=== PATIENT | female | born 1995 | race Caucasian/White ===

== ENCOUNTER 2016-04-25 20:54 | Emergency (ER) | payer MEDICAID ==
[2016-04-25 21:03] VITALS: BP 151/70; PULSE 96; RESP 18; TEMP 98
[2016-04-25] MEDS ORDERED: ONDANSETRON ODT 4 MG TAB PO STA (21:23)
--- NOTE | 2016-04-25 21:25 | ED ---
General Adult HPI - General Chief complaint: Abdominal Pain Stated complaint: Female Time Seen by Provider: 04/25/16 21:19 Source: patient, RN notes reviewed Mode of arrival: ambulatory Limitations: no limitations - History of Present Illness Initial comments: Patient is a pleasant 20-year-old female presenting to the emergency department with complaints of dysuria. Onset was yesterday. Symptoms have progressively worsened since that time. Patient does have a Barrett and hematuria as well. No vaginal discharge. Patient has mild suprapubic discomfort. Patient has moderate nausea. No vomiting. No back pain. No fevers. Patient has had similar symptoms associated with urinary tract infection in the past. - Related Data Home Medications Medication Instructions Recorded Confirmed LORazepam [Ativan] 0.5 mg PO TID PRN 04/25/16 04/25/16 Previous Rx's Medication Instructions Recorded Ondansetron Odt [Zofran Odt] 4 mg PO Q8HR PRN #10 tab 04/25/16 Phenazopyridine [Pyridium] 200 mg PO TID #5 tablet 04/25/16 Sulfamethox-Tmp 800-160Mg [Bactrim 1 each PO Q12HR #18 tab 04/25/16 DS 800-160 mg] Allergies Allergy/AdvReac Type Severity Reaction Status Date / Time No Known Allergies Allergy Verified 04/25/16 21:41 Review of Systems ROS Statement: Those systems with pertinent positive or pertinent negative responses have been documented in the HPI. ROS Other: All systems not noted in ROS Statement are negative. Constitutional: Denies: fever Eyes: Denies: eye pain ENT: Denies: ear pain Respiratory: Denies: cough Cardiovascular: Denies: chest pain Endocrine: Denies: fatigue Gastrointestinal: Reports: nausea Genitourinary: Reports: urgency, dysuria, frequency, hematuria. Denies: discharge Musculoskeletal: Denies: back pain Skin: Denies: rash Past Medical History Past Medical History: No Reported History History of Any Multi-Drug Resistant Organisms: None Reported Past Surgical History: Orthopedic Surgery Past Psychological History: Anxiety Smoking Status: Never smoker Past Alcohol Use History: None Reported Past Drug Use History: None Reported General Exam Limitations: no limitations General appearance: alert, in no apparent distress Head exam: Present: atraumatic Eye exam: Present: normal appearance Neck exam: Present: normal inspection Respiratory exam: Present: normal lung sounds bilaterally Cardiovascular Exam: Present: regular rate, normal rhythm GI/Abdominal exam: Present: soft, tenderness (Mild suprapubic). Absent: distended, guarding, rebound, rigid Extremities exam: Present: normal inspection Neurological exam: Present: alert Psychiatric exam: Present: normal affect, normal mood Skin exam: Absent: rash Course Vital Signs 04/25/16 20:59 Temperature 98.0 F Pulse Rate 96 Respiratory 18 Rate Blood Pressure 151/70 O2 Sat by Pulse 98 Oximetry Medical Decision Making - Lab Data Lab Results 04/25/16 04/25/16 Range/Units 21:27 21:27 Urine RBC >182 H (0-5) /hpf Urine WBC >182 H (0-5) /hpf Urine WBC Clumps Few H (None) /hpf Ur Squamous Epith Cells 4 (0-4) /hpf Urine Bacteria Occasional H (None) /hpf Urine Yeast (Budding) Few H (None) /hpf Urine HCG, Qual Not Detected (Not Detectd) Disposition Clinical Impression: Urinary tract infection Disposition: HOME SELF-CARE Condition: Stable Instructions: Urinary Tract Infection in Women (ED) Additional Instructions: Please follow-up with primary care physician in the next couple of days for recheck. Return for increased pain, abdominal pain, back pain, vomiting, fevers , worsening symptoms or other concerns. Prescriptions: Ondansetron Odt [Zofran Odt] 4 mg PO Q8HR PRN #10 tab PRN Reason: Nausea Phenazopyridine [Pyridium] 200 mg PO TID #5 tablet Sulfamethox-Tmp 800-160Mg [Bactrim DS 800-160 mg] 1 each PO Q12HR #18 tab Referrals: Dallas Mccloud MD [Primary Care Provider] - 1-2 days Time of Disposition: 22:08
[2016-04-25 22:02] LABS: Bacteria,Urine Occasional /hpf; Particle Count 3277; RBC,Urine >182 /hpf (0-5); Squamous Epithelial Cell,Urine 4 /hpf (0-4); WBC,Urine >182 /hpf (0-5)
[2016-04-25 22:04] LABS: Appearance,Urine Slightly Cloudy (Clear)
[2016-04-25 22:06] LABS: UA Billing (MACRO vs. MICRO) MICRO
[2016-04-25] MEDS ORDERED: SULFAMETH-TMP DS STARTER PACK 2 TAB BTL PO STA (22:06)
[2016-04-25] MEDS ORDERED: PHENAZOPYRIDINE 200 MG TAB PO STA (22:06)
== END 2016-04-25 22:25 | disposition home or self-care (01) ==
LOC: EC 20:54
DX: N39.0 Urinary tract infection, site not specified (principal); R31.9 Hematuria, unspecified
CPT/HCPCS: 81001; 81025; 87086; 99284

== ENCOUNTER 2016-06-06 16:38 | Emergency (ER) | payer MEDICAID ==
[2016-06-06] MEDS ORDERED: SODIUM CHLORIDE 0.9% 1,000 ML IV STA ×2 (17:26)
[2016-06-06] MEDS ORDERED: ONDANSETRON 4 MG/2 ML VIAL IVP STA (17:26)
--- NOTE | 2016-06-06 17:28 | ED ---
General Adult HPI - General Chief complaint: Abdominal Pain Stated complaint: Abd Pain, Vomiting Time Seen by Provider: 06/06/16 17:20 Source: patient, RN notes reviewed Mode of arrival: ambulatory Limitations: no limitations - History of Present Illness Initial comments: Patient 20-year-old female who presents emergency room today with chief complaint of symptoms of nausea vomiting times one day. She does admit to some abdominal cramping yesterday. States pain is getting worse to the right side of the abdomen today. Patient admits to episodes of nausea vomiting proxy 4:30 AM. Denies any signs of blood. Denies any diarrhea. Denies ever having similar symptoms in the past. Denies any surgical history. Patient denies any recent fever, chills, shortness of breath, chest pain, back pain, numbness or tingling, dysuria or hematuria, constipation or diarrhea, headaches or visual changes, or any other complaints. - Related Data Home Medications Medication Instructions Recorded Confirmed No Known Home Medications [No 06/06/16 06/06/16 Known Home Medications] Allergies Allergy/AdvReac Type Severity Reaction Status Date / Time Iodinated Contrast Media - Allergy Unknown Verified 06/06/16 17:34 Oral and Review of Systems ROS Statement: Those systems with pertinent positive or pertinent negative responses have been documented in the HPI. ROS Other: All systems not noted in ROS Statement are negative. Past Medical History Past Medical History: No Reported History History of Any Multi-Drug Resistant Organisms: None Reported Past Surgical History: Orthopedic Surgery Past Psychological History: Anxiety Smoking Status: Never smoker Past Alcohol Use History: None Reported Past Drug Use History: None Reported General Exam - General Exam Comments Initial Comments: General: The patient is awake and alert, in no distress, and does not appear acutely ill. Eye: Pupils are equal, round and reactive to light, extra-ocular movements are intact. No nystagmus. There is normal conjunctiva bilaterally. No signs of icterus. Ears, nose, mouth and throat: There are moist mucous membranes and no oral lesions. Neck: The neck is supple, there is no tenderness or JVD. Cardiovascular: There is a regular rate and rhythm. No murmur, rub or gallop is appreciated. Respiratory: Lungs are clear to auscultation, respirations are non-labored, breath sounds are equal. No wheezes, stridor, rales, or rhonchi. Gastrointestinal: Soft, non-distended, non-tender abdomen without masses or organomegaly noted. There is no rebound or guarding present. No CVA tenderness. Bowel sounds are unremarkable. Musculoskeletal: Normal ROM, no tenderness. Strength 5/5. Sensation intact. Pulses equal bilaterally 2+. Neurological: A&O x 3. CN II-XII intact, There are no obvious motor or sensory deficits. Coordination appears grossly intact. Speech is normal. Skin: Skin is warm and dry and no rashes or lesions are noted. Psychiatric: Cooperative, appropriate mood & affect, normal judgment. Limitations: no limitations Course Vital Signs 06/06/16 06/06/16 17:02 19:04 Temperature 97.9 F 98.5 F Pulse Rate 94 74 Respiratory 18 18 Rate Blood Pressure 143/77 106/64 O2 Sat by Pulse 97 100 Oximetry Medical Decision Making - Medical Decision Making Patient reexamined at this time shows no signs of distress. Signs symptoms of early appendicitis were discussed. At this time patient has no rebound tenderness. No guarding. No tenderness over McBurney's point. Negative laxity. Negative white count. No fever. Patient will be discharged with nausea medication. Advised return to emergency room if any symptoms increase or worsen or for any other concerns. - Lab Data Result diagrams: 06/06/16 18:02 06/06/16 18:02 Lab Results 06/06/16 06/06/16 06/06/16 Range/Units 18:02 18:02 18:02 WBC 7.2 (3.8-10.6) k/uL RBC 4.80 (3.80-5.40) m/uL Hgb 14.2 (11.4-16.0) gm/dL Hct 43.0 (34.0-46.0) % MCV 89.7 (80.0-100.0) fL MCH 29.6 (25.0-35.0) pg MCHC 33.0 (31.0-37.0) g/dL RDW 12.7 (11.5-15.5) % Plt Count 343 (150-450) k/uL Neutrophils % 58 % Lymphocytes % 28 % Monocytes % 7 % Eosinophils % 4 % Basophils % 1 % Neutrophils # 4.2 (1.3-7.7) k/uL Lymphocytes # 2.0 (1.0-4.8) k/uL Monocytes # 0.5 (0-1.0) k/uL Eosinophils # 0.3 (0-0.7) k/uL Basophils # 0.1 (0-0.2) k/uL Sodium 142 (137-145) mmol/L Potassium 4.0 (3.5-5.1) mmol/L Chloride 104 (98-107) mmol/L Carbon Dioxide 25 (22-30) mmol/L Anion Gap 13 mmol/L BUN 10 (7-17) mg/dL Creatinine 0.68 (0.52-1.04) mg/dL Est GFR (MDRD) Af Amer >60 (>60 ml/min/1.73 sqM) Est GFR (MDRD) Non-Af >60 (>60 ml/min/1.73 sqM) Glucose 88 (74-99) mg/dL Plasma Lactic Acid James (0.7-2.0) mmol/L Calcium 10.0 (8.4-10.2) mg/dL Total Bilirubin 1.1 (0.2-1.3) mg/dL AST 24 (14-36) U/L ALT 29 (9-52) U/L Alkaline Phosphatase 62 (38-126) U/L Total Protein 7.8 (6.3-8.2) g/dL Albumin 4.8 (3.5-5.0) g/dL Amylase 61 (30-110) U/L Lipase 39 (23-300) U/L Urine Color Urine Appearance (Clear) Urine pH (5.0-8.0) Ur Specific [place] (1.001-1.035) Urine Protein (Negative) Urine Glucose (UA) (Negative) Urine Ketones (Negative) Urine Blood (Negative) Urine Nitrite (Negative) Urine Bilirubin (Negative) Urine Urobilinogen (<2.0) mg/dL Ur Leukocyte Esterase (Negative) Urine RBC (0-5) /hpf Urine WBC (0-5) /hpf Ur Squamous Epith Cells (0-4) /hpf Urine Bacteria (None) /hpf Urine HCG, Qual Not Detected (Not Detectd) 06/06/16 06/06/16 Range/Units 18:02 18:02 WBC (3.8-10.6) k/uL RBC (3.80-5.40) m/uL Hgb (11.4-16.0) gm/dL Hct (34.0-46.0) % MCV (80.0-100.0) fL MCH (25.0-35.0) pg MCHC (31.0-37.0) g/dL RDW (11.5-15.5) % Plt Count (150-450) k/uL Neutrophils % % Lymphocytes % % Monocytes % % Eosinophils % % Basophils % % Neutrophils # (1.3-7.7) k/uL Lymphocytes # (1.0-4.8) k/uL Monocytes # (0-1.0) k/uL Eosinophils # (0-0.7) k/uL Basophils # (0-0.2) k/uL Sodium (137-145) mmol/L Potassium (3.5-5.1) mmol/L Chloride (98-107) mmol/L Carbon Dioxide (22-30) mmol/L Anion Gap mmol/L BUN (7-17) mg/dL Creatinine (0.52-1.04) mg/dL Est GFR (MDRD) Af Amer (>60 ml/min/1.73 sqM) Est GFR (MDRD) Non-Af (>60 ml/min/1.73 sqM) Glucose (74-99) mg/dL Plasma Lactic Acid James 0.8 (0.7-2.0) mmol/L Calcium (8.4-10.2) mg/dL Total Bilirubin (0.2-1.3) mg/dL AST (14-36) U/L ALT (9-52) U/L Alkaline Phosphatase (38-126) U/L Total Protein (6.3-8.2) g/dL Albumin (3.5-5.0) g/dL Amylase (30-110) U/L Lipase (23-300) U/L Urine Color Yellow Urine Appearance Clear (Clear) Urine pH 6.5 (5.0-8.0) Ur Specific [place] 1.014 (1.001-1.035) Urine Protein Negative (Negative) Urine Glucose (UA) Negative (Negative) Urine Ketones Negative (Negative) Urine Blood Trace H (Negative) Urine Nitrite Negative (Negative) Urine Bilirubin Negative (Negative) Urine Urobilinogen <2.0 (<2.0) mg/dL Ur Leukocyte Esterase Negative (Negative) Urine RBC 2 (0-5) /hpf Urine WBC <1 (0-5) /hpf Ur Squamous Epith Cells 3 (0-4) /hpf Urine Bacteria Rare H (None) /hpf Urine HCG, Qual (Not Detectd) Disposition Clinical Impression: Nausea and vomiting Disposition: HOME SELF-CARE Condition: Good Instructions: Acute Nausea and Vomiting (ED) Additional Instructions: Please use medication as discussed. Please follow-up with family doctor in the next 2 days of symptoms have not improved. Please return to emergency room if the symptoms increase or worsen or for any other concerns. Time of Disposition: 19:19
[2016-06-06 18:15] LABS: Basophils # (A) 0.1 k/uL (0-0.2); Basophils % (A) 1 %; CH 29.8; CHCM 33.4; Eosinophils # (A) 0.3 k/uL (0-0.7); Eosinophils % (A) 4 %; HDW 2.27; HGB 14.2 gm/dL (11.4-16.0); Luc # (Auto) 0.14; Luc % (Auto) 2; Lymphocytes % (A) 28 %; MCH 29.6 pg (25.0-35.0); MCV 89.7 fL (80.0-100.0); Mean Platelet Volume 6.6; Monocytes # (A) 0.5 k/uL (0-1.0); Monocytes % (A) 7 %; Neutrophils # (A) 4.2 k/uL (1.3-7.7); Neutrophils % (A) 58 %; RDW 12.7 % (11.5-15.5); WBC 7.2 k/uL (3.8-10.6); WBC (Perox) 7.32
[2016-06-06 18:18] LABS: Appearance,Urine Clear (Clear); Bacteria,Urine Rare /hpf; Bilirubin,Urine Negative (Negative); Glucose,Urine (UA) Negative (Negative); Ketones,Urine Negative (Negative); Leukocyte Esterase,Urine Negative (Negative); Nitrite,Urine Negative (Negative); PH, Urine 6.5 (5.0-8.0); Particle Count 980; Protein,Urine Negative (Negative); RBC,Urine 2 /hpf (0-5); Specific Gravity,Urine 1.014 (1.001-1.035); Squamous Epithelial Cell,Urine 3 /hpf (0-4); UA Billing (MACRO vs. MICRO) MICRO; Urobilinogen,Urine <2.0 mg/dL (<2.0); WBC,Urine <1 /hpf (0-5)
[2016-06-06 18:29] LABS: ALT 29 U/L (9-52); AST 24 U/L (14-36); Alkaline Phosphatase 62 U/L (38-126); Amylase 61 U/L (30-110); Anion Gap 13 mmol/L; Blood Urea Nitrogen 10 mg/dL (7-17); Carbon Dioxide 25 mmol/L (22-30); Chloride 104 mmol/L (98-107); Glucose 88 mg/dL (74-99); Non-African American GFR(MDRD) >60 (>60 ml/min/1.73 sqM); Sodium 142 mmol/L (137-145); Total Bilirubin 1.1 mg/dL (0.2-1.3); Total Protein 7.8 g/dL (6.3-8.2)
--- NOTE | 2016-06-06 18:34 | XR ---
EXAMINATION TYPE: XR KUB DATE OF EXAM: 06/06/2016 6:25 PM CLINICAL HISTORY: Abdominal pain and vomiting. TECHNIQUE: 2 upright KUB images of the abdomen are obtained. COMPARISON: CT abdomen pelvis February 18, 2010. FINDINGS: Scattered gas is seen in non-distended stomach and small bowel loops. Gas and fecal mater ial is seen in non-distended colon. There is no visceromegaly, pneumoperitoneum, or abnormal calcif ication appreciated. The lung bases are clear and the osseous structures are intact. IMPRESSION: Overall nonobstructive bowel gas pattern.
[2016-06-06] MEDS ORDERED: KETOROLAC 30 MG/ML 1 ML VIAL IVP STA (18:52)
[2016-06-06 20:00] VITALS: BP 113/65; PULSE 82; RESP 16; TEMP 97.8
== END 2016-06-06 19:54 | disposition home or self-care (01) ==
LOC: EC 16:38
DX: R11.2 Nausea with vomiting, unspecified (principal); R10.9 Unspecified abdominal pain; Z91.041 Radiographic dye allergy status
CPT/HCPCS: 99284; 96374; 96375; 96361; 36415; 80053; 82150; 83605; 83690; 85025; 81001; 81025; 74000; J2405; J1885

== ENCOUNTER 2016-07-13 10:33 | Emergency (ER) | payer MEDICAID ==
[2016-07-13] MEDS ORDERED: SODIUM CHLORIDE 0.9% 1,000 ML IV ONE (11:45)
[2016-07-13] MEDS ORDERED: diphenhydrAMINE 50 MG/ML 1 ML VIAL IVP STA (11:46)
[2016-07-13] MEDS ORDERED: PYRIDOXINE 100 MG/ML 1 ML VIAL IVP STA (11:46)
[2016-07-13 11:58] LABS: Appearance,Urine Clear (Clear); Bilirubin,Urine Negative (Negative); Glucose,Urine (UA) Negative (Negative); Ketones,Urine Negative (Negative); Leukocyte Esterase,Urine Negative (Negative); Nitrite,Urine Negative (Negative); Protein,Urine Negative (Negative); Specific Gravity,Urine 1.014 (1.001-1.035); UA Billing (MACRO vs. MICRO) CHEM; Urobilinogen,Urine <2.0 mg/dL (<2.0)
[2016-07-13 12:04] LABS: Basophils % (A) 0 %; CH 30.2; CHCM 33.7; Eosinophils # (A) 0.3 k/uL (0-0.7); Eosinophils % (A) 3 %; HCT 39.7 % (34.0-46.0); HDW 2.17; HGB 13.2 gm/dL (11.4-16.0); Luc # (Auto) 0.15; Luc % (Auto) 2; Lymphocytes # (A) 1.8 k/uL (1.0-4.8); Lymphocytes % (A) 21 %; MCH 29.9 pg (25.0-35.0); MCHC 33.3 g/dL (31.0-37.0); MCV 89.8 fL (80.0-100.0); Mean Platelet Volume 6.7; Monocytes # (A) 0.5 k/uL (0-1.0); Monocytes % (A) 5 %; Neutrophils # (A) 6.1 k/uL (1.3-7.7); Neutrophils % (A) 69 %; RBC 4.42 m/uL (3.80-5.40); WBC 8.9 k/uL (3.8-10.6); WBC (Perox) 8.75
[2016-07-13 12:09] LABS: ALT 26 U/L (9-52); AST 21 U/L (14-36); Alkaline Phosphatase 63 U/L (38-126); Amylase 65 U/L (30-110); Anion Gap 13 mmol/L; Blood Urea Nitrogen 7 mg/dL (7-17); Calcium 10.1 mg/dL (8.4-10.2); Carbon Dioxide 22 mmol/L (22-30); Chloride 105 mmol/L (98-107); Glucose 89 mg/dL (74-99); Magnesium 1.9 mg/dL (1.6-2.3); Non-African American GFR(MDRD) >60 (>60 ml/min/1.73 sqM); Potassium 4.2 mmol/L (3.5-5.1); Sodium 140 mmol/L (137-145); Total Bilirubin 1.1 mg/dL (0.2-1.3); Total Protein 7.5 g/dL (6.3-8.2)
--- NOTE | 2016-07-13 12:22 | ED ---
Nausea/Vomiting/Diarrhea HPI - General Chief complaint: Nausea/Vomiting/Diarrhea Stated complaint: 6 WEEKS PREG, VOMITING AND ABDOMINAL PAIN Time Seen by Provider: 07/13/16 11:44 Source: patient, RN notes reviewed Mode of arrival: wheelchair Limitations: no limitations - History of Present Illness Initial comments: Patient's 20-year-old female presents to the emergency room for evaluation of nausea vomiting abdominal pain. Patient states she is about 6 weeks . Patient states this is her first . Patient states she hasn't followed up with [facility] regarding this yet. Patient states she's been vomiting the past 4 days. Patient also has been developing lower abdominal cramping since yesterday. Patient denies vaginal bleeding. Patient denies abnormal vaginal discharge. Patient denies pain or burning during urination, trouble urinating or blood in urine. patient denies history of STDs. Patient states she is beginning to feel weak because she is unable to eat. Patient denies fevers or chills. Patient states she has slight dizziness. Patient denies chest pain or shortness of breath. - Related Data Home Medications Medication Instructions Recorded Confirmed Pnv,Calcium 72/Iron/Folic Acid 1 tab PO DAILY 07/13/16 07/13/16 [ Plus Tablet] Previous Rx's Medication Instructions Recorded Ondansetron Odt [Zofran ODT] 4 mg PO Q8HR PRN #20 tab 06/06/16 Metoclopramide HCl [Reglan] 5 mg PO TID PRN #12 tablet 07/13/16 Allergies Allergy/AdvReac Type Severity Reaction Status Date / Time Iodinated Contrast Media - Allergy Unknown Verified 07/13/16 11:17 Oral and Review of Systems ROS Statement: Those systems with pertinent positive or pertinent negative responses have been documented in the HPI. ROS Other: All systems not noted in ROS Statement are negative. Past Medical History Past Medical History: No Reported History History of Any Multi-Drug Resistant Organisms: None Reported Past Surgical History: Orthopedic Surgery Past Psychological History: Anxiety Smoking Status: Never smoker Past Alcohol Use History: None Reported Past Drug Use History: None Reported General Exam - General Exam Comments Initial Comments: laying in exam room, no acute distress. Limitations: no limitations General appearance: alert, in no apparent distress Head exam: Present: atraumatic, normocephalic, normal inspection Eye exam: Present: normal appearance ENT exam: Present: normal exam Neck exam: Present: normal inspection Respiratory exam: Present: normal lung sounds bilaterally. Absent: respiratory distress Cardiovascular Exam: Present: regular rate, normal rhythm, normal heart sounds GI/Abdominal exam: Present: soft, normal bowel sounds. Absent: distended, tenderness, guarding, rebound, rigid Extremities exam: Present: normal inspection Back exam: Present: normal inspection Neurological exam: Present: alert, oriented X3, CN II-XII intact, normal gait Psychiatric exam: Present: normal affect, normal mood Skin exam: Present: warm, dry, intact, normal color. Absent: rash Course Vital Signs 07/13/16 07/13/16 10:48 14:13 Temperature 98.9 F 97.4 F L Pulse Rate 89 94 Respiratory 20 18 Rate Blood Pressure 128/73 121/62 O2 Sat by Pulse 97 100 Oximetry Medical Decision Making - Medical Decision Making patient is a 20-year-old female presents to the emergency room for evaluation of nausea, vomiting and abdominal cramping. Patient is . This is patient' s first . Patient was given fluids and medication for nausea. Patient states that she is feeling a lot better. Ultrasound showed a early intrauterine . Advised patient to follow-up with [facility]. Patient states she understands everything that was discussed with her. Return parameters discussed. Case discussed with Dr. Haynes. - Lab Data Result diagrams: 07/13/16 11:13 07/13/16 11:13 Lab Results 07/13/16 07/13/16 07/13/16 Range/Units 11:13 11:13 11:13 WBC 8.9 (3.8-10.6) k/uL RBC 4.42 (3.80-5.40) m/uL Hgb 13.2 (11.4-16.0) gm/dL Hct 39.7 (34.0-46.0) % MCV 89.8 (80.0-100.0) fL MCH 29.9 (25.0-35.0) pg MCHC 33.3 (31.0-37.0) g/dL RDW 13.0 (11.5-15.5) % Plt Count 345 (150-450) k/uL Neutrophils % 69 % Lymphocytes % 21 % Monocytes % 5 % Eosinophils % 3 % Basophils % 0 % Neutrophils # 6.1 (1.3-7.7) k/uL Lymphocytes # 1.8 (1.0-4.8) k/uL Monocytes # 0.5 (0-1.0) k/uL Eosinophils # 0.3 (0-0.7) k/uL Basophils # 0.0 (0-0.2) k/uL Sodium 140 (137-145) mmol/L Potassium 4.2 (3.5-5.1) mmol/L Chloride 105 (98-107) mmol/L Carbon Dioxide 22 (22-30) mmol/L Anion Gap 13 mmol/L BUN 7 (7-17) mg/dL Creatinine 0.55 (0.52-1.04) mg/dL Est GFR (MDRD) Af Amer >60 (>60 ml/min/1.73 sqM) Est GFR (MDRD) Non-Af >60 (>60 ml/min/1.73 sqM) Glucose 89 (74-99) mg/dL Calcium 10.1 (8.4-10.2) mg/dL Magnesium 1.9 (1.6-2.3) mg/dL Total Bilirubin 1.1 (0.2-1.3) mg/dL AST 21 (14-36) U/L ALT 26 (9-52) U/L Alkaline Phosphatase 63 (38-126) U/L Total Protein 7.5 (6.3-8.2) g/dL Albumin 4.8 (3.5-5.0) g/dL Amylase 65 (30-110) U/L Lipase 38 (23-300) U/L HCG, Quant 11471.1 mIU/mL Urine Color Yellow Urine Appearance Clear (Clear) Urine pH 6.0 (5.0-8.0) Ur Specific [place] 1.014 (1.001-1.035) Urine Protein Negative (Negative) Urine Glucose (UA) Negative (Negative) Urine Ketones Negative (Negative) Urine Blood Negative (Negative) Urine Nitrite Negative (Negative) Urine Bilirubin Negative (Negative) Urine Urobilinogen <2.0 (<2.0) mg/dL Ur Leukocyte Esterase Negative (Negative) - Radiology Data Radiology results: report reviewed, image reviewed Disposition Clinical Impression: Nausea and vomiting in , Abdominal pain affecting Disposition: HOME SELF-CARE Condition: Good Instructions: Nausea and Vomiting in (ED), Abdominal Pain in (ED) Additional Instructions: Drink plenty of fluids. Tylenol as needed for discomfort. Please follow up with [facility]. If any new symptom arises or symptoms worsen, return to ER as soon as possible. Prescriptions: Metoclopramide HCl [Reglan] 5 mg PO TID PRN #12 tablet PRN Reason: Nausea Referrals: Dallas Mccloud MD [Primary Care Provider] - 1-2 days Ashlyn Carvajal DO [Doctor of Osteopathic Medicine] - 1-2 days Time of Disposition: 13:55
[2016-07-13] MEDS ORDERED: ACETAMINOPHEN TAB 325 MG TAB PO STA (12:42)
[2016-07-13 12:54] LABS: HCG,Quantitative Serum 34612.1 mIU/mL
--- NOTE | 2016-07-13 13:30 | US ---
EXAMINATION TYPE: US OB <=14 wks transvag DATE OF EXAM: 07/13/2016 COMPARISON: NONE CLINICAL HISTORY: Pain. EXAM PERFORMED: Transvaginal (TV) and Transabdominal (TA) endovaginal scanning was performed for bet ter evaluation of the uterus and ovaries. EXAM MEASUREMENTS: GESTATIONAL AGE / DATING Physician Established: (5 weeks/5 days) EDC: 03/10/2017 Dates by LMP: (5 weeks/5 days) EDC: 03/10/2017 Dates by First Scan: no previous Dates by Current Scan for: (5 weeks/6 days) EDC: 03/10/2017 MATERNAL ANATOMY Uterus: 9.3 x 5.0 x 5.9 cm Right Ovary: 2.2 x 2.2 x 2.4 cm Left Ovary: 3.3 x 1.8 x 2.4 cm Post CDS / Adnexa: wnl Presence of free fluid: no Presence of corpus luteal cyst: no Presence of subchorionic bleed: no GESTATION / SURVEY CRL: 0.3 cm (5 weeks/6 days) Yolk Sac (normal less than 6mm): 4 mm Heart Rate: cardiac motion identified, cannot measure with accuracy due to size of fetus Date of LMP: 06/03/2016 Early IUP of 5 weeks 6 days. Cardiac motion detected, but unable to measure with accuracy due to fet al size IMPRESSION: Exam is limited. Findings may correspond to early gestation approximately 5 weeks 6 days with estimat ed date of delivery 09 March 2017, follow-up is suggested.
[2016-07-13 14:13] VITALS: BP 121/62; PULSE 94; RESP 18; TEMP 97.4
== END 2016-07-13 14:13 | disposition home or self-care (01) ==
LOC: EC 10:33
DX: O21.9 Vomiting of pregnancy, unspecified (principal); O99.89 Other specified diseases and conditions complicating pregnancy, childbirth and the puerperium; R10.30 Lower abdominal pain, unspecified; Z3A.01 Less than 8 weeks gestation of pregnancy; Z79.899 Other long term (current) drug therapy; Z91.041 Radiographic dye allergy status
CPT/HCPCS: 80053; 82150; 83690; 83735; 85025; 81003; 84702; 76801; 76817; 99284; 96374; 96375; 96361 ×2; J1200; J3415

== ENCOUNTER 2016-07-27 08:30 | Emergency (ER) | payer MEDICAID ==
[2016-07-27] MEDS ORDERED: ACETAMINOPHEN TAB 500 MG TAB PO STA (08:43)
[2016-07-27] MEDS ORDERED: METOCLOPRAMIDE 5 MG/ML 2 ML VIAL IVP STA (08:43)
[2016-07-27] MEDS ORDERED: SODIUM CHLORIDE 0.9% 1,000 ML IV STA (08:43)
--- NOTE | 2016-07-27 08:58 | ED ---
Chest Pain HPI - General Chief Complaint: Chest Pain Stated Complaint: CHEST PAIN, 8 WEEKS PREG Time Seen by Provider: 07/27/16 08:37 Source: patient, RN notes reviewed Mode of arrival: wheelchair Limitations: no limitations - History of Present Illness Initial Comments: 20-year-old female presents to the emergency Department chief complaint of left- sided chest pain. Patient states it feels as if her heart is pounding. Patient states she does have some mild shortness of breath with this. Patient does admit to a history of constipation and states that she is currently . Patient states she's had increased nausea and vomiting and has not been tolerating much oral fluids. Patient states that she talked to her glass etcher and she was referred here. Patient states that she is a states that she has had an ultrasound that showed normal thus far. Patient does admit to nausea and vomiting this . Patient states she was concerned due to her symptoms so she thought she should be evaluated. Patient denies any recent fever, chills, back pain, abdominal pain, numbness or tingling, dysuria or hematuria, constipation or diarrhea, headaches or visual changes, or any other current symptoms. - Related Data Home Medications Medication Instructions Recorded Confirmed Pnv,Calcium 72/Iron/Folic Acid 1 tab PO DAILY 07/13/16 07/27/16 [ Plus Tablet] Previous Rx's Medication Instructions Recorded Metoclopramide HCl [Reglan] 5 mg PO TID PRN #12 tablet 07/13/16 Allergies Allergy/AdvReac Type Severity Reaction Status Date / Time Iodinated Contrast Media - Allergy Anaphylaxis Verified 07/27/16 08:56 Oral and Review of Systems ROS Statement: Those systems with pertinent positive or pertinent negative responses have been documented in the HPI. ROS Other: All systems not noted in ROS Statement are negative. Past Medical History Past Medical History: No Reported History Additional Past Medical History / Comment(s): posteral orthostatic tachycardia History of Any Multi-Drug Resistant Organisms: None Reported Past Surgical History: No Surgical Hx Reported, Orthopedic Surgery Past Psychological History: Anxiety Smoking Status: Never smoker Past Alcohol Use History: None Reported Past Drug Use History: None Reported General Exam - General Exam Comments Initial Comments: General: The patient is awake and alert, in no distress, and does not appear acutely ill. Eye: Pupils are equal, round and reactive to light, extra-ocular movements are intact; there is normal conjunctiva bilaterally. No signs of icterus. Ears, nose, mouth and throat: There are moist mucous membranes and no oral lesions. Neck: The neck is supple, there is no tenderness. Cardiovascular: There is a regular rate and rhythm. No murmur, rub or gallop is appreciated. Respiratory: Lungs are clear to auscultation, respirations are non-labored, breath sounds are equal. No wheezes, stridor, rales, or rhonchi. Gastrointestinal: Soft, non-distended, non-tender abdomen without masses or organomegaly noted. There is no rebound or guarding present. No CVA tenderness. Bowel sounds are unremarkable. Back: There is no tenderness to palpation in the midline. There is no obvious deformity. No rashes noted. Musculoskeletal: Normal ROM, no tenderness, There is no pedal edema. There is no calf tenderness or swelling. Sensation intact. Pulses equal bilaterally 2+. Neurological: CN II-XII intact, There are no obvious motor or sensory deficits. Coordination appears grossly intact. Speech is normal. Skin: Skin is warm and dry and no rashes or lesions are noted. Psychiatric: Cooperative, appropriate mood & affect, normal judgment. Limitations: no limitations Course Vital Signs 07/27/16 07/27/16 07/27/16 08:33 09:15 09:45 Temperature 97.7 F Pulse Rate 101 H 82 87 Respiratory 18 16 18 Rate Blood Pressure 121/86 116/72 107/69 O2 Sat by Pulse 100 99 Oximetry Chest Pain MDM - MDM 20-year-old female presents to the emergency department with chief complaint of left-sided chest pain in . At this time patient's heart rate has decreased with a liter of fluids. Patient states she is feeling much better and the pain has resolved. At this time we did discuss that there are causes for chest pain in the patient. We did discuss that she needs close follow-up and when to return to the emergency department. We did discuss all the patient' s questions. She stated that she understood and she is feeling much better and she is ready to go home. At this time the patient will be discharged home. We did discuss all of her questions. She is comfortable with the plan. Disposition Clinical Impression: Tachycardia, Left sided chest pain, Nausea and vomiting in Disposition: HOME SELF-CARE Condition: Stable Instructions: Chest Pain (ED) Additional Instructions: Please use medication as discussed. Please follow up with family doctor if symptoms have not improved over the next two days. Please return to the emergency room if your symptoms increase or worsen or for any other concerns. Referrals: Dallas Mccloud MD [Primary Care Provider] - 1-2 days Time of Disposition: 10:33
[2016-07-27 09:19] LABS: Basophils % (A) 0 %; CH 30.3; CHCM 35.4; Eosinophils # (A) 0.3 k/uL (0-0.7); Eosinophils % (A) 2 %; HDW 2.32; HGB 13.5 gm/dL (11.4-16.0); Luc # (Auto) 0.21; Luc % (Auto) 2; Lymphocytes # (A) 2.1 k/uL (1.0-4.8); Lymphocytes % (A) 19 %; MCH 29.8 pg (25.0-35.0); MCHC 34.6 g/dL (31.0-37.0); MCV 86.1 fL (80.0-100.0); Mean Platelet Volume 6.3; Monocytes # (A) 0.6 k/uL (0-1.0); Monocytes % (A) 6 %; Neutrophils % (A) 71 %; RBC 4.52 m/uL (3.80-5.40); RDW 12.7 % (11.5-15.5); WBC 11.2 k/uL (3.8-10.6); WBC (Perox) 11.35
[2016-07-27 09:34] LABS: ALT 27 U/L (9-52); AST 18 U/L (14-36); Alkaline Phosphatase 66 U/L (38-126); Anion Gap 14 mmol/L; Blood Urea Nitrogen 7 mg/dL (7-17); Calcium 10.2 mg/dL (8.4-10.2); Carbon Dioxide 19 mmol/L (22-30); Chloride 104 mmol/L (98-107); Glucose 82 mg/dL (74-99); Non-African American GFR(MDRD) >60 (>60 ml/min/1.73 sqM); Potassium 3.7 mmol/L (3.5-5.1); Sodium 137 mmol/L (137-145); Total Bilirubin 0.8 mg/dL (0.2-1.3); Total Protein 7.6 g/dL (6.3-8.2)
[2016-07-27 09:51] LABS: Appearance,Urine Clear (Clear); Bilirubin,Urine Negative (Negative); Glucose,Urine (UA) Negative (Negative); Ketones,Urine Negative (Negative); Leukocyte Esterase,Urine Negative (Negative); Nitrite,Urine Negative (Negative); Protein,Urine Negative (Negative); Specific Gravity,Urine 1.007 (1.001-1.035); UA Billing (MACRO vs. MICRO) CHEM; Urobilinogen,Urine <2.0 mg/dL (<2.0)
[2016-07-27 10:53] VITALS: BP 106/72; PULSE 95; RESP 16; TEMP 98.2
== END 2016-07-27 10:53 | disposition home or self-care (01) ==
LOC: EC 08:30
DX: O99.89 Other specified diseases and conditions complicating pregnancy, childbirth and the puerperium (principal); R07.9 Chest pain, unspecified; O21.0 Mild hyperemesis gravidarum; R00.0 Tachycardia, unspecified; R06.02 Shortness of breath; Z3A.08 8 weeks gestation of pregnancy; Z91.041 Radiographic dye allergy status
CPT/HCPCS: 36415; 93005; 80053; 85025; 81003; 87086; 99285; 96374; 96361; J2765

== ENCOUNTER → 2016-08-08 | Outpatient (CLI) | payer MEDICAID ==
--- NOTE | 2016-08-08 09:15 | US ---
EXAMINATION TYPE: US OB <= 14 wk fetus DATE OF EXAM: 08/08/2016 COMPARISON: US CLINICAL HISTORY: Z36 confirm dates. CONFIRM DATES. EXAM PERFORMED: Transabdominal (TA) EXAM MEASUREMENTS: GESTATIONAL AGE / DATING Physician Established: NOT ESTABLISHED Dates by LMP: (9 weeks/3 days) EDC: 03/10/17 Dates by First Scan: (9 weeks/3 days) EDC: 03/10/17 Dates by Current Scan for: (9 weeks/4 days) EDC: 03/09/2017 MATERNAL ANATOMY Uterus: 13.0 X 6.3 X 7.9 Right Ovary: 1.7 X 1.3 X 1.9 Left Ovary: 2.9 X 1.6 X 2.2 Post CDS / Adnexa: WNL Presence of free fluid: NO Presence of corpus luteal cyst: NOT SEEN Presence of subchorionic bleed: NO GESTATION / SURVEY CRL: 2.8 CM (9 weeks/4 days) Yolk Sac (normal less than 6mm): NOT SEEN Heart Rate: 169 bpm Rhythm: Normal IUP: Viable IUP Date of LMP: 06/03/2016 Beta HcG (if available): UNAVAILABLE IMPRESSION: SINGLE VIABLE IUP 9WKS 4 DAYS WITH CHASE OF 03/09/2017
== END | disposition home or self-care (01) ==
LOC: RADUSWWP 08:15
PROVIDERS: ATTEND Obstetrics & Gynecology
DX: Z36 Encounter for antenatal screening of mother (principal); Z3A.09 9 weeks gestation of pregnancy
CPT/HCPCS: 76801

== ENCOUNTER → 2016-08-30 | Outpatient (CLI) | payer MEDICAID ==
[2016-08-30 14:13] LABS: CH 30.5; CHCM 34.2; HCT 36.2 % (34.0-46.0); HDW 2.37; HGB 12.2 gm/dL (11.4-16.0); MCH 30.3 pg (25.0-35.0); MCHC 33.8 g/dL (31.0-37.0); MCV 89.6 fL (80.0-100.0); Mean Platelet Volume 6.6; RBC 4.04 m/uL (3.80-5.40); WBC 13.7 k/uL (3.8-10.6)
[2016-08-30 14:38] LABS: Glucose 85 mg/dL (74-99); Non-African American GFR(MDRD) >60 (>60 ml/min/1.73 sqM)
[2016-08-30 15:09] LABS: Hepatitis B Surface Ag Index 0.04
[2016-08-30 19:15] LABS: Treponemal Ab Non-Reactive (Non-Reactive)
== END | disposition home or self-care (01) ==
LOC: LABWHC1 13:49
PROVIDERS: ATTEND Obstetrics & Gynecology
DX: Z34.01 Encounter for supervision of normal first pregnancy, first trimester (principal)
CPT/HCPCS: 36415; 82565; 82947; 85027; 86762; 86780; 86850; 86900; 86901; 87340; 87390

== ENCOUNTER → 2016-09-28 | Outpatient (CLI) | payer MEDICAID ==
--- NOTE | 2016-09-29 10:55 | ECHOF ---
Referral Reason:195.1 ORTHOSTATIC HYPOTENSION MEASUREMENTS -------- HEIGHT: 154.9 cm WEIGHT: 67.1 kg BP: IVSd: 0.9 cm (0.6 - 1.1) LVIDd: 4.4 cm (3.9 - 5.3) LVPWd: 1.0 cm (0.6 - 1.1) IVSs: 1.4 cm LVIDs: 2.4 cm LVPWs: 1.4 cm Ao Diam: 2.3 cm (2.0 - 3.7) AV Cusp: 1.9 cm (1.5 - 2.6) LA Diam: 2.7 cm (2.7 - 3.8) MV EXCURSION: 6.204 mm (> 18.000) MV EF SLOPE: 113 mm/s (70 - 150) EPSS: 0.7 cm MV E King: 1.14 m/s MV DecT: 280 ms MV A King: 0.73 m/s MV E/A Ratio: 1.57 RAP: 5.00 mmHg RVSP: 14.50 mmHg FINDINGS -------- Sinus rhythm. This was a technically good study. Left ventricular wall thickness is normal. Overall left ventricular systolic function is normal with, an EF between 55 - 60 %. The right ventricle is normal in size and function. The left atrium is normal in size. The right atrium is normal in size. The aortic valve is trileaflet, and appears structurally normal. No aortic stenosis or regurgitation. There is trace mitral regurgitation. Trace tricuspid regurgitation present. The right ventricular systolic pressure, as measured by Doppler, is 14.50mmHg. Pulmonic valve appears structurally normal. The aortic root size is normal. The pericardium is normal. CONCLUSIONS -------- 1. Sinus rhythm. 2. Trace tricuspid regurgitation present. 3. The right ventricular systolic pressure, as measured by Doppler, is 14.50mmHg. 4. Pulmonic valve appears structurally normal. 5. The aortic root size is normal. 6. The pericardium is normal. 7. This was a technically good study. 8. Left ventricular wall thickness is normal. 9. Overall left ventricular systolic function is normal with, an EF between 55 - 60 %. 10. The right ventricle is normal in size and function. 11. The left atrium is normal in size. 12. The right atrium is normal in size. 13. The aortic valve is trileaflet, and appears structurally normal. No aortic stenosis or regurgitation. 14. There is trace mitral regurgitation. SLATE ROOFER: Janice Palafox RDCS
== END | disposition home or self-care (01) ==
LOC: RADECHMAIN 15:03
PROVIDERS: ATTEND Internal Medicine
DX: I08.1 Rheumatic disorders of both mitral and tricuspid valves (principal)
CPT/HCPCS: 93306

== ENCOUNTER → 2016-10-12 | Outpatient (CLI) | payer MEDICAID ==
--- NOTE | 2016-10-12 11:50 | US ---
EXAMINATION TYPE: US OB anatomy transabd DATE OF EXAM: 10/12/2016 COMPARISON: US HISTORY: Large for Dates excessive O36.62X0 TECHNIQUE: EXAM MEASUREMENTS: GESTATIONAL AGE / DATING Physician Established: (18 weeks/6 days) EDC: 03/09/2017 Dates by LMP: (18 weeks/5 days) EDC: 03/10/2017 Dates by First Scan: (18 weeks/5 days) EDC: 03/10/2017 Dates by Current Scan for: (19 weeks/3 days) EDC: 03/05/2017 SURVEY IUP: Single PLACENTA: Fundal PREVIA: No previa AIRAM: 15.5 cm Normal CERVICAL LENGTH (transabdominal: norm > 3.0cm): 4.5 cm BIOMETRY PRESENTATION: Breech BPD: 4.5 cm 19 weeks / 5 days HC: 16.6 cm 19 weeks / 3 days AC: 13.8 cm 19 weeks / 2 days FL: 2.9 cm 19 weeks / 5 days ESTIMATED WEIGHT IN GRAMS: 275 grams ESTIMATED WEIGHT IN LBS/OZS: 0 lbs. 10 oz. WEIGHT PERCENTAGE BASED ON ESTABLISHED DATE: 61 % HC/AC: 1.2 Normal FL/AC: 21% Normal HEART RATE: 160 bpm RHYTHM: Normal ANATOMY SEEN (within normal limits): * Lateral Vent (< 1 cm) 0.7 cm * Cisterna Magna (< 1.1 cm) 0.4 cm * Nuchal Fold (< 0.6 cm) 0.2 cm * Cerebellum (varies with age) 1.9 cm Choroid Plexus (bilateral) Midline Falx Cavus Septi Pellucidi Four Chamber Heart Outflow tracts: LVOT/RVOT Stomach Situs Nose / Lips Diaphragm Kidneys (bilateral) Bladder Cord Insert Three Vessel Cord Longitudinal Spine Transverse Spine Arms (bilateral) Legs (bilateral) IMPRESSION: Single live intrauterine with a current sonographic age of 19 weeks and 3 days and estimate d date of delivery of 03/05/2017, concordant with the menstrual age. Weight based on percentage is 61% . Growth is according to dates. AIRAM is within normal limits.
== END | disposition home or self-care (01) ==
LOC: RADUSWWP 09:40
PROVIDERS: ATTEND Obstetrics & Gynecology
DX: O36.62X0 Maternal care for excessive fetal growth, second trimester, not applicable or unspecified (principal); Z3A.19 19 weeks gestation of pregnancy
CPT/HCPCS: 76811

== ENCOUNTER → 2016-11-22 | Outpatient (CLI) | payer MEDICAID ==
--- NOTE | 2016-11-22 17:16 | XR ---
EXAMINATION TYPE: XR KUB DATE OF EXAM: 11/22/2016 COMPARISON: 06/06/2016 HISTORY: Abdominal pain. Kidney stones. TECHNIQUE: 2 views FINDINGS: There is no sign of intestinal obstruction or pneumoperitoneum. There is a fetus identified with breech presentation. Spine is on the left side. Fecal pattern is normal. I see no definite path ologic calcifications over the kidneys. There is no sign of a mass. IMPRESSION: No definite renal calculus identified. Breech presentation of the single fetus. Nonacute abdomen.
--- NOTE | 2016-11-22 18:34 | US ---
EXAMINATION TYPE: US kidneys/renal and bladder DATE OF EXAM: 11/22/2016 COMPARISON: KUB CLINICAL HISTORY: N20.0 CALCULUS OF KIDNEY. Bilateral renal stones and UTI per patient who is 25 week s ; prior US recently at [facility]; right renal stone = 0.8cm and left renal stone = 0.7cm per patient; patient c/o bilateral flank pain with left > right flank pain. EXAM MEASUREMENTS: Right Kidney: 10.5 x 6.0 x 5.4 cm Left Kidney: 9.7 x 4.2 x 4.9 cm Post Void Residual Volume: 18.2 mL Right Kidney: mild hydronephrosis noted post void; mid pole hyperechoic focus = 0.4 x 0.4 x 0.3cm and upper pole hyperechoic shadowing focus = 0.4 x 0.4 x 0.3cm Left Kidney: mid pole shadowing focus = 0.4 x 0.7 x 0.2cm Bladder: wnl Bilateral Jets seen: Yes Normal Post Void Residual: Yes IMPRESSION: There is evidence of bilateral renal calculi. No evidence of a solid renal mass. There is mild right- sided hydronephrosis. There are bilateral ureteral jets and I do not suspect renal obstruction.
== END ==
LOC: RADUSWWP 16:18
PROVIDERS: ATTEND Urology
DX: N13.2 Hydronephrosis with renal and ureteral calculous obstruction (principal)
CPT/HCPCS: 74000; 76770

== ENCOUNTER → 2016-12-26 | Outpatient (CLI) | payer MEDICAID ==
[2016-12-26 12:08] LABS: Glucose 3 Hour, Gest 63 mg/dL
== END | disposition home or self-care (01) ==
LOC: LABWHC1 08:02
PROVIDERS: ATTEND Obstetrics & Gynecology
DX: O24.419 Gestational diabetes mellitus in pregnancy, unspecified control (principal); Z3A.00 Weeks of gestation of pregnancy not specified
CPT/HCPCS: 36415; 82951; 82952

== ENCOUNTER 2017-01-19 18:39 | Outpatient (CLI) | payer OTHER ==
--- NOTE | 2017-03-27 06:39 | P.MSEPDOC ---
Presenting Problems - Arrival Data Date of Arrival on Unit: 01/19/17 Time of Arrival on Unit: 18:53 Mode of Transport: Wheelchair Medical History - Information : 1 Para: 0 Term: 0 : 0 Abortions: Spontaneous or Elective: 0 Number of Living Children: 0 - Gestational Age Gestational Age by CHASE (wks/days): 33 Weeks and 0 Days Disposition - Disposition Discharge Date: 01/19/17 Discharge Time: 19:13 I agree with the RN Medical Screening Exam: No Risk & Benefit of care provided described in d/c instruction: No Diagnosis: RELATED CONDITIONS, UNSP, UNSPECIFIED TRIMESTER ( Insufficient informatiion is provided to me to complete this form.)
== END 2017-01-19 19:19 | disposition home or self-care (01) ==
LOC: FBPOP 18:39
PROVIDERS: ATTEND Obstetrics & Gynecology
DX: O26.893 Other specified pregnancy related conditions, third trimester (principal); Z3A.33 33 weeks gestation of pregnancy
CPT/HCPCS: 59025; G0463; 99213

== ENCOUNTER → 2017-02-28 | Outpatient (CLI) | payer OTHER ==
[2017-02-28 21:20] VITALS: BP 137/82; PULSE 96; RESP 16; TEMP 97.8
--- NOTE | 2017-02-28 23:18 | P.MSEPDOC ---
Presenting Problems - Arrival Data Date of Arrival on Unit: 02/28/17 Time of Arrival on Unit: 20:30 Mode of Transport: Wheelchair - Complaint OB-Reason for Admission/Chief Complaint: Observation/Evaluation Comment: cramping and lower back pain 08/22 Medical History - Information : 1 Para: 0 Term: 0 : 0 Abortions: Spontaneous or Elective: 0 Number of Living Children: 0 - Gestational Age Gestational Age by CHASE (wks/days): 38 Weeks and 5 Days - History Complications: No Care Review of Systems - Review of Systems Constitutional: No problems Breast: No problems ENT: No problems Cardiovascular: No problems Respiratory: No problems Gastrointestinal: No problems Genitourinary: No problems Musculoskeletal: No problems Neurological: No problems Skin: No problems Vital Signs - Temperature Temperature: 97.8 F Temperature Source: Temporal Artery Scan - Pulse Right Brachial Pulse Rate: 96 Pulse Assessment Method: Automatic Cuff - Respirations Respiratory Rate: 16 Oxygen Delivery Method: Room Air O2 Sat by Pulse Oximetry: 100 - Blood Pressure Right Arm Blood Pressure: 137/82 Blood Pressure Mean: 100 Blood Pressure Source: Automatic Cuff Medical Screen Scoring (Pre) - Cervical Exam Dilation: 1-3 cm = 1 Effacement: More than 50% = 2 Membranes: Intact - Uterine Contractions Frequency: N/A - Maternal Vital Signs Maternal Temperature: N/A - Pain Assessment Pain Location and Character: Sacrum Pain Scale Used: Numeric (1 - 10) Pain Intensity: 7 Pain Management Goal: 2 Pain Description: *Acute, Aching Pain Radiation Location: no Pain Frequency: Frequent Pain Duration: 1 Pain Duration Units: Days Pain Behavior: Vocalization - Maternal Trauma Maternal Trauma: N/A - Assessment Baseline FHR: 135 Heart Rate - NICHD Category: Category I (Normal) = 0 NST: Reactive Position: N/A Station: N/A - Total Score Total Score (Pre): 3 - Level of Risk Level of Risk: Low (0-5) Physician Notification (Pre) - Physician Notified Physician Notified Date: 02/28/17 Physician Notified Time: 20:40 Spoke WithSudheer villarreal Physician Notification (Post) - Physician Notified Physician Notified Date: 02/28/17 Physician Notified Time: 21:48 Spoke WithSudheer villarreal New Order Received: Yes - Notification Comment Comment: d/c home, no change, follow up as scheduled Disposition - Disposition OB Disposition: Discharge to home, Written follow up instructions reviewed Discharge Date: 02/28/17 Discharge Time: 21:50 I agree with the RN Medical Screening Exam: Yes Risk & Benefit of care provided described in d/c instruction: Yes Diagnosis: FALSE LABOR AT OR AFTER 37 COMPLETED WEEKS OF GESTATION
== END | disposition home or self-care (01) ==
LOC: FBPOP 20:30
PROVIDERS: ATTEND Obstetrics & Gynecology
DX: O47.1 False labor at or after 37 completed weeks of gestation (principal); Z3A.38 38 weeks gestation of pregnancy
CPT/HCPCS: 59025; G0463; 99213

== ENCOUNTER 2017-03-03 06:03 | Inpatient (IN) | payer OTHER ==
[2017-03-03] MEDS ORDERED: CARBOPROST TROMETHAMINE 250 MCG/ML 1 ML AMP IM PRN (06:17)
[2017-03-03] MEDS ORDERED: OXYTOCIN 10 UNIT/ML 1 ML VIAL IM PRN (06:17)
[2017-03-03] MEDS ORDERED: METHYLERGONOVINE 0.2 MG/ML 1 ML AMP IM PRN (06:17)
[2017-03-03] MEDS ORDERED: TERBUTALINE 1 MG/ML VIAL SQ PRN (06:17)
[2017-03-03] MEDS ORDERED: LIDOCAINE 1% (PF) 10 MG/ML (30 ML SDV) SQ PRN (06:17)
[2017-03-03] MEDS ORDERED: OXYTOCIN 20 UNITS/1000 ML NS 1,000 ML IV SCH ×2 (06:30→16:45)
[2017-03-03] MEDS: LACTATED RINGERS 1,000 ML IV SCH ×3 (06:44→14:55)
[2017-03-03 06:48] LABS: Basophils % (A) 0 %; Eosinophils # (A) 0.2 k/uL (0-0.7); Eosinophils % (A) 2 %; HCT 35.5 % (34.0-46.0); HGB 11.4 gm/dL (11.4-16.0); Lymphocytes # (A) 2.2 k/uL (1.0-4.8); Lymphocytes % (A) 23 %; MCH 27.8 pg (25.0-35.0); MCV 86.7 fL (80.0-100.0); Mean Platelet Volume 7.5; Monocytes # (A) 0.6 k/uL (0-1.0); Monocytes % (A) 7 %; Neutrophils # (A) 6.3 k/uL (1.3-7.7); Neutrophils % (A) 67 %; Platelet Count 362 k/uL (150-450); RBC 4.09 m/uL (3.80-5.40); RDW 14.8 % (11.5-15.5); WBC 9.5 k/uL (3.8-10.6)
--- NOTE | 2017-03-03 07:37 | P.HPOB ---
History of Present Illness H&P Date: 03/03/17 Chief Complaint: Induction of labor 21-year-old presents at 39 weeks for induction of labor. Her cervix is 1- 2 cm dilated, 70% effaced, -2 station. She is michelle irregularly. heart tones are 130-135 with moderate variability and reactive. Review of Systems All systems: negative Constitutional: Denies chills, Denies fever Eyes: denies blurred vision, denies pain Ears, nose, mouth and throat: Denies headache, Denies sore throat Cardiovascular: Denies chest pain, Denies shortness of breath Respiratory: Denies cough Gastrointestinal: Denies abdominal pain, Denies diarrhea, Denies nausea, Denies vomiting Genitourinary: Denies dysuria, Denies hematuria Musculoskeletal: Denies myalgias Integumentary: Denies pruritus, Denies rash Neurological: Denies numbness, Denies weakness Psychiatric: Denies anxiety, Denies depression Endocrine: Denies fatigue, Denies weight change Past Medical History Additional Past Medical History / Comment(s): posteral orthostatic tachycardia( POTS). Obstetric history: She's had care with hi since 8 weeks gestation. Blood type is O+, antibodies negative, rubella immune, treponema antibody negative, HIV nonreactive, hepatitis B negative. She did have some kidney stones during her and used a few Tylenol 3 during her second trimester. She's been on Inderal during her third trimester for her POTS which became quite symptomatic then. GBS negative History of Any Multi-Drug Resistant Organisms: None Reported Past Surgical History: Orthopedic Surgery Past Anesthesia/Blood Transfusion Reactions: No Reported Reaction Past Psychological History: No Psychological Hx Reported Smoking Status: Never smoker Past Alcohol Use History: None Reported Past Drug Use History: None Reported Medications and Allergies Home Medications Medication Instructions Recorded Confirmed Type Albuterol Sulfate [Proair Hfa] 2 puff INHALATION RT-Q6H PRN 01/19/17 03/03/17 History Calcium Carbonate [Tums] 2 tab PO DAILY PRN 01/19/17 03/03/17 History Propranolol [Inderal] 1 tab PO ONCE 02/28/17 03/03/17 History Allergies Allergy/AdvReac Type Severity Reaction Status Date / Time Iodinated Contrast- Oral and Allergy Anaphylaxis Verified 02/28/17 20:39 IV Dye [Iodinated Contrast Media - Oral and] Exam Osteopathic Statement: *. No significant issues noted on an osteopathic structural exam other than those noted in the History and Physical/Consult. - Vital Signs Vital signs: Intake and Output 03/02/17 03/03/17 03/03/17 22:59 06:59 14:59 Other: Weight 74.843 kg Heart: Regular rate and rhythm Lungs: Clear to auscultation bilaterally Abdomen: Soft, nontender Extremities: Negative Homans sign Results Result Diagrams: 03/03/17 06:40 Assessment and Plan (1) Normal labor Current Visit: Yes Status: Acute Code(s): O80 - ENCOUNTER FOR FULL-TERM UNCOMPLICATED DELIVERY; Z37.9 - OUTCOME OF DELIVERY, UNSPECIFIED SNOMED Code(s ): 54241224 (2) POTS (postural orthostatic tachycardia syndrome) Current Visit: Yes Status: Acute Code(s): R00.0 - TACHYCARDIA, UNSPECIFIED; I95.1 - ORTHOSTATIC HYPOTENSION SNOMED Code(s): 809497388 Plan: 1. Induction of labor with amniotomy and Pitocin 2. Anticipate normal vaginal delivery
[2017-03-03 07:51] VITALS: BMI 31.1
[2017-03-03] MEDS ORDERED: BUTORPHANOL 1 MG/ML 1 ML VIAL IV PRN (09:07)
[2017-03-03] MEDS ORDERED: BUPIVACAINE (PF) 0.25% 30 ML VIAL ONE (10:15)
[2017-03-03] MEDS ORDERED: SODIUM CHLORIDE 0.9% 100 ML BAG ONE (10:15)
[2017-03-03] MEDS ORDERED: fentaNYL (PF) 50 MCG/ML 5 ML AMP ONE (10:15)
[2017-03-03] MEDS ORDERED: HYDROCORTISONE 2.5% RECTAL CREAM 30 GM TUBE RECTAL PRN (16:40)
[2017-03-03] MEDS ORDERED: diphenhydrAMINE 50 MG CAP PO PRN (16:40)
[2017-03-03] MEDS ORDERED: WITCH HAZEL 1 EACH MED..PAD TOPICAL PRN (16:40)
[2017-03-03] MEDS ORDERED: SIMETHICONE 80 MG CHEWABLE PO PRN (16:40)
[2017-03-03] MEDS ORDERED: LANOLIN CREAM 5 GM TUBE TOPICAL PRN (16:40)
[2017-03-03] MEDS ORDERED: ZOLPIDEM 5 MG TAB PO PRN (16:40)
[2017-03-03] MEDS ORDERED: diphenhydrAMINE 25 MG CAP PO PRN (16:40)
[2017-03-03] MEDS ORDERED: diphenhydrAMINE 50 MG/ML 1 ML VIAL IVP PRN ×2 (16:40)
[2017-03-03] MEDS ORDERED: BENZOCAINE/MENTHOL SPRAY 1 GM/SPRAY AEROSOL TOPICAL PRN (16:40)
[2017-03-03] MEDS ORDERED: HYDROcodone/APAP 5-325MG 1 EACH TAB PO PRN (16:41)
[2017-03-03] MEDS: ACETAMINOPHEN TAB 325 MG TAB PO PRN (16:47)
--- NOTE | 2017-03-03 16:48 | P.PROBDLV ---
Vaginal Delivery Note - . Vaginal Delivery Note: 21-year-old presented at 39 weeks and 1 day for induction of labor. Her cervix was 2 cm dilated, 70% effaced, -2 station. She is michelle irregularly. heart tones 135-140 with moderate variability and reactive. Amniotomy was performed at 7:09 AM and clear fluid noted. Pitocin was also started. She progressed throughout the day and did get an epidural for pain management. Her cervix was completely dilated at 1601. She pushed, delivered a viable male over intact perineum under epidural anesthesia at 1620. Head delivered OA, anterior shoulder delivered gentle downward traction followed by posterior shoulder and rest of body. Nose and mouth bulb suctioned cord clamped and cut infant placed on mother's abdomen. Apgars 8, 8, weight 6 lbs. 10 oz. Placenta delivered spontaneously, intact with three-vessel cord at 1624. Vagina, cervix, perineum were inspected. No lacerations noted. Estimated blood loss 150 mL. Mother and baby in stable condition.
[2017-03-03] MEDS: SENNOSIDES-DOCUSATE SODIUM 1 EACH TAB PO SCH (21:28)
[2017-03-03] MEDS: IBUPROFEN 600 MG TAB PO PRN (21:28)
[2017-03-03] MEDS ORDERED: PROPRANOLOL 10 MG TAB PO SCH (22:00)
[2017-03-04] MEDS: IBUPROFEN 600 MG TAB PO PRN ×2 (03:40→11:53)
[2017-03-04] MEDS: SENNOSIDES-DOCUSATE SODIUM 1 EACH TAB PO SCH (08:29)
[2017-03-04] MEDS: ACETAMINOPHEN TAB 325 MG TAB PO PRN (08:29)
[2017-03-04 09:11] VITALS: RESP 18
--- NOTE | 2017-03-04 09:28 | P.DS ---
Providers Date of admission: 03/03/17 06:03 Expected date of discharge: 03/04/17 Attending physician: Ashlyn Carvajal Primary care physician: Stated None - Discharge Diagnosis(es) (1) Normal labor Current Visit: Yes Status: Resolved (2) POTS (postural orthostatic tachycardia syndrome) Current Visit: Yes Status: Acute (3) Status post normal vaginal delivery Current Visit: Yes Status: Acute Hospital Course: Patient presented for induction of labor. She underwent a normal vaginal delivery. Her course was uncomplicated. She denies nausea, vomiting , chest pain, shortness of breath or calf pain. She is voiding and ambulating without difficulty. She'll be discharged home day #1 in stable condition to follow-up with me in 6 weeks. Plan - Discharge Summary New Discharge Prescriptions: New Ibuprofen [Motrin] 600 mg PO Q6HR PRN #30 tab PRN Reason: Mild Pain Or Fever >= 100.5 No Action Calcium Carbonate [Tums] 2 tab PO DAILY PRN PRN Reason: Heartburn Albuterol Sulfate [Proair Hfa] 2 puff INHALATION RT-Q6H PRN PRN Reason: Shortness Of Breath Propranolol [Inderal] 1 tab PO ONCE Discharge Medication List Albuterol Sulfate [Proair Hfa] 2 puff INHALATION RT-Q6H PRN 01/19/17 [History] Calcium Carbonate [Tums] 2 tab PO DAILY PRN 01/19/17 [History] Propranolol [Inderal] 1 tab PO ONCE 02/28/17 [History] Ibuprofen [Motrin] 600 mg PO Q6HR PRN #30 tab 03/04/17 [Rx] Follow up Appointment(s)/Referral(s): Ashlny Carvajal DO [Doctor of Osteopathic Medicine] - 6 Weeks
[2017-03-04 17:19] VITALS: BP 131/65; PULSE 88; TEMP 97.4
== END 2017-03-04 17:22 | disposition home or self-care (01) | DRG 774 ==
LOC: 4FBP 06:03
PROVIDERS: ADMIT Obstetrics & Gynecology; ATTEND Obstetrics & Gynecology
PROC: 10907ZC Drainage of Amniotic Fluid, Therapeutic from Products of Conception, Via Natural or Artificial Opening (ICD-10-PCS; principal; 2017-03-03)
PROC: 10E0XZZ Delivery of Products of Conception, External Approach (ICD-10-PCS; 2017-03-03)
PROC: 00HU33Z Insertion of Infusion Device into Spinal Canal, Percutaneous Approach (ICD-10-PCS; 2017-03-03)
PROC: 3E0R3NZ Introduction of Analgesics, Hypnotics, Sedatives into Spinal Canal, Percutaneous Approach (ICD-10-PCS; 2017-03-03)
DX: O99.42 Diseases of the circulatory system complicating childbirth (principal); I49.8 Other specified cardiac arrhythmias; Z37.0 Single live birth; Z3A.39 39 weeks gestation of pregnancy; Z91.041 Radiographic dye allergy status; Z79.899 Other long term (current) drug therapy; Z87.442 Personal history of urinary calculi
CPT/HCPCS: 85025; 88307

== ENCOUNTER 2017-09-19 02:06 | Emergency (ER) | payer MEDICAID, OTHER ==
[2017-09-19 02:19] VITALS: TEMP 97.9
[2017-09-19] MEDS ORDERED: SODIUM CHLORIDE 0.9% 1,000 ML IV STA (02:43)
[2017-09-19] MEDS ORDERED: ONDANSETRON 4 MG/2 ML VIAL IVP STA (02:43)
[2017-09-19] MEDS ORDERED: KETOROLAC 30 MG/ML 1 ML VIAL IVP STA (02:43)
--- NOTE | 2017-09-19 02:47 | ED ---
Abdominal Pain HPI - General Source: patient, RN notes reviewed Mode of arrival: ambulatory Limitations: no limitations <Desiree Flores - Last Filed: 09/19/17 03:51> <Pilo Ballard - Last Filed: 09/19/17 04:26> - General Chief Complaint: Abdominal Pain Stated Complaint: ABD PAIN Time Seen by Provider: 09/19/17 02:33 - History of Present Illness Initial Comments: This is a 22-year-old female who presents to the emergency department with chief complaint of abdominal pain. Patient states that she woke up out of a sleep an hour ago. She states that she had sudden onset severe right lower quadrant abdominal pain that radiates to her back. Patient describes the pain as sharp and stabbing. She states that the pain is constant. She also reports nausea. Denies vomiting or diarrhea. Denies fevers or chills. Denies any previous abdominal surgeries. Patient states that she is not . Patient reports a history of kidney stones. She states that she was diagnosed with kidney stones when she was . She states that they were going to do stents but she refused. (Desiree Flores) - Related Data Home Medications Medication Instructions Recorded Confirmed Albuterol Sulfate [Proair Hfa] 2 puff INHALATION RT-Q6H PRN 01/19/17 03/03/17 Calcium Carbonate [Tums] 2 tab PO DAILY PRN 01/19/17 03/03/17 Propranolol [Inderal] 1 tab PO ONCE 02/28/17 03/03/17 Previous Rx's Medication Instructions Recorded Ibuprofen [Motrin] 600 mg PO Q6HR PRN #30 tab 03/04/17 HYDROcodone/APAP 5-325MG [[place] 5] 1 each PO Q6HR PRN #10 tab 09/19/17 Tamsulosin [Flomax] 0.4 mg PO DAILY #7 cap 09/19/17 Allergies Allergy/AdvReac Type Severity Reaction Status Date / Time Iodinated Contrast- Oral and Allergy Anaphylaxis Verified 09/19/17 02:18 IV Dye [Iodinated Contrast Media - Oral and] Review of Systems ROS Other: All systems not noted in ROS Statement are negative. <Desiree Flores - Last Filed: 09/19/17 03:51> ROS Other: All systems not noted in ROS Statement are negative. <Pilo Ballard - Last Filed: 09/19/17 04:26> ROS Statement: Those systems with pertinent positive or pertinent negative responses have been documented in the HPI. Past Medical History Additional Past Medical History / Comment(s): postural orthostatic tachycaria syndrome. History of Any Multi-Drug Resistant Organisms: None Reported Past Surgical History: Orthopedic Surgery Past Anesthesia/Blood Transfusion Reactions: No Reported Reaction Past Psychological History: No Psychological Hx Reported Smoking Status: Never smoker Past Alcohol Use History: None Reported Past Drug Use History: None Reported - Past Family History Mother Family Medical History: Cancer, Hypertension <Desiree Flores - Last Filed: 09/19/17 03:51> General Exam Limitations: no limitations <Desiree Flores - Last Filed: 09/19/17 03:51> <Pilo Ballard - Last Filed: 09/19/17 04:26> - General Exam Comments Initial Comments: General: Awake and alert, well-developed; in distress due to pain. Patient is anxious and writhing in pain. HEENT: Head atraumatic, normocephalic. Pupils are equal, round and reactive to light. Extraocular movements intact. Oropharynx moist without erythema or exudate. Neck: Supple. Normal ROM. Cardiovascular: Regular rate and rhythm. No murmurs, rubs or gallops. Chest symmetrical. Respiratory: Lungs clear to auscultation bilaterally. No wheezes, rales or rhonchi. Normal respiratory effort with no use of accessory muscles. Abdomen: Soft, non-tender, non-distended. No rigidity, rebound or guarding. Normal bowel sounds in all 4 quadrants. Musculoskeletal: Normal ROM, no tenderness bilateral upper and lower extremities. Ambulating normally. Skin: [place], warm and dry without rashes or lesions. Neurological: Alert and oriented x3. CN II-XII grossly intact. Speech is fluent and answers are appropriate. No focal neuro deficits. Psychiatric: Normal mood and affect. No overt signs of depression or anxiety noted. (Desiree Flores) Vital Signs 09/19/17 02:16 Temperature 97.9 F Pulse Rate 100 Respiratory 24 Rate Blood Pressure 141/94 O2 Sat by Pulse 97 Oximetry Medical Decision Making - Lab Data Result diagrams: 09/19/17 03:01 09/19/17 03:01 - Radiology Data Radiology results: report reviewed, image reviewed <Desiree Flores - Last Filed: 09/19/17 03:51> - Lab Data Result diagrams: 09/19/17 03:01 09/19/17 03:01 <Pilo Ballard - Last Filed: 09/19/17 04:26> - Medical Decision Making This is a 22-year-old female who presents to the emergency department with chief complaint of right lower quadrant abdominal pain with radiation to her back. Patient does appear anxious and is writhing in pain. Onset of pain was sudden. Patient reports a history of kidney stones. Upon review of patient's previous studies, an ultrasound of the kidneys and bladder that was performed November 2016 revealed bilateral renal calculi. Patient was provided with fluid bolus and pain medication. CBC and CMP were unremarkable. UA did reveal large blood and >182 red blood cells. Patient states she is currently not on her period. X-ray KUB revealed clearing of calcification of the right kidney compared to last exam. Patient is likely passing a kidney stone. Patient will be provided with pain medication and Flomax. Recommended following up with urology if no improvement in her symptoms. Vital signs have been stable and patient is in no acute distress. No signs of infectious stone. Patient will be discharged home at this time. She is in agreement with plan and voices understanding. All questions were answered. (Desiree Flores) I saw this patient in conjunction with the physician education administrative assistant. I performed independent history and physical exam. Agree with case management. (Pilo Ballard) - Lab Data Lab Results 09/19/17 09/19/17 09/19/17 Range/Units 03:01 03:01 03:01 WBC 8.7 (3.8-10.6) k/uL RBC 4.81 (3.80-5.40) m/uL Hgb 13.1 (11.4-16.0) gm/dL Hct 39.8 (34.0-46.0) % MCV 82.8 (80.0-100.0) fL MCH 27.3 (25.0-35.0) pg MCHC 33.0 (31.0-37.0) g/dL RDW 12.9 (11.5-15.5) % Plt Count 356 (150-450) k/uL Neutrophils % 50 % Lymphocytes % 34 % Monocytes % 7 % Eosinophils % 7 % Basophils % 0 % Neutrophils # 4.3 (1.3-7.7) k/uL Lymphocytes # 2.9 (1.0-4.8) k/uL Monocytes # 0.6 (0-1.0) k/uL Eosinophils # 0.6 (0-0.7) k/uL Basophils # 0.0 (0-0.2) k/uL Sodium 140 (137-145) mmol/L Potassium 4.0 (3.5-5.1) mmol/L Chloride 107 (98-107) mmol/L Carbon Dioxide 23 (22-30) mmol/L Anion Gap 10 mmol/L BUN 9 (7-17) mg/dL Creatinine 0.61 (0.52-1.04) mg/dL Est GFR (CKD-EPI)AfAm >90 (>60 ml/min/1.73 sqM) Est GFR (CKD-EPI)NonAf >90 (>60 ml/min/1.73 sqM) Glucose 104 H (74-99) mg/dL Calcium 9.5 (8.4-10.2) mg/dL Total Bilirubin 0.6 (0.2-1.3) mg/dL AST 27 (14-36) U/L ALT 32 (9-52) U/L Alkaline Phosphatase 78 (38-126) U/L Total Protein 7.0 (6.3-8.2) g/dL Albumin 4.5 (3.5-5.0) g/dL Amylase 54 (30-110) U/L Lipase 39 (23-300) U/L Urine Color Urine Appearance (Clear) Urine pH (5.0-8.0) Ur Specific [place] (1.001-1.035) Urine Protein (Negative) Urine Glucose (UA) (Negative) Urine Ketones (Negative) Urine Blood (Negative) Urine Nitrite (Negative) Urine Bilirubin (Negative) Urine Urobilinogen (<2.0) mg/dL Ur Leukocyte Esterase (Negative) Urine RBC (0-5) /hpf Urine WBC (0-5) /hpf Ur Squamous Epith Cells (0-4) /hpf Urine HCG, Qual Not Detected (Not Detectd) 09/19/17 Range/Units 03:01 WBC (3.8-10.6) k/uL RBC (3.80-5.40) m/uL Hgb (11.4-16.0) gm/dL Hct (34.0-46.0) % MCV (80.0-100.0) fL MCH (25.0-35.0) pg MCHC (31.0-37.0) g/dL RDW (11.5-15.5) % Plt Count (150-450) k/uL Neutrophils % % Lymphocytes % % Monocytes % % Eosinophils % % Basophils % % Neutrophils # (1.3-7.7) k/uL Lymphocytes # (1.0-4.8) k/uL Monocytes # (0-1.0) k/uL Eosinophils # (0-0.7) k/uL Basophils # (0-0.2) k/uL Sodium (137-145) mmol/L Potassium (3.5-5.1) mmol/L Chloride (98-107) mmol/L Carbon Dioxide (22-30) mmol/L Anion Gap mmol/L BUN (7-17) mg/dL Creatinine (0.52-1.04) mg/dL Est GFR (CKD-EPI)AfAm (>60 ml/min/1.73 sqM) Est GFR (CKD-EPI)NonAf (>60 ml/min/1.73 sqM) Glucose (74-99) mg/dL Calcium (8.4-10.2) mg/dL Total Bilirubin (0.2-1.3) mg/dL AST (14-36) U/L ALT (9-52) U/L Alkaline Phosphatase (38-126) U/L Total Protein (6.3-8.2) g/dL Albumin (3.5-5.0) g/dL Amylase (30-110) U/L Lipase (23-300) U/L Urine Color Light Red Urine Appearance Cloudy H (Clear) Urine pH 5.5 (5.0-8.0) Ur Specific [place] 1.016 (1.001-1.035) Urine Protein 1+ H (Negative) Urine Glucose (UA) Negative (Negative) Urine Ketones Negative (Negative) Urine Blood Large H (Negative) Urine Nitrite Negative (Negative) Urine Bilirubin Negative (Negative) Urine Urobilinogen <2.0 (<2.0) mg/dL Ur Leukocyte Esterase Trace H (Negative) Urine RBC >182 H (0-5) /hpf Urine WBC 22 H (0-5) /hpf Ur Squamous Epith Cells 9 H (0-4) /hpf Urine HCG, Qual (Not Detectd) - Radiology Data X-ray KUB impression: Nonacute abdomen. There is clearing of calcification of the right kidney compared to old exam. (Desiree Flores) Disposition Is patient prescribed a controlled substance at d/c from ED?: Yes When asked, does pt state using other controlled substances?: No If prescribed controlled substance>3 days was MAPS reviewed?: Prescribed <3 Days Time of Disposition: 04:06 <Desiree Flores - Last Filed: 09/19/17 03:51> <Pilo Ballard - Last Filed: 09/19/17 04:26> Clinical Impression: Ureterolithiasis Disposition: HOME SELF-CARE Condition: Good Instructions: Ureteral Stones (ED) Additional Instructions: Please follow-up with Dr. Almazan, urology if no improvement in symptoms within the next couple of days. Please take medications as prescribed. Please follow up with primary care provider within 1-2 days. Return to emergency department if symptoms should worsen or any concerns arise. Prescriptions: HYDROcodone/APAP 5-325MG [[place] 5] 1 each PO Q6HR PRN #10 tab PRN Reason: Pain Tamsulosin [Flomax] 0.4 mg PO DAILY #7 cap Referrals: Teja Engle MD [Primary Care Provider] - 1-2 days Slade Almazan MD [STAFF PHYSICIAN] - 1-2 days
[2017-09-19 03:10] LABS: Basophils % (A) 0 %; Eosinophils # (A) 0.6 k/uL (0-0.7); Eosinophils % (A) 7 %; HCT 39.8 % (34.0-46.0); HGB 13.1 gm/dL (11.4-16.0); Lymphocytes # (A) 2.9 k/uL (1.0-4.8); Lymphocytes % (A) 34 %; MCH 27.3 pg (25.0-35.0); MCV 82.8 fL (80.0-100.0); Mean Platelet Volume 6.4; Monocytes # (A) 0.6 k/uL (0-1.0); Monocytes % (A) 7 %; Neutrophils # (A) 4.3 k/uL (1.3-7.7); Neutrophils % (A) 50 %; Platelet Count 356 k/uL (150-450); RBC 4.81 m/uL (3.80-5.40); RDW 12.9 % (11.5-15.5); WBC 8.7 k/uL (3.8-10.6)
[2017-09-19 03:22] LABS: Appearance,Urine Cloudy (Clear); Bilirubin,Urine Negative (Negative); Blood,Urine Large (Negative); Color,Urine Light Red; Glucose,Urine (UA) Negative (Negative); Ketones,Urine Negative (Negative); Leukocyte Esterase,Urine Trace (Negative); Nitrite,Urine Negative (Negative); PH, Urine 5.5 (5.0-8.0); Protein,Urine 1+ (Negative); RBC,Urine >182 /hpf (0-5); Specific Gravity,Urine 1.016 (1.001-1.035); Squamous Epithelial Cell,Urine 9 /hpf (0-4); Urobilinogen,Urine <2.0 mg/dL (<2.0); WBC,Urine 22 /hpf (0-5)
[2017-09-19 03:30] LABS: ALT 32 U/L (9-52); AST 27 U/L (14-36); Albumin 4.5 g/dL (3.5-5.0); Alkaline Phosphatase 78 U/L (38-126); Amylase 54 U/L (30-110); Anion Gap 10 mmol/L; Blood Urea Nitrogen 9 mg/dL (7-17); Calcium 9.5 mg/dL (8.4-10.2); Carbon Dioxide 23 mmol/L (22-30); Chloride 107 mmol/L (98-107); Glucose 104 mg/dL (74-99); Lipase 39 U/L (23-300); Sodium 140 mmol/L (137-145); Total Bilirubin 0.6 mg/dL (0.2-1.3)
--- NOTE | 2017-09-19 03:33 | XR ---
EXAMINATION TYPE: XR KUB DATE OF EXAM: 09/19/2017 COMPARISON: 11/22/2016 HISTORY: Abdominal pain TECHNIQUE: 2 upright views FINDINGS: There is no sign of intestinal obstruction or pneumoperitoneum. Fecal pattern is normal. Marybel ng bases are clear. There are no pathologic calcifications over the kidneys. IMPRESSION: Nonacute abdomen. There is clearing of calcification over the right kidney compared to ol d exam.
[2017-09-19] MEDS ORDERED: MORPHINE SULFATE 4 MG/ML SYRINGE IV STA (03:41)
[2017-09-19 04:48] VITALS: BP 128/80; PULSE 75; RESP 20
== END 2017-09-19 04:50 | disposition home or self-care (01) ==
LOC: EC 02:06
DX: N20.1 Calculus of ureter (principal); Z87.442 Personal history of urinary calculi; Z79.899 Other long term (current) drug therapy; Z91.041 Radiographic dye allergy status
CPT/HCPCS: 36415; 80053; 82150; 83690; 85025; 81001; 81025; 74018; 99284; 96374; 96375 ×2; 96361; J2270; J2405; J1885

== ENCOUNTER 2017-09-21 17:29 | Emergency (ER) | payer OTHER ==
[2017-09-21] MEDS ORDERED: ACETAMINOPHEN TAB 500 MG TAB PO STA (19:09)
[2017-09-21 19:37] LABS: Basophils % (A) 0 %; Eosinophils # (A) 0.1 k/uL (0-0.7); Eosinophils % (A) 1 %; HCT 39.1 % (34.0-46.0); Lymphocytes % (A) 10 %; MCH 27.5 pg (25.0-35.0); MCHC 33.4 g/dL (31.0-37.0); MCV 82.5 fL (80.0-100.0); Mean Platelet Volume 6.5; Monocytes # (A) 0.7 k/uL (0-1.0); Monocytes % (A) 7 %; Neutrophils # (A) 8.7 k/uL (1.3-7.7); Neutrophils % (A) 83 %; Platelet Count 308 k/uL (150-450); RBC 4.74 m/uL (3.80-5.40); RDW 12.5 % (11.5-15.5); WBC 10.6 k/uL (3.8-10.6)
[2017-09-21 19:38] LABS: Appearance,Urine Clear (Clear); Bilirubin,Urine Negative (Negative); Blood,Urine Negative (Negative); Color,Urine Yellow; Glucose,Urine (UA) Negative (Negative); Ketones,Urine 1+ (Negative); Leukocyte Esterase,Urine Negative (Negative); Nitrite,Urine Negative (Negative); Protein,Urine Negative (Negative); Urobilinogen,Urine <2.0 mg/dL (<2.0)
[2017-09-21 19:45] LABS: INR 1.1 (<1.2); Partial Thromboplastin Time 24.7 sec (22.0-30.0); Prothrombin Time 10.9 sec (9.0-12.0)
[2017-09-21 19:47] LABS: ALT 35 U/L (9-52); AST 27 U/L (14-36); Albumin 4.9 g/dL (3.5-5.0); Alkaline Phosphatase 80 U/L (38-126); Anion Gap 13 mmol/L; Blood Urea Nitrogen 8 mg/dL (7-17); Calcium 9.8 mg/dL (8.4-10.2); Carbon Dioxide 21 mmol/L (22-30); Chloride 101 mmol/L (98-107); Glucose 104 mg/dL (74-99); Potassium 4.6 mmol/L (3.5-5.1); Sodium 135 mmol/L (137-145); Total Bilirubin 1.3 mg/dL (0.2-1.3); Total Protein 7.9 g/dL (6.3-8.2)
[2017-09-21] MEDS ORDERED: SODIUM CHLORIDE 0.9% 1,000 ML IV ONE (20:19)
[2017-09-21] MEDS ORDERED: KETOROLAC 30 MG/ML 1 ML VIAL IVP STA (20:19)
--- NOTE | 2017-09-21 21:11 | ED ---
Female Urogenital HPI - General Chief complaint: Urogenital Stated complaint: abd pain,fever Time Seen by Provider: 09/21/17 20:01 Source: patient Mode of arrival: ambulatory Limitations: no limitations - History of Present Illness Initial comments: 22-year-old female patient presents to the emergency department today for evaluation of fever and right flank pain. Patient was seen and evaluated here on Monday diagnosed with a kidney stone on the right side. She describes the pain as sharp, severe, and located to the right flank and right sided abdomen. Patient was discharged home to follow-up with the urologist. States that she cannot get into the urologist until the middle of October. States that her pain is worsening, she's been having dry heaves, and she developed a fever of 102.1F today. Patient states that she is having some dysuria. Denies any hematuria at this point. Patient does have a history of kidney stones one time in the past when she was . Patient denies any recent rash, shortness breath, chest pain, diarrhea, constipation, back pain, numbness, tingling, dizziness, weakness, headache, visual changes, or any other complaints. Last Menstrual Period: 08/31/17 - Related Data Home Medications Medication Instructions Recorded Confirmed Albuterol Sulfate [Proair Hfa] 2 puff INHALATION RT-Q6H PRN 01/19/17 09/21/17 Calcium Carbonate [Tums] 2 tab PO DAILY PRN 01/19/17 09/21/17 Acetaminophen-Codeine 300-30mg 1 tab PO Q6H PRN 09/21/17 09/21/17 [Tylenol w/codeine #3] HYDROcodone/APAP 5-325MG [[place] 5] 1 tab PO Q6HR PRN 09/21/17 09/21/17 Ondansetron [Zofran ODT] 4 mg PO Q8HR 09/21/17 09/21/17 Sertraline [Zoloft] 50 mg PO DAILY 09/21/17 09/21/17 Previous Rx's Medication Instructions Recorded Tamsulosin [Flomax] 0.4 mg PO DAILY #7 cap 09/19/17 Allergies Allergy/AdvReac Type Severity Reaction Status Date / Time Iodinated Contrast- Oral and Allergy Anaphylaxis Verified 09/21/17 20:02 IV Dye [Iodinated Contrast Media - Oral and] Review of Systems ROS Statement: Those systems with pertinent positive or pertinent negative responses have been documented in the HPI. ROS Other: All systems not noted in ROS Statement are negative. Past Medical History Additional Past Medical History / Comment(s): postural orthostatic tachycaria syndrome, kidney stone History of Any Multi-Drug Resistant Organisms: None Reported Past Surgical History: Orthopedic Surgery Past Anesthesia/Blood Transfusion Reactions: No Reported Reaction Past Psychological History: Anxiety Smoking Status: Never smoker Past Alcohol Use History: None Reported Past Drug Use History: None Reported - Past Family History Mother Family Medical History: Cancer, Hypertension General Exam Limitations: no limitations General appearance: alert, in no apparent distress, other (This is a well- developed, well-nourished adult female patient in no acute distress. Vital signs upon presentation are temperature 99.6F, pulse 122, respirations 20, blood pressure 128/80, pulse ox 98% on room air.) Eye exam: Present: normal appearance, PERRL, EOMI. Absent: scleral icterus, conjunctival injection, periorbital swelling ENT exam: Present: normal exam, normal oropharynx, mucous membranes moist Respiratory exam: Present: normal lung sounds bilaterally. Absent: respiratory distress, wheezes, rales, rhonchi, stridor Cardiovascular Exam: Present: regular rate, normal rhythm, normal heart sounds. Absent: systolic murmur, diastolic murmur, rubs, gallop, clicks GI/Abdominal exam: Present: soft, normal bowel sounds. Absent: distended, tenderness, guarding, rebound, rigid Back exam: Present: normal inspection, CVA tenderness (R). Absent: CVA tenderness (L) Neurological exam: Present: alert, oriented X3, CN II-XII intact Psychiatric exam: Present: normal affect, normal mood Skin exam: Present: warm, dry, intact, normal color. Absent: rash Course Vital Signs 09/21/17 09/21/17 09/21/17 19:00 21:29 22:49 Temperature 99.6 F 98.1 F Pulse Rate 122 H 87 87 Respiratory 20 18 17 Rate Blood Pressure 128/80 119/57 124/57 O2 Sat by Pulse 98 97 99 Oximetry Medical Decision Making - Medical Decision Making 22-year-old female patient presents the emergency department today for evaluation of right flank pain, nausea, and fever. Physical examination did reveal some right flank tenderness. Labs reviewed and showed no evidence for infection any urine. CT abdomen and pelvis without contrast was obtained to evaluate for stone and did show right-sided hydronephrosis and hydroureter without evidence of stone, this correlates with recently passed stone. Patient does have a large left ovarian cyst approximate 47 L, she is having no symptoms on the left side. Did discuss findings and results with the patient. She is also experiencing upper respiratory symptoms and her fever could relate to viral illness. She'll be discharged home to follow-up with urology as she has planned. She'll be given a starter pack for 24 hours worth of medication for pain. Return parameters were discussed in detail. She verbalizes understanding and agrees with this plan. - Lab Data Result diagrams: 09/21/17 19:18 09/21/17 19:18 Lab Results 09/21/17 09/21/17 09/21/17 Range/Units 19:18 19:18 19:18 WBC 10.6 (3.8-10.6) k/uL RBC 4.74 (3.80-5.40) m/uL Hgb 13.0 (11.4-16.0) gm/dL Hct 39.1 (34.0-46.0) % MCV 82.5 (80.0-100.0) fL MCH 27.5 (25.0-35.0) pg MCHC 33.4 (31.0-37.0) g/dL RDW 12.5 (11.5-15.5) % Plt Count 308 (150-450) k/uL Neutrophils % 83 % Lymphocytes % 10 % Monocytes % 7 % Eosinophils % 1 % Basophils % 0 % Neutrophils # 8.7 H (1.3-7.7) k/uL Lymphocytes # 1.0 (1.0-4.8) k/uL Monocytes # 0.7 (0-1.0) k/uL Eosinophils # 0.1 (0-0.7) k/uL Basophils # 0.0 (0-0.2) k/uL PT (9.0-12.0) sec INR (<1.2) APTT (22.0-30.0) sec Sodium 135 L (137-145) mmol/L Potassium 4.6 (3.5-5.1) mmol/L Chloride 101 (98-107) mmol/L Carbon Dioxide 21 L (22-30) mmol/L Anion Gap 13 mmol/L BUN 8 (7-17) mg/dL Creatinine 0.60 (0.52-1.04) mg/dL Est GFR (CKD-EPI)AfAm >90 (>60 ml/min/1.73 sqM) Est GFR (CKD-EPI)NonAf >90 (>60 ml/min/1.73 sqM) Glucose 104 H (74-99) mg/dL Plasma Lactic Acid James 0.6 L (0.7-2.0) mmol/L Calcium 9.8 (8.4-10.2) mg/dL Total Bilirubin 1.3 (0.2-1.3) mg/dL AST 27 (14-36) U/L ALT 35 (9-52) U/L Alkaline Phosphatase 80 (38-126) U/L Total Protein 7.9 (6.3-8.2) g/dL Albumin 4.9 (3.5-5.0) g/dL Urine Color Urine Appearance (Clear) Urine pH (5.0-8.0) Ur Specific [place] (1.001-1.035) Urine Protein (Negative) Urine Glucose (UA) (Negative) Urine Ketones (Negative) Urine Blood (Negative) Urine Nitrite (Negative) Urine Bilirubin (Negative) Urine Urobilinogen (<2.0) mg/dL Ur Leukocyte Esterase (Negative) Urine HCG, Qual (Not Detectd) 09/21/17 09/21/17 09/21/17 Range/Units 19:18 19:18 19:18 WBC (3.8-10.6) k/uL RBC (3.80-5.40) m/uL Hgb (11.4-16.0) gm/dL Hct (34.0-46.0) % MCV (80.0-100.0) fL MCH (25.0-35.0) pg MCHC (31.0-37.0) g/dL RDW (11.5-15.5) % Plt Count (150-450) k/uL Neutrophils % % Lymphocytes % % Monocytes % % Eosinophils % % Basophils % % Neutrophils # (1.3-7.7) k/uL Lymphocytes # (1.0-4.8) k/uL Monocytes # (0-1.0) k/uL Eosinophils # (0-0.7) k/uL Basophils # (0-0.2) k/uL PT 10.9 (9.0-12.0) sec INR 1.1 (<1.2) APTT 24.7 (22.0-30.0) sec Sodium (137-145) mmol/L Potassium (3.5-5.1) mmol/L Chloride (98-107) mmol/L Carbon Dioxide (22-30) mmol/L Anion Gap mmol/L BUN (7-17) mg/dL Creatinine (0.52-1.04) mg/dL Est GFR (CKD-EPI)AfAm (>60 ml/min/1.73 sqM) Est GFR (CKD-EPI)NonAf (>60 ml/min/1.73 sqM) Glucose (74-99) mg/dL Plasma Lactic Acid James (0.7-2.0) mmol/L Calcium (8.4-10.2) mg/dL Total Bilirubin (0.2-1.3) mg/dL AST (14-36) U/L ALT (9-52) U/L Alkaline Phosphatase (38-126) U/L Total Protein (6.3-8.2) g/dL Albumin (3.5-5.0) g/dL Urine Color Yellow Urine Appearance Clear (Clear) Urine pH 8.0 (5.0-8.0) Ur Specific [place] 1.010 (1.001-1.035) Urine Protein Negative (Negative) Urine Glucose (UA) Negative (Negative) Urine Ketones 1+ H (Negative) Urine Blood Negative (Negative) Urine Nitrite Negative (Negative) Urine Bilirubin Negative (Negative) Urine Urobilinogen <2.0 (<2.0) mg/dL Ur Leukocyte Esterase Negative (Negative) Urine HCG, Qual Not Detected (Not Detectd) - Radiology Data Radiology results: report reviewed, image reviewed Two-view x-ray of the chest is obtained. Heart mediastinum are normal. Lungs are clear. Diaphragm is normal. Bony thorax appears normal. Impression by Dr. Downs shows normal chest with no change. CT abdomen and pelvis without contrast was obtained. Report reviewed in its entirety. Impression by Dr. Downs shows tiny left renal calculi. Right- sided hydronephrosis and hydroureter. This could relate to recently passed stone. No right-sided ureteral calculus identified. Large left ovarian cyst. Abdomen ALLERGIES appeared new compared to old computed tomography scan. Disposition Clinical Impression: Hydronephrosis, right, Hydroureter, right Disposition: HOME SELF-CARE Condition: Good Instructions: Kidney Stones (ED), Hydronephrosis (ED) Additional Instructions: Increase fluids. Continue taking medications as directed. Follow-up with urologist as you have planned. Return here immediately for any new, worsening, or concerning symptoms. Is patient prescribed a controlled substance at d/c from ED?: No Referrals: Teja Engle MD [Primary Care Provider] - 1-2 days Wilber Martin MD [STAFF PHYSICIAN] - 1-2 days Time of Disposition: 22:31
--- NOTE | 2017-09-21 21:24 | CT ---
EXAMINATION TYPE: CT abdomen pelvis wo con DATE OF EXAM: 09/21/2017 COMPARISON: 02/18/2010 HISTORY: rt flank pain. hx kid stones CT DLP: 827 mGycm Automated exposure control for dose reduction was used. TECHNIQUE: Helical acquisition of images was performed from the lung bases through the pelvis. FINDINGS: Lung bases are clear. There is no pleural effusion. Heart size is normal. There is no pericardial eff usion. Liver spleen pancreas gallbladder appear normal. Bile ducts are not dilated. There is no adren al mass. Kidneys have normal size. There are small 1 to 2 mm calculi in the left kidney. The right ki dney shows mild hydronephrosis and hydroureter. I see no ureteral calculus. There is a 4 cm cyst on t he left ovary. Uterus is anteverted. Bladder distends smoothly. There is no free fluid in the pelvis. Appendix is not definitely seen. There is no sign of appendicitis. The bony structures appear intact . IMPRESSION: TINY LEFT RENAL CALCULI. RIGHT-SIDED HYDRONEPHROSIS AND HYDROURETER. THIS COULD RELATE TO RECENTLY PA SSED STONE. NO RIGHT-SIDED URETERAL CALCULUS IDENTIFIED. LARGE LEFT OVARIAN CYST. ABNORMALITIES APPEA R NEW COMPARED TO OLD CT SCAN.
--- NOTE | 2017-09-21 21:25 | XR ---
EXAMINATION TYPE: XR chest 2V DATE OF EXAM: 09/21/2017 COMPARISON: 08/25/2012 HISTORY: Chest pain TECHNIQUE: Frontal and lateral views of the chest are obtained. FINDINGS: Heart and mediastinum are normal. Lungs are clear. Diaphragm is normal. Bony thorax appear s normal. IMPRESSION: Normal chest. No change.
[2017-09-21] MEDS ORDERED: MORPHINE SULFATE 4 MG/ML SYRINGE IVP STA (21:27)
[2017-09-21] MEDS ORDERED: ONDANSETRON 4 MG/2 ML VIAL IVP STA (21:27)
[2017-09-21 21:30] VITALS: PULSE 87
[2017-09-21] MEDS ORDERED: ACET/COD 300 MG/30 MG STARTER PACK 6 TAB BTL PO STA (22:31)
[2017-09-21 22:50] VITALS: BP 124/57; RESP 17; TEMP 98.1
== END 2017-09-21 22:58 | disposition home or self-care (01) ==
LOC: EC 17:29
DX: N13.30 Unspecified hydronephrosis (principal); N13.4 Hydroureter; N83.202 Unspecified ovarian cyst, left side; F41.9 Anxiety disorder, unspecified; Z79.899 Other long term (current) drug therapy; Z87.442 Personal history of urinary calculi; Z91.041 Radiographic dye allergy status
CPT/HCPCS: 36415; 80053; 83605; 85025; 85610; 85730; 81003; 81025; 87040; 87086; 71046; 74176; 99284; 96374; 96375 ×2; 96361; J2270; J2405; J1885

== ENCOUNTER → 2017-11-09 | Outpatient (CLI) | payer OTHER ==
--- NOTE | 2017-11-10 07:56 | US ---
EXAMINATION TYPE: US pelvic complete DATE OF EXAM: 11/09/2017 COMPARISON: NONE CLINICAL HISTORY: R10.2 pelvic pain, N83.0 Follicular cyst of ovary. Per patient, CT showed left ovar joy cyst TECHNIQUE: Transabdominal (TA). Date of LMP: 11/02/2017, EXAM MEASUREMENTS: Uterus: 9.2 x 5.1 x 2.8 cm Endometrial Stripe: 0.4 cm Right Ovary: 3.5 x 1.7 x 1.3 cm Left Ovary: 3.7 x 2.1 x 1.8 cm 1. Uterus: Anteverted wnl 2. Endometrium: wnl 3. Right Ovary: wnl 4. Left Ovary: Cyst measuring- 1.8 x 1.4 x 1.3 cm 5. Bilateral Adnexa: wnl 6. Posterior cul-de-sac: no free fluid IMPRESSION: 1. Left ovarian cyst. Consider follow-up exam following the next normal menstrual period.
== END | disposition home or self-care (01) ==
LOC: RADUSMAIN 16:10
PROVIDERS: ATTEND Obstetrics & Gynecology
DX: N83.202 Unspecified ovarian cyst, left side (principal)
CPT/HCPCS: 76856

== ENCOUNTER → 2018-10-23 | Outpatient (CLI) | payer MEDICAID, OTHER ==
[~2018-10-23] MED LIST: TUBERCULIN PPD (SKIN TEST) 5 UNIT/0.1 ML (MDV) VIAL INTRADERMA ONE
== END | disposition home or self-care (01) ==
LOC: PEDOP 17:03
PROVIDERS: ATTEND Family Medicine
DX: Z11.1 Encounter for screening for respiratory tuberculosis (principal)

== ENCOUNTER → 2018-11-22 | Outpatient (CLI) | payer MEDICAID ==
[2018-11-22 15:57] LABS: HCT 39.4 % (34.0-46.0); HGB 12.2 gm/dL (11.4-16.0); MCH 27.3 pg (25.0-35.0); MCHC 30.8 g/dL (31.0-37.0); MCV 88.5 fL (80.0-100.0); Mean Platelet Volume 6.3; Platelet Count 347 k/uL (150-450); RBC 4.46 m/uL (3.80-5.40); WBC 12.9 k/uL (3.8-10.6)
[2018-11-22 16:06] LABS: African American GFR (CKD) >90 (>60 ml/min/1.73 sqM); Glucose 87 mg/dL (74-99)
[2018-11-23 00:16] LABS: HIV 1 AB Non-Reactive (Non-Reactive); HIV 2 AB Non-Reactive (Non-Reactive); HIV AB P24 Non-Reactive (Non-Reactive); HIV P24 AG Non-Reactive (Non-Reactive)
[2018-11-23 00:45] LABS: Hepatitis B Surface Antigen Non-Reactive (Non-Reactive)
--- NOTE | 2018-11-23 08:12 | US ---
EXAMINATION TYPE: Transabdominal DATE OF EXAM: 11/22/2018 4:12 PM COMPARISON: NONE CLINICAL HISTORY: Z36 CONFIRM DATES. EXAM PERFORMED: Transvaginal (TV) and Transabdominal (TA) better visualization fetus EXAM MEASUREMENTS: GESTATIONAL AGE / DATING Physician Established: Not yet established Dates by LMP: (7 weeks/4 days) EDC: 07/07/2019 Dates by First Scan: NA Dates by Current Scan for: (7 weeks/4 days) EDC: 07/07/2019 MATERNAL ANATOMY Uterus: 12.2 x5.2 x 6.1 cm Right Ovary: 1.8 x 1.4 x1.5cm Left Ovary: 1.7 x1.6 x 1.4 cm Post CDS / Adnexa: wnl Presence of free fluid: no Presence of corpus luteal cyst: no Presence of subchorionic bleed/implantation bleed: small posterior hypoechoic area 1.1 x 1.0 x 0.3 cm. On few images a second possible implantation bleed measuring 0.7 cm is questioned. GESTATION / SURVEY CRL: 1.3cm (7 weeks/4 days) MSD: 0.4 cm (7 weeks/3 days) Yolk Sac (normal less than 6mm): 4mm Heart Rate: 153 bpm Rhythm: Normal IUP: Live IUP Date of LMP: 09/30/2018 Beta HcG (if available): NA IMPRESSION: Single live intrauterine with a sonographic age of 7 days and 4 weeks and estim ated date of delivery of 07/07/2019, concordant with menstrual age. Implantation bleed measuring 1.1 c m is noted, less than 25% the gestational sac diameter. On few images a second blank dictation bleed measuring 0.7 cm is questioned.
== END | disposition home or self-care (01) ==
LOC: RADUSWWP 15:11
PROVIDERS: ATTEND Obstetrics & Gynecology
DX: Z36.89 Encounter for other specified antenatal screening (principal); Z34.81 Encounter for supervision of other normal pregnancy, first trimester; Z3A.01 Less than 8 weeks gestation of pregnancy
CPT/HCPCS: 76801; 82565; 82947; 85027; 86762; 86780; 86850; 86900; 86901; 87340; 87390

== ENCOUNTER 2018-12-17 18:14 | Outpatient (CLI) | payer MEDICAID ==
[2018-12-17] MEDS ORDERED: ONDANSETRON 4 MG/2 ML VIAL IVP STA (18:26)
[2018-12-17] MEDS ORDERED: LACTATED RINGERS 1,000 ML IV SCH (18:30)
[2018-12-17 18:52] LABS: Appearance,Urine Clear (Clear); Bilirubin,Urine Negative (Negative); Blood,Urine Small (Negative); Color,Urine Yellow; Glucose,Urine (UA) Negative (Negative); Ketones,Urine Negative (Negative); Leukocyte Esterase,Urine Negative (Negative); Mucus,Urine Rare /hpf; Nitrite,Urine Negative (Negative); Protein,Urine Trace (Negative); RBC,Urine 28 /hpf (0-5); Specific Gravity,Urine 1.025 (1.001-1.035); Squamous Epithelial Cell,Urine 4 /hpf (0-4); Urobilinogen,Urine <2.0 mg/dL (<2.0); WBC,Urine 1 /hpf (0-5)
[2018-12-17 19:57] VITALS: BP 116/80; PULSE 87; RESP 16; TEMP 97.2
--- NOTE | 2018-12-17 21:14 | US ---
EXAMINATION TYPE: US renals and bladder DATE OF EXAM: 12/17/2018 COMPARISON: CT October 01, 2017 CLINICAL HISTORY: hematuria. R/O stones per order. Back pain and hematuria per patient. Hx of kidney stones. Patient is 11 weeks . EXAM MEASUREMENTS: Right Kidney: 11.1 x 6.1 x 4.2 cm Left Kidney: 11.3 x 6.2 x 5.7 cm Right Kidney: Hypoechoic area seen upper pole measurin.1 x 1.[address] correlate. Left Kidney: Hyperechoic area seen without shadowing measurin.7 x 0.6 x 0.6 cm. Bladder: appears anechoic Bilateral Jets seen: No IMPRESSION: Probable small nonobstructing left renal calculi correlate with smaller calculi seen on [address]
--- NOTE | 2019-01-01 08:25 | P.MSEPDOC ---
Presenting Problems - Arrival Data Date of Arrival on Unit: 12/17/18 Time of Arrival on Unit: 18:14 Mode of Transport: Portable - Complaint OB-Reason for Admission/Chief Complaint: Hyperemesis Comment: s/s kidney stones, malaise Medical History - Information : 2 Para: 1 Term: 1 : 0 Abortions: Spontaneous or Elective: 0 Number of Living Children: 1 - Gestational Age Gestational Age by CHASE (wks/days): 11 Weeks and 1 Days - History Complications: Other Comment: Hx kidney stones Review of Systems - Review of Systems Constitutional: No problems Breast: No problems ENT: No problems Cardiovascular: No problems Respiratory: No problems Gastrointestinal: No problems Genitourinary: No problems Musculoskeletal: No problems Neurological: No problems Skin: No problems Comment: pt states felt s/s kidney stones last week, thinks she may have passed one Vital Signs - Temperature Temperature: 97.2 F Temperature Source: Temporal Artery Scan - Pulse Right Pulse Rate: 87 Pulse Assessment Method: Automatic Cuff - Respirations Respiratory Rate: 16 Oxygen Delivery Method: Room Air - Blood Pressure Right Arm Sitting Blood Pressure: 116/80 Blood Pressure Mean: 92 Blood Pressure Source: Automatic Cuff Medical Screen Scoring (Pre) - Cervical Exam Dilation: Exam Deferred Effacement: Exam Deferred Membranes: Intact - Uterine Contractions Frequency: N/A Duration: N/A Intensity: N/A - Maternal Vital Signs Maternal Temperature: N/A Maternal Blood Pressure: N/A Signs of Preeclampsia: N/A Maternal Respirations: N/A - Maternal Trauma Maternal Trauma: N/A - Total Score - Baby A Total Score - Baby A: 0 - Total Score - Baby B Total Score - Baby B: 0 - Total Score - Baby C Total Score - Baby C: 0 - Level of Risk - Baby A Level of Risk - Baby A: Low (0-5) - Level of Risk - Baby B Level of Risk - Baby B: Low (0-5) - Level of Risk - Baby C Level of Risk - Baby C: Low (0-5) Medical Screen Scoring (Post) - Cervical Exam Dilation: Exam Deferred - Uterine Contractions Frequency: N/A Duration: N/A Intensity: N/A - Maternal Vital Signs Maternal Temperature: N/A Maternal Respirations: N/A - Maternal Trauma Maternal Trauma: N/A - Total Score Total Score - Baby A: 0 Total Score - Baby B: 0 Total Score - Baby C: 0 - Post Treatment Level of Risk Post Treatment Level of Risk - Baby A: Low (0-5) Post Treatment Level of Risk - Baby B: Low (0-5) Post Treatment Level of Risk - Baby C: Low (0-5) Physician Notification (Post) - Physician Notified Physician Notified Date: 12/17/18 Physician Notified Time: 19:39 Spoke With: Eder Mosqueda Order Received: Yes (ultrasound of bilateral kidneys r/o stones, may be discharged with instruct) - Notification Comment Comment: ultrasound shows probable stone right kidney consistent with ct in 2018. Pt instructed to follow up with Wei on Mon, monitor temps and s/s inf ection until then. Disposition - Disposition OB Disposition: Discharge to home, Written follow up instructions reviewed Discharge Date: 12/17/18 Discharge Time: 21:00 I agree with the RN Medical Screening Exam: Yes Risk & Benefit of care provided described in d/c instruction: Yes Diagnosis: HYPEREMESIS GRAVIDARUM WITH METABOLIC DISTURBANCE
== END 2018-12-17 21:00 | disposition home or self-care (01) ==
LOC: FBPOP 18:14
PROVIDERS: ATTEND Obstetrics & Gynecology
DX: O21.1 Hyperemesis gravidarum with metabolic disturbance (principal); Z3A.11 11 weeks gestation of pregnancy
CPT/HCPCS: 99214; 96361; 96374; 81001; 76770; J2405

== ENCOUNTER → 2019-01-03 | Outpatient (CLI) | payer MEDICAID ==
[2019-01-03 17:38] LABS: Appearance,Urine Clear (Clear); Bilirubin,Urine Negative (Negative); Blood,Urine Small (Negative); Color,Urine Yellow; Glucose,Urine (UA) Negative (Negative); Ketones,Urine Negative (Negative); Leukocyte Esterase,Urine Negative (Negative); Mucus,Urine Rare /hpf; Nitrite,Urine Negative (Negative); PH, Urine 5.5 (5.0-8.0); Protein,Urine Negative (Negative); RBC,Urine 15 /hpf (0-5); Specific Gravity,Urine 1.027 (1.001-1.035); Squamous Epithelial Cell,Urine 1 /hpf (0-4); Urobilinogen,Urine <2.0 mg/dL (<2.0); WBC,Urine <1 /hpf (0-5)
== END | disposition home or self-care (01) ==
LOC: LABWHC1 15:53
PROVIDERS: ATTEND Obstetrics & Gynecology
DX: O26.899 Other specified pregnancy related conditions, unspecified trimester (principal); R30.0 Dysuria
CPT/HCPCS: 81001; 87086

== ENCOUNTER → 2019-01-16 | Outpatient (CLI) | payer MEDICAID ==
[~2019-01-16] MED LIST changes: +LACTATED RINGERS 1,000 ML IV SCH; -TUBERCULIN PPD (SKIN TEST) 5 UNIT/0.1 ML (MDV) VIAL INTRADERMA ONE
[2019-01-16 19:52] VITALS: BP 114/73; PULSE 89; RESP 16; TEMP 98.2
== END ==
LOC: PROCWHC3 13:50
PROVIDERS: ATTEND Family Medicine
DX: E86.0 Dehydration (principal)
CPT/HCPCS: 96360

== ENCOUNTER → 2019-02-11 | Outpatient (CLI) | payer MEDICAID ==
--- NOTE | 2019-02-11 10:48 | US ---
EXAMINATION TYPE: US OB anatomy transabd DATE OF EXAM: 02/11/2019 COMPARISON: US 11/22/2018 HISTORY: O36.62X0 large for dates Anatomy TECHNIQUE: Transabdominal (TA) EXAM MEASUREMENTS: GESTATIONAL AGE / DATING Physician Established: (19 weeks/0 days) EDC: 07/08/2019 Dates by LMP: (19 weeks/0 days) EDC: 07/08/2019 Dates by First Scan: (19 weeks/1 days) EDC: 07/07/2019 Dates by Current Scan for: (19 weeks/2 days) EDC: 07/06/2019 SURVEY IUP: Single PLACENTA: Anterior PREVIA: Low Lying AIRAM: 15.1 cm Normal CERVICAL LENGTH (transabdominal: norm > 3.0cm): 3.5 cm BIOMETRY PRESENTATION: Vertex LIE: Transverse lie with head maternal Left BPD: 4.6 cm 20 weeks / 0 days HC: 16.5 cm 19 weeks / 2 days AC: 13.0 cm 18 weeks / 4 days FL: 3.0 cm 19 weeks / 2 days ESTIMATED WEIGHT IN GRAMS: 266 grams ESTIMATED WEIGHT IN LBS/OZ: 0 lbs. 9 oz. WEIGHT PERCENTAGE BASED ON ESTABLISHED DATE: 42 % HC/AC: 1.27 FL/AC: 23% HEART RATE: 150 bpm RHYTHM: Normal ANATOMY SEEN (within normal limits): * Lateral Vent (< 1 cm) 0.8 cm * Cisterna Magna (< 1.1 cm) 0.6 cm * Nuchal Fold (< 0.6 cm) 0.3 cm * Cerebellum (varies with age) 1.9 cm Choroid Plexus (bilateral) Midline Falx Cavus Septi Pellucidi Outflow tracts: LVOT Stomach Situs Nose / Lips Diaphragm Kidneys (bilateral) Bladder Cord Insert Three Vessel Cord Arms (bilateral) Legs (bilateral) ANATOMY NOT SEEN due to position: Four Chamber Heart RVOT Longitudinal Spine Transverse Spine Patient is scheduled for OB callback. Live IUP, measurements consistent with dates IMPRESSION: 1. Low-lying placenta with the placental tip located 3.1 cm from the internal cervical os. Continued follow-up is recommended. 2. Nonvisualization of limited anatomy as detailed above, the patient is scheduled for OB callback. 3. Single live intrauterine with a sonographic age of 19 weeks and 2 days and estimated sharlene e of delivery of 07/06/2019, concordant with menstrual age. Heart rate of 150 bpm.
== END | disposition home or self-care (01) ==
LOC: RADUSWWP 08:57
PROVIDERS: ATTEND Obstetrics & Gynecology
DX: O44.42 Low lying placenta NOS or without hemorrhage, second trimester (principal); Z3A.19 19 weeks gestation of pregnancy
CPT/HCPCS: 76811

== ENCOUNTER → 2019-02-25 | Outpatient (CLI) | payer BC, MEDICAID ==
--- NOTE | 2019-02-26 08:44 | US ---
EXAMINATION TYPE: US OB Call Back DATE OF EXAM: 02/25/2019 COMPARISON: 02/11/2019 CLINICAL HISTORY: O36.62X0 Large for Dates. GESTATIONAL AGE / DATING Dates by Initial Survey Scan: (21 weeks/0 days) EDC: 07/08/19 HEART RATE: 154 bpm RHYTHM: Normal ANATOMY SEEN (second anatomic survey look): Four Chamber Heart: Seen Outflow tracts:? RVOT Longitudinal Spine: Seen Transverse Spine: Seen Visualized anatomy appears within normal limits. IMPRESSION: The four-chamber heart, right ventricular outflow tract, longitudinal spine, and transverse spine are now seen on today's examination.
== END | disposition home or self-care (01) ==
LOC: RADUSWWP 16:15
PROVIDERS: ATTEND Obstetrics & Gynecology
DX: Z53.9 Procedure and treatment not carried out, unspecified reason (principal)

== ENCOUNTER → 2019-07-05 | Outpatient (CLI) | payer BC | END | disposition home or self-care (01) | LOC: LABWHC1 11:37 | PROVIDERS: ATTEND Obstetrics & Gynecology | DX: Z11.59 Encounter for screening for other viral diseases (principal) | CPT/HCPCS: 87635 ==

== ENCOUNTER 2019-07-06 22:15 | Outpatient (CLI) | payer BC ==
[2019-07-06 23:08] LABS: Appearance,Urine Cloudy (Clear); Bilirubin,Urine Negative (Negative); Blood,Urine Moderate (Negative); Calcium Oxalate Crystals,Urine Occasional /hpf; Color,Urine Yellow; Glucose,Urine (UA) Negative (Negative); Hyaline Casts,Urine 3 /lpf (0-2); Ketones,Urine Negative (Negative); Leukocyte Esterase,Urine Negative (Negative); Mucus,Urine Rare /hpf; Nitrite,Urine Negative (Negative); Protein,Urine Trace (Negative); RBC,Urine 118 /hpf (0-5); Specific Gravity,Urine 1.023 (1.001-1.035); Squamous Epithelial Cell,Urine 16 /hpf (0-4); Urobilinogen,Urine <2.0 mg/dL (<2.0); WBC,Urine 3 /hpf (0-5)
[2019-07-06 23:22] LABS: Protein/Creatinine Ratio,Urine 0.11
[2019-07-06 23:57] LABS: Basophils % (A) 0 %; Eosinophils # (A) 0.2 k/uL (0-0.7); Eosinophils % (A) 2 %; HCT 33.4 % (34.0-46.0); HGB 10.7 gm/dL (11.4-16.0); Lymphocytes # (A) 2.4 k/uL (1.0-4.8); Lymphocytes % (A) 22 %; MCH 27.7 pg (25.0-35.0); MCHC 32.1 g/dL (31.0-37.0); MCV 86.3 fL (80.0-100.0); Mean Platelet Volume 8.1; Monocytes # (A) 0.6 k/uL (0-1.0); Monocytes % (A) 5 %; Neutrophils # (A) 7.5 k/uL (1.3-7.7); Neutrophils % (A) 69 %; Platelet Count 329 k/uL (150-450); RBC 3.88 m/uL (3.80-5.40); RDW 14.1 % (11.5-15.5); WBC 10.8 k/uL (3.8-10.6)
[2019-07-07 00:08] LABS: ALT 13 U/L (4-34); AST 21 U/L (14-36); African American GFR (CKD) >90 (>60 ml/min/1.73 sqM); Blood Urea Nitrogen 12 mg/dL (7-17); LDH 350 U/L (313-618); Non-African American GFR(CKD) >90 (>60 ml/min/1.73 sqM); Uric Acid 6.1 mg/dL (3.7-7.4)
[2019-07-07 00:48] VITALS: BP 128/77; PULSE 93; RESP 16; TEMP 97
--- NOTE | 2019-07-07 06:42 | P.MSEPDOC ---
Presenting Problems - Arrival Data Date of Arrival on Unit: 07/06/19 Time of Arrival on Unit: 22:15 Mode of Transport: Ambulatory - Complaint OB-Reason for Admission/Chief Complaint: Elevated Blood Pressure Medical History - Information : 2 Para: 1 Term: 1 : 0 Abortions: Spontaneous or Elective: 0 Number of Living Children: 1 - Gestational Age Gestational Age by CHASE (wks/days): 39 Weeks and 6 Days Review of Systems - Review of Systems Constitutional: No problems Breast: No problems ENT: No problems Cardiovascular: No problems Respiratory: No problems Gastrointestinal: No problems Genitourinary: No problems Musculoskeletal: No problems Neurological: No problems Skin: No problems Vital Signs - Temperature Temperature: 97.0 F Temperature Source: Oral - Pulse Right Pulse Rate: 93 Pulse Assessment Method: Automatic Cuff - Respirations Respiratory Rate: 16 Oxygen Delivery Method: Room Air O2 Sat by Pulse Oximetry: 98 - Blood Pressure Right Arm Blood Pressure: 128/77 Blood Pressure Mean: 94 Blood Pressure Source: Automatic Cuff Medical Screen Scoring (Pre) - Cervical Exam Dilation: Exam Deferred Effacement: Exam Deferred Membranes: Intact - Uterine Contractions Frequency: N/A Duration: N/A Intensity: N/A - Maternal Vital Signs Maternal Temperature: N/A Maternal Blood Pressure: N/A Signs of Preeclampsia: N/A Maternal Respirations: N/A - Maternal Trauma Maternal Trauma: N/A - Assessment - Baby A Baseline FHR: 150 Heart Rate - NICHD Category: Category I (Normal) = 0 NST: Reactive Position: N/A Station: N/A - Total Score - Baby A Total Score - Baby A: 0 - Total Score - Baby B Total Score - Baby B: 0 - Total Score - Baby C Total Score - Baby C: 0 - Level of Risk - Baby A Level of Risk - Baby A: Low (0-5) - Level of Risk - Baby B Level of Risk - Baby B: Low (0-5) - Level of Risk - Baby C Level of Risk - Baby C: Low (0-5) Physician Notification (Pre) - Physician Notified Physician Notified Date: 07/06/19 Physician Notified Time: 22:41 New Order Received: Yes (Pt be discharged if preeclamptic labs normal) Disposition - Disposition OB Disposition: Discharge to home Discharge Date: 07/07/19 Discharge Time: 00:35 I agree with the RN Medical Screening Exam: Yes Risk & Benefit of care provided described in d/c instruction: Yes Diagnosis: LOW BACK PAIN (This patient is a pleasant 23-year-old 2 para 1 female 39-6/7 weeks gestation who was having some low back pain also an episode of nausea and felt that her blood pressure was mildly elevated 1 at home. Patient was instructed to come to labor and delivery for evaluation of preeclampsia. Blood pressures here are normal and preeclampsia labs are normal. heart tones are category 1. Patient's low back pain appears to be related to discomfort of . There is no evidence of preeclampsia or gestational hypertension. Patient was reassured and sent home to return had further concerns.)
== END 2019-07-07 00:35 | disposition home or self-care (01) ==
LOC: FBPOP 22:15
PROVIDERS: ATTEND Obstetrics & Gynecology
DX: O99.89 Other specified diseases and conditions complicating pregnancy, childbirth and the puerperium (principal); M54.5 Low back pain; Z3A.39 39 weeks gestation of pregnancy
CPT/HCPCS: 59025; 81001; 82565; 82570; 83615; 84156; 84450; 84460; 84520; 84550; 85025; 99215

== ENCOUNTER 2019-07-07 10:15 | Inpatient (IN) | payer BC ==
[2019-07-07] MEDS ORDERED: TERBUTALINE 1 MG/ML VIAL SQ PRN (10:29)
[2019-07-07] MEDS ORDERED: METHYLERGONOVINE 0.2 MG/ML 1 ML AMP IM PRN (10:29)
[2019-07-07] MEDS ORDERED: CARBOPROST TROMETHAMINE 250 MCG/ML 1 ML AMP IM PRN (10:29)
[2019-07-07] MEDS ORDERED: LIDOCAINE 0.5% (PF) 5 MG/ML (50 ML SDV) SQ PRN (10:29)
[2019-07-07] MEDS ORDERED: OXYTOCIN 10 UNIT/ML 1 ML VIAL IM PRN (10:29)
[2019-07-07] MEDS ORDERED: LACTATED RINGERS 1,000 ML IV SCH (10:30)
--- NOTE | 2019-07-07 10:35 | P.HPOB ---
History of Present Illness H&P Date: 07/07/19 Chief Complaint: Contractions. This patient is a servando 23-year-old 2 para 1 female estimated date of confinement 07/08/2019 estimated gestational age 39-6/7 weeks who presents to labor and delivery with complaints of regular painful contractions. Patient was here last evening with concerns for blood pressure elevation however blood pressures were normal and preeclampsia labs were negative. Patient began having contractions last evening and is now found to be 3 cm dilated in active labor. care is per Dr. Carvajal appears to be uncomplicated. Review of Systems Genitourinary: Reports Menstruation: Reports amenorrhea Past Medical History Past Medical History: Asthma Additional Past Medical History / Comment(s): postural orthostatic tachycaria syndrome, kidney stone History of Any Multi-Drug Resistant Organisms: None Reported Past Surgical History: Orthopedic Surgery Past Anesthesia/Blood Transfusion Reactions: No Reported Reaction Past Psychological History: Depression Smoking Status: Never smoker Past Alcohol Use History: None Reported Past Drug Use History: None Reported - Past Family History Mother Family Medical History: Cancer, Hypertension Medications and Allergies Home Medications Medication Instructions Recorded Confirmed Type Pnv No.95/Ferrous Fum/Folic AC 1 each PO DAILY 12/17/18 07/07/19 History [ Multivitamin Tablet] Allergies Allergy/AdvReac Type Severity Reaction Status Date / Time Iodinated Contrast Media Allergy Anaphylaxis Verified 07/07/19 10:24 [Iodinated Contrast Media - Oral and] Exam Intake and Output 07/06/19 07/07/19 07/07/19 22:59 06:59 14:59 Other: Weight 63.503 kg - OBG Physical Exam Abdomen: bowel sounds normal, no diffuse tenderness, no bruit present, no guarding noted, no hepatomegaly, no splenomegaly, no mass Vulva: both: normal Vagina: normal moisture, no discharge Cervix: no lesion (Cervix is 3 cm dilated per the RN.), no discharge Uterus: enlarged (Fundal height consistent with dates) Results blood work shows she is O positive, rubella immune, RPR is nonreactive, hepatitis B is negative, HIV is nonreactive, ultrasounds have been normal, group B strep was negative. Assessment and Plan Assessment: This is a servando 23-year-old 2 para 1 female 39-6/7 weeks' gestation in active labor. Plan is anticipate normal vaginal delivery. (1) 40 weeks gestation of Current Visit: Yes Status: Acute Code(s): Z3A.40 - 40 WEEKS GESTATION OF SNOMED Code(s): 92421192 (2) Normal labor Current Visit: No Status: Resolved Code(s): O80 - ENCOUNTER FOR FULL-TERM UNCOMPLICATED DELIVERY; Z37.9 - OUTCOME OF DELIVERY, UNSPECIFIED SNOMED Code(s): 57174191
[2019-07-07 11:11] LABS: Basophils % (A) 0 %; Eosinophils # (A) 0.3 k/uL (0-0.7); Eosinophils % (A) 2 %; HGB 11.8 gm/dL (11.4-16.0); Lymphocytes # (A) 1.9 k/uL (1.0-4.8); Lymphocytes % (A) 17 %; MCHC 32.8 g/dL (31.0-37.0); MCV 85.5 fL (80.0-100.0); Mean Platelet Volume 8.1; Monocytes # (A) 0.5 k/uL (0-1.0); Monocytes % (A) 5 %; Neutrophils # (A) 8.2 k/uL (1.3-7.7); Neutrophils % (A) 74 %; Platelet Count 382 k/uL (150-450); RBC 4.22 m/uL (3.80-5.40); RDW 14.2 % (11.5-15.5)
[2019-07-07] MEDS ORDERED: HYDROCORTISONE 2.5% RECTAL CREAM 30 GM TUBE RECTAL PRN (13:48)
[2019-07-07] MEDS ORDERED: diphenhydrAMINE 50 MG/ML 1 ML VIAL IVP PRN (13:48)
[2019-07-07] MEDS ORDERED: WITCH HAZEL 1 EACH MED..PAD TOPICAL PRN (13:48)
[2019-07-07] MEDS ORDERED: ZOLPIDEM 5 MG TAB PO PRN (13:48)
[2019-07-07] MEDS ORDERED: LANOLIN CREAM 5 GM TUBE TOPICAL PRN (13:48)
[2019-07-07] MEDS ORDERED: diphenhydrAMINE 25 MG CAP PO PRN (13:48)
[2019-07-07] MEDS ORDERED: SIMETHICONE 80 MG CHEWABLE PO PRN (13:48)
[2019-07-07] MEDS ORDERED: BENZOCAINE/MENTHOL SPRAY 1 GM/SPRAY AEROSOL TOPICAL PRN (13:48)
[2019-07-07] MEDS ORDERED: BISACODYL 10 MG SUPP RECTAL PRN (13:48)
--- NOTE | 2019-07-07 13:52 | P.PROBDLV ---
Vaginal Delivery Note - . Vaginal Delivery Note: Normal spontaneous vaginal delivery viable male infant Apgars 9 and 9 delivery time is 1337 hours. Please see dictated H&P for details of this patient's admission. Brief summary this pleasant 23-year-old 2 para 1 female 39-6/7 weeks gestation admitted to labor and delivery with complaints of regular painful contractions. Patient's 3 cm on admission and quickly goes to 4-5 cm dilated. She has artificial rupture membranes for moderate meconium-stained fluid. heart tones are category 1. Patient requested epidural which was given with fair relief. Patient's labor continues quickly and she gets to complete pushes the head to the perineum. The posterior perineum was supported and we have controlled delivery of the 's head over the intact perineum. Mouth and nares are bulb suctioned. There is no evidence of a nuchal cord. With gentle downward traction within the deliver the anterior and posterior shoulder and rest this infant's body. This is a vigorous viable male Apgars are 9 and 9 delivery time is 1336 hrs. The nurse dent remover was present for delivery but the had spontaneous cry and did not require any suction otherwise. After delivery of the infant is laid on the mother's abdomen and the umbilical cord is allowed to quit pulsating which is then doubly clamped and cut. The placenta spontaneously delivered intact. Of note it is meconium-stained. Inspection of perineum shows no lacerations and there were no repair required. Estimated blood loss is 100 mL. There are no complications. and mother stable delivery room.
[2019-07-07] MEDS: IBUPROFEN 600 MG TAB PO PRN ×2 (14:18→19:37)
[2019-07-07] MEDS ORDERED: METHYLERGONOVINE 0.2 MG/ML 1 ML AMP IM ONE (18:01)
[2019-07-07] MEDS: OXYTOCIN 20 UNITS/1000 ML NS 1,000 ML IV SCH ×2 (18:03→19:05)
[2019-07-07] MEDS ORDERED: OXYTOCIN 10 UNIT/ML 1 ML VIAL IV STA (18:26)
--- NOTE | 2019-07-07 19:12 | P.PN ---
Progress Note - Text Progress Note Date: 07/07/19 I was called to see Tristane secondary to bleeding. Patient is status post vaginal delivery approximately 4 hours ago that was uncomplicated. Patient was doing well but had gotten up to go to the shower to the bathroom and had passed several clots and got lightheaded. Uterus is found to be well above the umbilicus. The nurse did express some clots and began IV with Pitocin. I ordered Methergine on my way into the hospital. Examination shows several more old clots about the size of a golf ball to tennis ball. Uterus is firm at the umbilicus. I gave her 10 units of Pitocin IV straight to ensure no further atony. She had no lacerations and the placenta came out without incident therefore this appears to be pure atony. At this time I'm waiting for a CBC. Estimated blood loss is approximately 1500 mL from the atony. I'm going to continue the IV Pitocin and oral Methergine. Her blood pressure is fine and she is mildly tachycardic but feels much better. We will continue to watch her closely.
[2019-07-07 19:20] LABS: Basophils % (A) 0 %; Eosinophils % (A) 0 %; HCT 30.7 % (34.0-46.0); Hypochromasia Slight; Lymphocytes # (A) 1.1 k/uL (1.0-4.8); Lymphocytes % (A) 6 %; MCHC 31.8 g/dL (31.0-37.0); MCV 87.8 fL (80.0-100.0); Mean Platelet Volume 8.7; Monocytes # (A) 0.8 k/uL (0-1.0); Monocytes % (A) 4 %; Neutrophils # (A) 16.8 k/uL (1.3-7.7); Neutrophils % (A) 89 %; Platelet Count 364 k/uL (150-450); RBC 3.49 m/uL (3.80-5.40); RDW 14.2 % (11.5-15.5); WBC 18.9 k/uL (3.8-10.6)
[2019-07-07] MEDS: SENNOSIDES-DOCUSATE SODIUM 1 EACH TAB PO SCH (19:37)
[2019-07-07 19:46] LABS: HGB 9.8 gm/dL (11.4-16.0)
[2019-07-07] MEDS: METHYLERGONOVINE 0.2 MG TAB PO SCH (22:00)
[2019-07-08 01:34] VITALS: RESP 16
[2019-07-08] MEDS: ACETAMINOPHEN TAB 325 MG TAB PO PRN ×2 (01:40→07:37)
[2019-07-08] MEDS: IBUPROFEN 600 MG TAB PO PRN ×2 (03:58→10:37)
[2019-07-08 06:18] LABS: Basophils % (A) 0 %; Eosinophils # (A) 0.1 k/uL (0-0.7); Eosinophils % (A) 1 %; HCT 22.7 % (34.0-46.0); Hypochromasia Slight; Lymphocytes # (A) 2.5 k/uL (1.0-4.8); Lymphocytes % (A) 18 %; MCH 28.9 pg (25.0-35.0); MCV 87.6 fL (80.0-100.0); Mean Platelet Volume 7.5; Monocytes # (A) 0.9 k/uL (0-1.0); Monocytes % (A) 6 %; Neutrophils # (A) 10.2 k/uL (1.3-7.7); Neutrophils % (A) 74 %; Platelet Count 286 k/uL (150-450); RBC 2.59 m/uL (3.80-5.40); RDW 14.3 % (11.5-15.5); WBC 13.8 k/uL (3.8-10.6)
[2019-07-08 06:29] LABS: HGB 7.5 gm/dL (11.4-16.0)
--- NOTE | 2019-07-08 06:52 | P.PNOBGVD ---
Subjective - Subjective Patient reports: Reports appetite normal, Reports voiding normally, Reports pain well controlled, Reports ambulating normally : doing well Objective - Latest Vital Signs Latest vital signs: Vital Signs Temp Pulse Resp BP Pulse Ox 07/08/19 04:00 98.0 F 95 16 122/69 07/08/19 00:00 97.4 F L 99 16 135/79 99 07/07/19 19:43 97.8 F 92 18 130/66 98 07/07/19 18:56 98 18 135/89 99 07/07/19 18:47 92 18 124/88 98 07/07/19 18:33 103 H 18 137/78 98 07/07/19 18:30 107 H 18 113/56 99 07/07/19 18:21 109 H 18 121/70 99 07/07/19 18:11 94 18 121/67 99 07/07/19 18:08 98.2 F 07/07/19 18:05 88 18 107/68 07/07/19 17:58 110 H 18 111/61 100 07/07/19 17:50 78/43 07/07/19 17:40 99 18 74/52 100 07/07/19 16:08 97.4 F L 79 16 111/66 07/07/19 15:10 92 16 110/60 07/07/19 14:25 78 16 120/67 07/07/19 14:10 99 17 120/69 07/07/19 13:55 97 16 121/70 07/07/19 13:40 98.6 F 103 H 16 113/51 07/07/19 10:34 97.2 F L 78 16 131/76 96 Intake and Output 07/07/19 07/07/19 07/08/19 14:59 22:59 06:59 Intake Total 1000 625 Balance 1000 625 Intake: IV 625 Intake, IV Titration 1000 Amount Oxytocin 20 Units/1000 ml 1000 Ns 1,000 ml @ Per Protocol IV .Q0M [facility] Rx#: [id number] Other: # Voids 1 1 2 Weight 63.503 kg - Exam Lungs: bilateral: normal Chest: Normal S1, Normal S2 Extremities: Present: normal Abdomen: Present: normal appearance, soft Uterus: Present: normal, firm - Labs Labs: Abnormal Lab Results - Last 24 Hours (Table) 05/24/20 05/24/20 05/25/20 Range/Units 10:55 17:55 05:29 WBC 11.0 H 18.9 H 13.8 H (3.8-10.6) k/uL RBC 3.49 L 2.59 L (3.80-5.40) m/uL Hgb 9.8 L D 7.5 L D (11.4-16.0) gm/dL Hct 30.7 L 22.7 L (34.0-46.0) % Neutrophils # 8.2 H 16.8 H 10.2 H (1.3-7.7) k/uL Assessment and Plan Assessment: day #2. Patient is resting without new complaints. Vital signs are stable and she is afebrile. Uterus is firm nontender she's had normal lochia since last evening. Patient had an episode of atony (see dictated progress note) but this has resolved. Hemoglobin this morning is 7.5 which is expected. Patient is for the most part asymptomatic and has requested to go home. I initially talked her about staying another day secondary to the anemia however she lives 5 minutes away and desires to go home strongly. 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 Plan today is to continue post care. I'm going to give her a dose of Chromogen. She was instructed follow-up in the office in 1 week for a hemoglobin check. (1) 40 weeks gestation of Current Visit: Yes Status: Acute Code(s): Z3A.40 - 40 WEEKS GESTATION OF SNOMED Code(s): 44996618 (2) Normal labor Current Visit: No Status: Resolved Code(s): O80 - ENCOUNTER FOR FULL-TERM UNCOMPLICATED DELIVERY; Z37.9 - OUTCOME OF DELIVERY, UNSPECIFIED SNOMED Code(s): 70984210 (3) atony of uterus with hemorrhage Current Visit: Yes Status: Acute Code(s): O72.1 - OTHER IMMEDIATE HEMORRHAGE SNOMED Code(s): 65620179
--- NOTE | 2019-07-08 06:58 | P.DS ---
Providers Date of admission: 07/07/19 10:28 Expected date of discharge: 07/08/19 Attending physician: Ashlyn Carvajal Primary care physician: Stated None - Discharge Diagnosis(es) (1) 40 weeks gestation of Current Visit: Yes Status: Acute (2) Normal labor Current Visit: No Status: Resolved (3) atony of uterus with hemorrhage Current Visit: Yes Status: Acute Hospital Course: Please see dictated H&P for intimate details of this patient's admission. Brief summary this pleasant 23-year-old 2 para 1 female 39-6/7 weeks gestation admitted to labor and delivery in active labor. Patient quickly went on to have a vaginal delivery of viable male . Please see dictated delivery note. Proximally 4 hours after delivery patient developed some atony and did have a significant blood loss. This responded to uterine massage and Pitocin with Methergine. Overnight patient had no further significant bleeding and hemoglobin was 7.5. Patient requested to go home and since her vital signs were excellent and she was without significant symptoms I felt she was stable to discharge home follow up in 1 week for hemoglobin check. Procedures: Normal spontaneous vaginal delivery Patient Condition at Discharge: Good Plan - Discharge Summary New Discharge Prescriptions: New Ibuprofen [Motrin] 600 mg PO Q6HR PRN #30 tab PRN Reason: Mild Pain Or Fever >= 100.5 Iron Ag/C/B12/Ca/Suc.acid/Stom [Multigen] 1 each PO DAILY #30 tab No Action Pnv No.95/Ferrous Fum/Folic AC [ Multivitamin Tablet] 1 each PO DAILY Discharge Medication List Pnv No.95/Ferrous Fum/Folic AC [ Multivitamin Tablet] 1 each PO DAILY 12/17/18 [History] Ibuprofen [Motrin] 600 mg PO Q6HR PRN #30 tab 07/08/19 [Rx] Iron Ag/C/B12/Ca/Suc.acid/Stom [Multigen] 1 each PO DAILY #30 tab 07/08/19 [Rx] Follow up Appointment(s)/Referral(s): Ashlyn Carvajal DO [Doctor of Osteopathic Medicine] - 1 Week Patient Instructions/Handouts: Vaginal Delivery (DC), Iron Deficiency Anemia (DC) Activity/Diet/Wound Care/Special Instructions: No intercourse or anything per vagina for 6 weeks. Please call if any fever, chills, excessive vaginal bleeding, and/or abdominal pain. Please take iron as directed. Call the office tomorrow to see Dr. Carvajal in approximately 1 week for a hemoglobin check. Discharge Disposition: HOME SELF-CARE
[2019-07-08] MEDS: SENNOSIDES-DOCUSATE SODIUM 1 EACH TAB PO SCH (07:37)
[2019-07-08 07:45] VITALS: BP 125/75; PULSE 92; TEMP 98.2
[2019-07-08] MEDS ORDERED: IRON AG/C/B12/CA/SUC.ACID/STOM 1 EACH TAB PO SCH (09:00)
[2019-07-08] MEDS: METHYLERGONOVINE 0.2 MG TAB PO SCH (09:01)
== END 2019-07-08 13:50 | disposition home or self-care (01) | DRG 806 ==
LOC: FBPOP 10:15 → 4FBP 10:28
PROVIDERS: ADMIT Obstetrics & Gynecology; ATTEND Obstetrics & Gynecology
PROC: 00HU33Z Insertion of Infusion Device into Spinal Canal, Percutaneous Approach (ICD-10-PCS; principal; 2019-07-07)
PROC: 10E0XZZ Delivery of Products of Conception, External Approach (ICD-10-PCS; principal; 2019-07-07)
PROC: 3E0R3BZ Introduction of Anesthetic Agent into Spinal Canal, Percutaneous Approach (ICD-10-PCS; principal; 2019-07-07)
DX: O77.0 Labor and delivery complicated by meconium in amniotic fluid (principal); O72.1 Other immediate postpartum hemorrhage; Z37.0 Single live birth; O99.02 Anemia complicating childbirth; D64.9 Anemia, unspecified; Z3A.39 39 weeks gestation of pregnancy; Z87.442 Personal history of urinary calculi; Z91.041 Radiographic dye allergy status; Z82.49 Family history of ischemic heart disease and other diseases of the circulatory system; Z80.9 Family history of malignant neoplasm, unspecified
CPT/HCPCS: 59025; 85025; 86850; 86900; 86901; 88307; 99213

== ENCOUNTER 2019-07-10 23:05 | Inpatient (IN) | payer BC ==
[2019-07-11 01:29] LABS: Basophils % (A) 0 %; Eosinophils # (A) 0.4 k/uL (0-0.7); Eosinophils % (A) 3 %; HCT 20.2 % (34.0-46.0); Hypochromasia Slight; Lymphocytes # (A) 2.6 k/uL (1.0-4.8); Lymphocytes % (A) 22 %; MCH 28.8 pg (25.0-35.0); MCHC 32.5 g/dL (31.0-37.0); MCV 88.5 fL (80.0-100.0); Mean Platelet Volume 7.4; Monocytes # (A) 0.6 k/uL (0-1.0); Monocytes % (A) 5 %; Neutrophils # (A) 8.2 k/uL (1.3-7.7); Neutrophils % (A) 69 %; Platelet Count 377 k/uL (150-450); RBC 2.29 m/uL (3.80-5.40); RDW 15.1 % (11.5-15.5); WBC 11.9 k/uL (3.8-10.6)
[2019-07-11 01:35] LABS: HGB 6.6 gm/dL (11.4-16.0)
[2019-07-11] MEDS ORDERED: SODIUM CHLORIDE 0.9% 1,000 ML IV SCH (02:00)
[2019-07-11 04:14] VITALS: RESP 16
[2019-07-11] MEDS ORDERED: ACETAMINOPHEN TAB 325 MG TAB PO PRN (04:20)
--- NOTE | 2019-07-11 07:21 | P.HPOB ---
History of Present Illness H&P Date: 07/11/19 Chief Complaint: Shortness of breath and tachycardia 23-year-old status post normal vaginal delivery day #4 [facility] complaining of shortness of breath and increased tachycardia. She did have a significant bleed 4 hours after her delivery and her hemoglobin was 7.5-Malay with possible 4 days ago. She called tonight complaining of increased shortness of breath, swelling in both legs, and tachycardia. I recommend for evaluation and found her hemoglobin to be 6.6, tachycardic at 115, blood oxygenation level was normal. I will admit her for observation and 1 unit of packed red blood cells. Review of Systems All systems: negative Constitutional: Denies chills, Denies fever Eyes: denies blurred vision, denies pain Ears, nose, mouth and throat: Denies headache, Denies sore throat Cardiovascular: Denies chest pain, Denies shortness of breath Respiratory: Denies cough Gastrointestinal: Denies abdominal pain, Denies diarrhea, Denies nausea, Denies vomiting Genitourinary: Denies dysuria, Denies hematuria Musculoskeletal: Denies myalgias Integumentary: Denies pruritus, Denies rash Neurological: Denies numbness, Denies weakness Psychiatric: Denies anxiety, Denies depression Endocrine: Denies fatigue, Denies weight change Past Medical History Past Medical History: Asthma Additional Past Medical History / Comment(s): postural orthostatic tachycaria syndrome, kidney stone History of Any Multi-Drug Resistant Organisms: None Reported Past Surgical History: Orthopedic Surgery Past Anesthesia/Blood Transfusion Reactions: No Reported Reaction Smoking Status: Never smoker - Past Family History Mother Family Medical History: Cancer, Hypertension Medications and Allergies Home Medications Medication Instructions Recorded Confirmed Type Pnv No.95/Ferrous Fum/Folic AC 1 each PO DAILY 12/17/18 07/10/19 History [ Multivitamin Tablet] Ibuprofen [Motrin] 600 mg PO Q6HR PRN #30 tab 07/08/19 07/10/19 Rx Iron Ag/C/B12/Ca/Suc.acid/Stom 1 each PO DAILY #30 tab 07/08/19 07/10/19 Rx [Multigen] Sertraline [Zoloft] 25 mg PO DAILY 07/10/19 07/10/19 History Allergies Allergy/AdvReac Type Severity Reaction Status Date / Time Iodinated Contrast Media Allergy Anaphylaxis Verified 07/10/19 23:10 [Iodinated Contrast Media - Oral and] Exam Osteopathic Statement: *. No significant issues noted on an osteopathic structural exam other than those noted in the History and Physical/Consult. Vital Signs Temp Pulse Pulse Resp BP BP Pulse Ox 07/11/19 04:50 97.6 F 98 16 120/79 99 07/11/19 04:40 97.1 F L 105 H 16 115/73 99 07/11/19 04:20 97.6 F 103 H 16 112/66 99 07/11/19 04:10 97.6 F 97 16 119/75 100 07/10/19 23:12 98.3 F 106 H 18 131/89 Intake and Output 07/10/19 07/11/19 07/11/19 22:59 06:59 14:59 Intake Total 0 Balance 0 Intake: Blood Product 0 Rc As-1 Unit 0 [id number] Other: Weight 76.204 kg Heart: Regular rate and rhythm Lungs: Clear to auscultation bilaterally Abdomen: Soft, nontender, fundus firm Extremities: Negative Homans sign Of note: Scant serosanguineous fluid on patient's pad. Results Result Diagrams: 07/11/19 00:25 Abnormal Lab Results - Last 24 Hours (Table) 07/11/19 07/11/19 Range/Units 00:25 02:20 WBC 11.9 H (3.8-10.6) k/uL RBC 2.29 L (3.80-5.40) m/uL Hgb 6.6 L* (11.4-16.0) gm/dL Hct 20.2 L (34.0-46.0) % Neutrophils # 8.2 H (1.3-7.7) k/uL Crossmatch See Detail Assessment and Plan (1) atony of uterus with hemorrhage Current Visit: No Status: Acute Code(s): O72.1 - OTHER IMMEDIATE HEMORRHAGE SNOMED Code(s): 99951906 (2) Acute blood loss anemia Current Visit: Yes Status: Acute Code(s): D62 - ACUTE POSTHEMORRHAGIC ANEMIA SNOMED Code(s): 916927389 Plan: 1. Admit for observation 2. Monitor her bleeding 3. One unit of packed red blood cells and will recheck a CBC a few hours later.
[2019-07-11 10:20] LABS: Basophils % (A) 0 %; Eosinophils # (A) 0.3 k/uL (0-0.7); Eosinophils % (A) 3 %; HCT 28.5 % (34.0-46.0); Hypochromasia Slight; Lymphocytes # (A) 2.2 k/uL (1.0-4.8); Lymphocytes % (A) 20 %; MCH 27.6 pg (25.0-35.0); MCHC 30.8 g/dL (31.0-37.0); MCV 89.7 fL (80.0-100.0); Mean Platelet Volume 7.3; Monocytes # (A) 0.5 k/uL (0-1.0); Monocytes % (A) 5 %; Neutrophils % (A) 71 %; Platelet Count 439 k/uL (150-450); RBC 3.18 m/uL (3.80-5.40); RDW 14.9 % (11.5-15.5); WBC 11.2 k/uL (3.8-10.6)
[2019-07-11 10:25] LABS: HGB 8.8 gm/dL (11.4-16.0)
[2019-07-11 11:24] VITALS: BP 121/71; PULSE 97; TEMP 97.4
== END 2019-07-11 13:05 | disposition home or self-care (01) | DRG 776 ==
LOC: FBPOP 23:05 → 4FBP 07-11 01:48 → OBSVTOIN 07-11 09:50
PROVIDERS: ADMIT Obstetrics & Gynecology; ATTEND Obstetrics & Gynecology
PROC: 30233N1 Transfusion of Nonautologous Red Blood Cells into Peripheral Vein, Percutaneous Approach (ICD-10-PCS; principal; 2019-07-11)
DX: O72.1 Other immediate postpartum hemorrhage (principal); D62 Acute posthemorrhagic anemia; O90.81 Anemia of the puerperium; J45.909 Unspecified asthma, uncomplicated; R00.0 Tachycardia, unspecified; Z79.899 Other long term (current) drug therapy; Z87.442 Personal history of urinary calculi; Z91.041 Radiographic dye allergy status; Z82.49 Family history of ischemic heart disease and other diseases of the circulatory system; Z80.9 Family history of malignant neoplasm, unspecified
CPT/HCPCS: 85025; 86850; 86900; 86901; 86920; 99213

== ENCOUNTER → 2019-11-11 | Outpatient (CLI) | payer OTHER ==
[2019-11-11 11:59] LABS: Anisocytosis Slight; HCT 34.5 % (34.0-46.0); HGB 10.7 gm/dL (11.4-16.0); Hypochromasia Moderate; MCH 24.2 pg (25.0-35.0); MCV 78.2 fL (80.0-100.0); Mean Platelet Volume 6.7; Microcytosis Slight; Platelet Count 412 k/uL (150-450); RBC 4.41 m/uL (3.80-5.40); RDW 16.7 % (11.5-15.5); WBC 10.4 k/uL (3.8-10.6)
[2019-11-12 16:39] LABS: HCG,Quantitative Serum <2.0 mIU/mL
== END | disposition home or self-care (01) ==
LOC: LABWHC1 09:24
PROVIDERS: ATTEND Obstetrics & Gynecology
DX: Z13.29 Encounter for screening for other suspected endocrine disorder (principal); N93.9 Abnormal uterine and vaginal bleeding, unspecified
CPT/HCPCS: 36415; 84439; 84443; 84481; 84702; 85027

== ENCOUNTER 2022-03-06 00:15 | Inpatient (IN) | payer OTHER ==
[2022-03-06] MEDS ORDERED: LIDOCAINE 0.5% (PF) 5 MG/ML (50 ML SDV) SQ PRN (01:01)
[2022-03-06] MEDS ORDERED: TERBUTALINE 1 MG/ML VIAL SQ PRN (01:01)
[2022-03-06] MEDS: LACTATED RINGERS 1,000 ML IV SCH ×3 (01:05→07:16)
[2022-03-06] MEDS ORDERED: OXYTOCIN 30 UNITS/500 ML NS 30 UNIT in SALINE 1 500ML.BAG IV SCH ×2 (01:15→09:46)
[2022-03-06 01:39] LABS: Basophils % (A) 0 %; Eosinophils # (A) 0.1 k/uL (0-0.7); Eosinophils % (A) 1 %; HCT 36.7 % (34.0-46.0); HGB 11.9 gm/dL (11.4-16.0); Hypochromasia Slight; Lymphocytes # (A) 2.4 k/uL (1.0-4.8); Lymphocytes % (A) 20 %; MCH 26.3 pg (25.0-35.0); MCHC 32.5 g/dL (31.0-37.0); Mean Platelet Volume 8.2; Monocytes # (A) 0.7 k/uL (0-1.0); Monocytes % (A) 6 %; Neutrophils # (A) 8.6 k/uL (1.3-7.7); Neutrophils % (A) 72 %; Platelet Count 318 k/uL (150-450); Poikilocytosis Slight; RBC 4.53 m/uL (3.80-5.40); RDW 14.1 % (11.5-15.5)
[2022-03-06 01:44] LABS: Creatinine,Urine Random 66.1 mg/dL; Protein/Creatinine Ratio,Urine 0.408
[2022-03-06 01:45] LABS: ALT 23 U/L (4-34); AST 29 U/L (14-36); African American GFR (CKD) >90 (>60 ml/min/1.73 sqM); Blood Urea Nitrogen 7 mg/dL (7-17); LDH 589 U/L (313-618); Non-African American GFR(CKD) >90 (>60 ml/min/1.73 sqM); Uric Acid 6.7 mg/dL (3.7-7.4)
[2022-03-06 01:50] LABS: Appearance,Urine Clear (Clear); Bilirubin,Urine Negative (Negative); Blood,Urine Negative (Negative); Color,Urine Light Yellow; Glucose,Urine (UA) Negative (Negative); Ketones,Urine Negative (Negative); Leukocyte Esterase,Urine Negative (Negative); Nitrite,Urine Negative (Negative); Protein,Urine Negative (Negative); Specific Gravity,Urine 1.012 (1.001-1.035); Urobilinogen,Urine <2.0 mg/dL (<2.0)
[2022-03-06 02:01] LABS: INR 0.9 (<1.2); Partial Thromboplastin Time 23.6 sec (22.0-30.0); Prothrombin Time 9.7 sec (9.0-12.0)
[2022-03-06] MEDS ORDERED: SODIUM CHLORIDE 0.9% 100 ML BAG ONE (02:08)
[2022-03-06] MEDS ORDERED: fentaNYL (PF) 50 MCG/ML 5 ML AMP ONE (02:08)
[2022-03-06] MEDS ORDERED: ROPIVACAINE 5 MG/ML 20 ML AMPULE ONE (02:08)
--- NOTE | 2022-03-06 08:45 | P.HPOB ---
History of Present Illness H&P Date: 03/06/22 Chief Complaint: Contractions This is a 26-year-old female 3 para 2 with an estimated date of confinement of 03/15/2022, estimated gestational age of 38-5/7 weeks, who presented to labor and delivery with complaints of contractions that began at about 10:30 last night and became stronger prior to admission. On arrival at triage she was noted to have several fairly elevated blood pressures in the 140s to 150s over low 100s. She denied any headaches or blurry vision or epigastric pain. She denied any rupture of membranes. care has been with Dr. Carvajal. She has seen maternal medicine during this due to her sister having a history of DVT and PE after her delivery and the fact that the patient was taking Adderall at the beginning of her . 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 Patient states she took it up until 32 weeks and then stopped it because she did not like the way she felt on it. In review of the maternal medicine consultation, it was discussed that surveillance was an option however they did recommend taking the Lovenox. She was also advised to continue taking her Wellbutrin and Adderall and adding Zoloft if she felt she needed it. The patient does state she has started Zoloft. labs: Hepatitis B surface antigen-negative RPR-nonreactive Rubella-immune Blood type-O+ Antibody screen-negative HIV-nonreactive Hemoglobin-13.1 Random glucose-80 1 hour Glucola-61 Group B streptococcus-negative Most recent ultrasound on 02/22/2022-vertex presentation, 5 lbs. 15 oz. Obstetrical history: . History of 2 vaginal deliveries at term. Her second delivery did result in maternal hemorrhage that was attributed to atrophy. She was given 1 unit of blood along with a medication IM. Social history: She is . She works as an RN at [employer]. Review of Systems Constitutional: Denies chills, Denies fever Eyes: denies blurred vision, denies pain Ears, nose, mouth and throat: Denies headache, Denies sore throat Cardiovascular: Denies chest pain, Denies shortness of breath Respiratory: Denies cough Gastrointestinal: Reports abdominal pain (Contractions) Genitourinary: Reports pelvic pain, Reports Musculoskeletal: Reports low back pain Integumentary: Denies pruritus, Denies rash Neurological: Denies numbness, Denies weakness Psychiatric: Reports anxiety, Reports depression, Reports difficulty concentrating Past Medical History Past Medical History: Asthma Additional Past Medical History / Comment(s): postural orthostatic tachycaria syndrome, kidney stone, 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 History of Any Multi-Drug Resistant Organisms: None Reported Past Surgical History: Orthopedic Surgery Additional Past Surgical History / Comment(s): right wrist Past Anesthesia/Blood Transfusion Reactions: No Reported Reaction Past Psychological History: ADD/ADHD, Anxiety, Depression Smoking Status: Never smoker Past Alcohol Use History: None Reported Past Drug Use History: None Reported - Past Family History Mother Family Medical History: Cancer, Hypertension Additional Family Medical History / Comment(s): breast and ovarian cancer Father Family Medical History: No Reported History Sister(s) Additional Family Medical History / Comment(s): DVT and bilateral PEs following delivery Medications and Allergies Home Medications Medication Instructions Recorded Confirmed Type Pnv No.95/Ferrous Fum/Folic AC 1 each PO DAILY 12/17/18 03/06/22 History [ Multivitamin Tablet] Sertraline [Zoloft] 25 mg PO DAILY 07/10/19 03/06/22 History Dextroamphetamine/Amphetamine 50 mg PO 03/06/22 History [Mydayis ER 50 mg Capsule] Metoclopramide [Reglan] 10 mg PO HS 03/06/22 03/06/22 History buPROPion HCL [buPROPion HCL XL] 300 mg PO 03/06/22 History Allergies Allergy/AdvReac Type Severity Reaction Status Date / Time Iodinated Contrast Media Allergy Anaphylaxis Verified 03/06/22 00:34 [Iodinated Contrast Media - Oral and] Exam Osteopathic Statement: *. No significant issues noted on an osteopathic structural exam other than those noted in the History and Physical/Consult. Vital Signs Temp Pulse Resp BP Pulse Ox 03/06/22 01:19 97.4 F L 100 20 153/101 99 03/06/22 00:34 97.4 F L 100 20 153/101 Intake and Output 03/05/22 03/06/22 03/06/22 22:59 06:59 14:59 Other: Weight 79.832 kg HEENT: Within normal limits Heart: Regular rate and rhythm Lungs: Clear to auscultation bilaterally Abdomen: Cervix: Initially on arrival to triage was 3 cm/70%/-2 station, currently she is 7-8 cm/90%/-2 station with artificial rupture membranes carried out with clear fluid noted. heart tones: Reactive with occasional variable deceleration during contractions. Contractions: Every 2-3 minutes Extremities: Negative Homans Results Result Diagrams: 03/06/22 01:24 03/06/22 01:24 Abnormal Lab Results - Last 24 Hours (Table) 03/06/22 03/06/22 Range/Units 01:24 01:24 WBC 12.0 H (3.8-10.6) k/uL Neutrophils # 8.6 H (1.3-7.7) k/uL Fibrinogen 556 H (200-500) mg/dL Assessment and Plan (1) 38 weeks gestation of Current Visit: Yes Status: Acute Code(s): Z3A.38 - 38 WEEKS GESTATION OF SNOMED Code(s): 87131375 (2) Hypertension during in third trimester Current Visit: Yes Status: Acute Code(s): O16.3 - UNSPECIFIED MATERNAL HYPERTENSION, THIRD TRIMESTER SNOMED Code(s): 583832103 (3) Prothrombin [id number] mutation Current Visit: Yes Status: Acute Code(s): D68.52 - PROTHROMBIN GENE MUTATION SNOMED Code(s): 454754000 Plan: Admit for active labor. -induced hypertension workup was performed and the only abnormality was a PC ratio of 0.4. Will monitor blood pressures. Patient did receive epidural anesthesia. Expectant management. Will have all meds on hand and extra staff available due to her history of hemorrhage after her last child.
[2022-03-06] MEDS ORDERED: AMPHETAMINE PO SCH (09:46)
[2022-03-06] MEDS ORDERED: TRANEXAMIC ACID IN NACL,ISO-OS 1,000 MG in EMPTY BAG 1 BAG IV PRN (09:46)
[2022-03-06] MEDS ORDERED: ACETAMINOPHEN TAB 325 MG TAB PO PRN (09:46)
[2022-03-06] MEDS ORDERED: miSOPROStoL 200 MCG TAB PO PRN (09:46)
[2022-03-06] MEDS ORDERED: METHYLERGONOVINE 0.2 MG/ML 1 ML AMP IM PRN (09:46)
[2022-03-06] MEDS ORDERED: diphenhydrAMINE 50 MG/ML 1 ML VIAL IVP PRN ×2 (09:46)
[2022-03-06] MEDS ORDERED: SERTRALINE 25 MG TAB PO SCH ×2 (09:46→21:00)
[2022-03-06] MEDS ORDERED: DEXTROAMPHETAMINE PO SCH (09:46)
[2022-03-06] MEDS ORDERED: HYDROCORTISONE 2.5% RECTAL CREAM 30 GM TUBE RECTAL PRN (09:46)
[2022-03-06] MEDS ORDERED: diphenhydrAMINE 50 MG CAP PO PRN (09:46)
[2022-03-06] MEDS ORDERED: BENZOCAINE/MENTHOL SPRAY 1 GM/SPRAY AEROSOL TOPICAL PRN (09:46)
[2022-03-06] MEDS ORDERED: LANOLIN CREAM 5 GM TUBE TOPICAL PRN (09:46)
[2022-03-06] MEDS ORDERED: ZOLPIDEM 5 MG TAB PO PRN (09:46)
[2022-03-06] MEDS ORDERED: SIMETHICONE 80 MG CHEWABLE PO PRN (09:46)
[2022-03-06] MEDS ORDERED: CARBOPROST TROMETHAMINE 250 MCG/ML 1 ML AMP IM PRN (09:46)
[2022-03-06] MEDS ORDERED: diphenhydrAMINE 25 MG CAP PO PRN (09:46)
[2022-03-06] MEDS ORDERED: OXYTOCIN 10 UNIT/ML 1 ML VIAL IM PRN (09:46)
--- NOTE | 2022-03-06 09:54 | P.PROBDLV ---
Vaginal Delivery Note - . Vaginal Delivery Note: The patient progressed to complete dilation after artificial rupture membranes with clear fluid noted and epidural anesthesia. Once reaching complete, she began pushing. 's head came to a crown. With one further push, the 's head delivered across the perineum followed by the anterior shoulder and then the remainder the body. Infant was placed on mother's abdomen and nose and mouth were bulb suctioned. Cord was clamped and cut and was taken to warmer for evaluation. A viable male infant was noted with scores of 9 at 1 minute and 9 at 5 minutes and infant weight of 6 pounds 10.7 ounces. There was noted to be a true knot in the cord that was loose. Cord blood was obtained secondary to O+ blood type. Placenta delivered shortly thereafter, intact, with a three-vessel cord. Uterus initially contracted well after oxytocin was given and uterine massage was carried out. Inspection of the perineum revealed no perineal lacerations. While I was counting instruments, the patient began to bleed heavier. I placed a gloved hand within the uterine cavity and express some clots and massaged the uterus again. Her bladder was drained with a cath. Uterus did firm up again and Methergine 0.2 mg was given IM. At this point uterus still feels firm and bleeding is minimal. Estimated blood loss is approximately 300 mL's. Both mother and infant are in stable condition.
[2022-03-06] MEDS: IBUPROFEN 600 MG TAB PO PRN ×2 (10:07→17:11)
[2022-03-06] MEDS: buPROPion XL 300 MG TAB.ER.24H PO SCH (10:32)
[2022-03-06] MEDS: PRENATAL VIT-IRON-FOLIC ACID 1 EACH TABLET PO SCH (10:32)
[2022-03-06] MEDS ORDERED: METOCLOPRAMIDE 10 MG TAB PO STA (10:42)
[2022-03-06] MEDS ORDERED: METOCLOPRAMIDE 10 MG TAB PO PRN (10:49)
[2022-03-06] MEDS ORDERED: DIPH,PERTUS(ACELL)TETVAC-LF 0.5 ML VIAL IM ONE (17:53)
[2022-03-06] MEDS ORDERED: METOCLOPRAMIDE 10 MG TAB PO SCH (22:00)
[2022-03-07] MEDS: IBUPROFEN 600 MG TAB PO PRN ×2 (00:40→06:31)
[2022-03-07] MEDS: SENNOSIDES-DOCUSATE SODIUM 1 EACH TAB PO SCH ×2 (05:48→08:34)
[2022-03-07 07:43] LABS: Basophils % (A) 0 %; Eosinophils # (A) 0.1 k/uL (0-0.7); Eosinophils % (A) 1 %; HCT 30.2 % (34.0-46.0); Hypochromasia Slight; Lymphocytes # (A) 2.6 k/uL (1.0-4.8); Lymphocytes % (A) 18 %; MCH 26.1 pg (25.0-35.0); MCHC 31.9 g/dL (31.0-37.0); MCV 81.8 fL (80.0-100.0); Mean Platelet Volume 8.3; Monocytes # (A) 0.6 k/uL (0-1.0); Monocytes % (A) 4 %; Neutrophils # (A) 10.8 k/uL (1.3-7.7); Neutrophils % (A) 75 %; Platelet Count 319 k/uL (150-450); Poikilocytosis Slight; RBC 3.69 m/uL (3.80-5.40); RDW 14.7 % (11.5-15.5); WBC 14.5 k/uL (3.8-10.6)
[2022-03-07 07:52] LABS: HGB 9.6 gm/dL (11.4-16.0)
[2022-03-07] MEDS: buPROPion XL 300 MG TAB.ER.24H PO SCH (08:34)
[2022-03-07] MEDS: PRENATAL VIT-IRON-FOLIC ACID 1 EACH TABLET PO SCH (08:38)
[2022-03-07 08:45] VITALS: BP 126/75; PULSE 103; RESP 18; TEMP 97.9
--- NOTE | 2022-03-07 09:15 | P.DS ---
Providers Date of admission: 03/06/22 01:02 Expected date of discharge: 03/07/22 Attending physician: Ashlyn Carvajal Primary care physician: Stated None - Discharge Diagnosis(es) (1) Normal vaginal delivery Current Visit: Yes Status: Acute Hospital Course: Patient presented in labor. She underwent a normal vaginal delivery. course was uncomplicated. She denies nausea, vomiting, chest pain, shortness of breath or calf pain. Patient will be discharged home day #1 in stable condition to follow-up with me in 6 weeks. She should stay on her Lovenox for this time. Plan - Discharge Summary New Discharge Prescriptions: No Action Pnv No.95/Ferrous Fum/Folic AC [ Multivitamin Tablet] 1 each PO DAILY Sertraline [Zoloft] 25 mg PO DAILY Metoclopramide [Reglan] 10 mg PO HS buPROPion HCL [buPROPion HCL XL] 300 mg PO Dextroamphetamine/Amphetamine [Mydayis ER 50 mg Capsule] 50 mg PO Discharge Medication List Pnv No.95/Ferrous Fum/Folic AC [ Multivitamin Tablet] 1 each PO DAILY 12/17/18 [History] Sertraline [Zoloft] 25 mg PO DAILY 07/10/19 [History] Dextroamphetamine/Amphetamine [Mydayis ER 50 mg Capsule] 50 mg PO 03/06/22 [History] Metoclopramide [Reglan] 10 mg PO HS 03/06/22 [History] buPROPion HCL [buPROPion HCL XL] 300 mg PO 03/06/22 [History] Follow up Appointment(s)/Referral(s): Ashlyn Carvajal DO [Doctor of Osteopathic Medicine] - 6 Weeks Discharge Disposition: HOME SELF-CARE
== END 2022-03-07 15:06 | disposition home or self-care (01) | DRG 806 ==
LOC: FBPOP 00:15 → 4FBP 01:02
PROVIDERS: ADMIT Obstetrics & Gynecology; ATTEND Obstetrics & Gynecology
PROC: 10E0XZZ Delivery of Products of Conception, External Approach (ICD-10-PCS; principal; 2022-03-06)
PROC: 10907ZC Drainage of Amniotic Fluid, Therapeutic from Products of Conception, Via Natural or Artificial Opening (ICD-10-PCS; 2022-03-06)
PROC: 3E033VJ Introduction of Other Hormone into Peripheral Vein, Percutaneous Approach (ICD-10-PCS; 2022-03-06)
PROC: 4A0HXCZ Measurement of Products of Conception, Cardiac Rate, External Approach (ICD-10-PCS; 2022-03-06)
DX: O13.4 Gestational [pregnancy-induced] hypertension without significant proteinuria, complicating childbirth (principal); D68.52 Prothrombin gene mutation; Z37.0 Single live birth; O99.12 Other diseases of the blood and blood-forming organs and certain disorders involving the immune mechanism complicating childbirth; O69.2XX0 Labor and delivery complicated by other cord entanglement, with compression, not applicable or unspecified; F32.A Depression, unspecified; F41.9 Anxiety disorder, unspecified; F90.9 Attention-deficit hyperactivity disorder, unspecified type; J45.909 Unspecified asthma, uncomplicated; G90.A Postural orthostatic tachycardia syndrome [POTS]; O99.42 Diseases of the circulatory system complicating childbirth; O99.344 Other mental disorders complicating childbirth; O99.52 Diseases of the respiratory system complicating childbirth; Z3A.38 38 weeks gestation of pregnancy; Z79.899 Other long term (current) drug therapy; Z87.442 Personal history of urinary calculi
CPT/HCPCS: 59025; 81003; 82565; 82570; 83615; 84156; 84450; 84460; 84520; 84550; 85025; 85384; 85610; 85730; 86850; 86900; 86901; 99213

== ENCOUNTER 2022-12-16 22:49 | Inpatient (IN) | payer OTHER ==
--- NOTE | 2022-12-16 22:59 | ED ---
General Adult HPI - General Chief complaint: Vaginal Bleeding Stated complaint: 19 weeks preg vaginal bleeding Time Seen by Provider: 12/16/22 22:54 Source: patient Mode of arrival: ambulatory Limitations: no limitations - History of Present Illness Initial comments: Dictation was produced using [employer] dictation software. please excuse any grammatical, word or spelling errors. Chief Complaint: 27-year-old female 19 weeks presents with bleeding History of Present Illness: This 27-year-old female she is allegedly 19 weeks . Her is complicated by subchorionic bleed. She states that since the onset of her she had's had some spotting. Today she had passed small clots. She had an episode of pelvic pain which resolved. Patient asymptomatic at this time. Her GAME PROTECTOR is Dr. Carvajal. The ROS documented in this emergency department record has been reviewed and confirmed by me. Those systems with pertinent positive or negative responses have been documented in the HPI. All other systems are other negative and/or noncontributory. - Related Data Home Medications Medication Instructions Recorded Confirmed Pnv No.95/Ferrous Fum/Folic AC 1 each PO DAILY 12/17/18 03/06/22 [ Multivitamin Tablet] Sertraline [Zoloft] 25 mg PO DAILY 07/10/19 03/06/22 Dextroamphetamine/Amphetamine 50 mg PO 03/06/22 [Mydayis ER 50 mg Capsule] Metoclopramide [Reglan] 10 mg PO HS 03/06/22 03/06/22 buPROPion HCL [buPROPion HCL XL] 300 mg PO 03/06/22 Previous Rx's Medication Instructions Recorded Cephalexin [Keflex] 250 mg PO Q6HR #20 cap 11/09/22 Allergies Allergy/AdvReac Type Severity Reaction Status Date / Time Iodinated Contrast Media Allergy Anaphylaxis Verified 12/16/22 22:51 [Iodinated Contrast Media - Oral and] Review of Systems ROS Statement: Those systems with pertinent positive or pertinent negative responses have been documented in the HPI. ROS Other: All systems not noted in ROS Statement are negative. Past Medical History Past Medical History: Asthma Additional Past Medical History / Comment(s): postural orthostatic tachycaria syndrome, kidney stone, heterozygous for prothrombin [id number] Gene mutation, pre eclampsia History of Any Multi-Drug Resistant Organisms: None Reported Past Surgical History: Orthopedic Surgery Additional Past Surgical History / Comment(s): right wrist Past Anesthesia/Blood Transfusion Reactions: No Reported Reaction Past Psychological History: ADD/ADHD, Anxiety, Depression Smoking Status: Never smoker Past Alcohol Use History: None Reported Past Drug Use History: None Reported - Past Family History Mother Family Medical History: Cancer, Hypertension Additional Family Medical History / Comment(s): breast and ovarian cancer Father Family Medical History: No Reported History Sister(s) Additional Family Medical History / Comment(s): DVT and bilateral PEs following delivery General Exam - General Exam Comments Initial Comments: PHYSICAL EXAM: General Impression: Alert and oriented x3, not in acute distress HEENT: Normocephalic atraumatic, extra-ocular movements intact, pupils equal and reactive to light bilaterally, mucous membranes moist. Cardiovascular: Heart regular rate and rhythm Chest: Able to complete full sentences, no retractions, no tachypnea Abdomen: abdomen soft, non-tender, non-distended, no organomegaly Musculoskeletal: Pulses present and equal in all extremities, no peripheral edema Motor: no focal deficits noted Neurological: CN II-XII grossly intact, no focal motor or sensory deficits noted Skin: Intact with no visualized rashes Psych: Normal affect and mood Pelvic exam: Refused Limitations: no limitations Course Vital Signs 12/16/22 22:51 Temperature 98.5 F Pulse Rate 121 H Respiratory 18 Rate Blood Pressure 134/81 O2 Sat by Pulse 100 Oximetry Medical Decision Making - Medical Decision Making Was pt. sent in by a medical professional or institution (, PA, ASSISTANT TEACHER, urgent care, hospital, or retirement...) When possible be specific @ -No Did you speak to anyone other than the patient for history (EMS, parent, family, police, friend...)? What history was obtained from this source @ -No Did you review nursing and triage notes (agree or disagree)? Why? @ -I reviewed and agree with nursing and triage notes Were old charts reviewed (outside hosp., previous admission, EMS record, old EKG, old radiological studies, urgent care reports/EKG's, retirement records)? Report findings @ -No old charts were reviewed Differential Diagnosis (chest pain, altered mental status, abdominal pain women, abdominal pain men, vaginal bleeding, musculoskeletal, weakness, fever, dyspnea, syncope, headache, dizziness, GI bleed, back pain, seizure, CVA, palpatations, mental health)? @ -Differential Vaginal Bleeding: Spontaneous , threatened , molar , ectopic , bloody show, incompetent cervix, abruptioplacenta, placenta previa, uterine rupture, dysfunctional uterine bleeding, hemorrhage, uterine fibroids, this is not meant to be an all-inclusive list. EKG interpreted by me (3pts min.). @ -None done X-rays interpreted by me (1pt min.). @ -None done CT interpreted by me (1pt min.). @ -None done U/S interpreted by me (1pt. min.). @ -OB ultrasound shows no heart activity What testing was considered but not performed or refused? (CT, X-rays, U/S, l abs)? Why? @ -None What meds were considered but not given or refused? Why? @ -None Did you discuss the management of the patient with other professionals (professionals i.e. , PA, ASSISTANT TEACHER, lab, RT, psych nurse, social work instructor, publicity manager, teacher, submarine advisory team watch officer, hospice case manager)? Give summary @ -see below Was smoking cessation discussed for >3mins.? @ -No Was critical care preformed (if so, how long)? @ -No Were there social determinants of health that impacted care today? How? (Homelessness, low income, unemployed, alcoholism, drug addiction, transportation, low edu. Level, literacy, decrease access to med. care, [place] [facility], rehab)? @ -No Was there de-escalation of care discussed even if they declined (Discuss DNR or withdrawal of care, Hospice)? DNR status @ -No What co-morbidities impacted this encounter? (DM, HTN, Smoking, COPD, CAD, Cancer, CVA, ARF, Chemo, Hep., AIDS, mental health diagnosis, sleep apnea, morbid obesity)? @ -None Was patient admitted / discharged? Hospital course, mention meds given and route, prescriptions, significant lab abnormalities, going to OR and other pertinent info. @ -27-year-old female presents with pelvic pain and vaginal bleeding in pr egnancy. She is allegedly 19 weeks . She states that her is complicated by subchorionic bleed. Vital signs are stable. Laboratory evaluation shows greater than 182 red blood cells and 36 white blood cells. Ultrasound shows demise. Patient notified of results the results. Case discussed with on-call GAME PROTECTOR Dr. Cannon who is covering for Dr. Carvajal. Request that patient be admitted with induction procedure tomorrow morning. Undiagnosed new problem with uncertain prognosis? @ -No Drug Therapy requiring intensive monitoring for toxicity (Heparin, Nitro, Insulin, Cardizem)? @ -No Were any procedures done? @ -No Diagnosis/symptom? Acute, or Chronic, or Acute on Chronic? Uncomplicated (without systemic symptoms) or Complicated (systemic symptoms)? @ - demise Side effects of treatment? @ -No Exacerbation, Progression, or Severe Exacerbation? @ -No Poses a threat to life or bodily function? How? (Chest pain, [place], [place], pneumonia, PE, COPD, DKA, ARF, appy, cholecystitis, CVA, Diverticulitis, Homicidal, Suicidal, threat to staff... and all critical care pts) @ -ye - Lab Data Result diagrams: 12/16/22 23:13 12/16/22 23:13 Lab Results 12/16/22 12/16/22 12/16/22 Range/Units 23:13 23:13 23:13 WBC 11.4 H (3.8-10.6) k/uL RBC 4.51 (3.80-5.40) m/uL Hgb 13.0 (11.4-16.0) gm/dL Hct 39.3 (34.0-46.0) % MCV 87.2 (80.0-100.0) fL MCH 28.9 (25.0-35.0) pg MCHC 33.1 (31.0-37.0) g/dL RDW 15.2 (11.5-15.5) % Plt Count 415 (150-450) k/uL MPV 7.2 Neutrophils % 65 % Lymphocytes % 23 % Monocytes % 5 % Eosinophils % 5 % Basophils % 0 % Neutrophils # 7.4 (1.3-7.7) k/uL Lymphocytes # 2.7 (1.0-4.8) k/uL Monocytes # 0.6 (0-1.0) k/uL Eosinophils # 0.6 (0-0.7) k/uL Basophils # 0.0 (0-0.2) k/uL Sodium 134 L (137-145) mmol/L Potassium 4.4 (3.5-5.1) mmol/L Chloride 102 (98-107) mmol/L Carbon Dioxide 20 L (22-30) mmol/L Anion Gap 12 mmol/L BUN 9 (7-17) mg/dL Creatinine 0.55 (0.52-1.04) mg/dL Est GFR (CKD-EPI)AfAm >90 (>60 ml/min/1.73 sqM) Est GFR (CKD-EPI)NonAf >90 (>60 ml/min/1.73 sqM) Glucose 102 H (74-99) mg/dL Calcium 10.1 (8.4-10.2) mg/dL Urine Color Light Red Urine Appearance Cloudy H (Clear) Urine pH 5.5 (5.0-8.0) Ur Specific [place] 1.016 (1.001-1.035) Urine Protein 1+ H (Negative) Urine Glucose (UA) Negative (Negative) Urine Ketones Negative (Negative) Urine Blood Large H (Negative) Urine Nitrite Negative (Negative) Urine Bilirubin Negative (Negative) Urine Urobilinogen <2.0 (<2.0) mg/dL Ur Leukocyte Esterase Large H (Negative) Urine RBC >182 H (0-5) /hpf Urine WBC 36 H (0-5) /hpf Ur Squamous Epith Cells 4 (0-4) /hpf Urine Mucus Rare H (None) /hpf Blood Type Blood Type Recheck Bld Type Recheck Status Antibody Screen Spec Expiration Date 12/16/22 Range/Units 23:15 WBC (3.8-10.6) k/uL RBC (3.80-5.40) m/uL Hgb (11.4-16.0) gm/dL Hct (34.0-46.0) % MCV (80.0-100.0) fL MCH (25.0-35.0) pg MCHC (31.0-37.0) g/dL RDW (11.5-15.5) % Plt Count (150-450) k/uL MPV Neutrophils % % Lymphocytes % % Monocytes % % Eosinophils % % Basophils % % Neutrophils # (1.3-7.7) k/uL Lymphocytes # (1.0-4.8) k/uL Monocytes # (0-1.0) k/uL Eosinophils # (0-0.7) k/uL Basophils # (0-0.2) k/uL Sodium (137-145) mmol/L Potassium (3.5-5.1) mmol/L Chloride (98-107) mmol/L Carbon Dioxide (22-30) mmol/L Anion Gap mmol/L BUN (7-17) mg/dL Creatinine (0.52-1.04) mg/dL Est GFR (CKD-EPI)AfAm (>60 ml/min/1.73 sqM) Est GFR (CKD-EPI)NonAf (>60 ml/min/1.73 sqM) Glucose (74-99) mg/dL Calcium (8.4-10.2) mg/dL Urine Color Urine Appearance (Clear) Urine pH (5.0-8.0) Ur Specific [place] (1.001-1.035) Urine Protein (Negative) Urine Glucose (UA) (Negative) Urine Ketones (Negative) Urine Blood (Negative) Urine Nitrite (Negative) Urine Bilirubin (Negative) Urine Urobilinogen (<2.0) mg/dL Ur Leukocyte Esterase (Negative) Urine RBC (0-5) /hpf Urine WBC (0-5) /hpf Ur Squamous Epith Cells (0-4) /hpf Urine Mucus (None) /hpf Blood Type O Positive Blood Type Recheck O Pos Bld Type Recheck Status No Antibody Screen NEGATIVE Spec Expiration Date 12/19/20222314 Disposition Clinical Impression: demise Disposition: ADMITTED IP TO THIS [facility] Condition: Fair Referrals: Teja Engle MD [Primary Care Provider] - 1-2 days Decision Time: 03:27
[2022-12-16 23:29] LABS: Basophils % (A) 0 %; Eosinophils # (A) 0.6 k/uL (0-0.7); Eosinophils % (A) 5 %; HCT 39.3 % (34.0-46.0); Lymphocytes # (A) 2.7 k/uL (1.0-4.8); Lymphocytes % (A) 23 %; MCH 28.9 pg (25.0-35.0); MCHC 33.1 g/dL (31.0-37.0); MCV 87.2 fL (80.0-100.0); Mean Platelet Volume 7.2; Monocytes # (A) 0.6 k/uL (0-1.0); Monocytes % (A) 5 %; Neutrophils # (A) 7.4 k/uL (1.3-7.7); Neutrophils % (A) 65 %; Platelet Count 415 k/uL (150-450); RBC 4.51 m/uL (3.80-5.40); RDW 15.2 % (11.5-15.5); WBC 11.4 k/uL (3.8-10.6)
[2022-12-16 23:38] LABS: African American GFR (CKD) >90 (>60 ml/min/1.73 sqM); Anion Gap 12 mmol/L; Blood Urea Nitrogen 9 mg/dL (7-17); Calcium 10.1 mg/dL (8.4-10.2); Carbon Dioxide 20 mmol/L (22-30); Chloride 102 mmol/L (98-107); Glucose 102 mg/dL (74-99); Non-African American GFR(CKD) >90 (>60 ml/min/1.73 sqM); Potassium 4.4 mmol/L (3.5-5.1); Sodium 134 mmol/L (137-145)
--- NOTE | 2022-12-17 01:04 | US ---
EXAM: US Second or Third Trimester , Transabdominal CLINICAL HISTORY: US Reason: abd pain, bleeding TECHNIQUE: Real-time transabdominal obstetrical ultrasound of the maternal pelvis and a second or third trimester with image documentation. COMPARISON: November 08, 2022 FINDINGS: Fetus: No cardiac motion is present, indicating demise. There is a single intrauterine fetus. Heart rate: None Presentation: Placenta: Not well seen. Amniotic fluid: Unremarkable. Anatomy: Intracranial/face anatomy not seen. Spinal anatomy not seen. Abdominal anatomy not seen. Extremities not seen. Four-chamber heart not seen. Umbilical cord not seen. BIOMETRICS Gestational age: 16 weeks 4 days CHASE: None EFW: The estimated weight is 152 g 23 g, less than second percent based on LMP. BPD: Biparietal diameter 3.28 cm consistent with 16 weeks 2 days. HC: Head circumference 13.17 cm consistent with 16 weeks 6 days. AC: Abdominal circumference 10.88 cm consistent with 16 weeks 6 days. FL: Femur length 1.94 cm consistent with 15 weeks 6 days. MATERNAL: Uterus: Unremarkable. No myometrial mass. Cervix: Unremarkable as visualized. Closed. Free fluid: No free fluid. IMPRESSION: No cardiac motion is present, indicating demise. size consistent with 16 weeks 4 days. <MYCVCSECTION> Communications: 12/17/22 01:06 Call Doctor Regarding Above results, called Dr. Merino on 12/17 01:05 (-04:00)
[2022-12-17 01:36] LABS: Appearance,Urine Cloudy (Clear); Bilirubin,Urine Negative (Negative); Blood,Urine Large (Negative); Color,Urine Light Red; Glucose,Urine (UA) Negative (Negative); Ketones,Urine Negative (Negative); Leukocyte Esterase,Urine Large (Negative); Mucus,Urine Rare /hpf; Nitrite,Urine Negative (Negative); PH, Urine 5.5 (5.0-8.0); Protein,Urine 1+ (Negative); RBC,Urine >182 /hpf (0-5); Specific Gravity,Urine 1.016 (1.001-1.035); Squamous Epithelial Cell,Urine 4 /hpf (0-4); Urobilinogen,Urine <2.0 mg/dL (<2.0); WBC,Urine 36 /hpf (0-5)
[2022-12-17] MEDS ORDERED: NALOXONE 0.4 MG/ML 1 ML VIAL IV PRN (03:24)
[2022-12-17] MEDS ORDERED: SODIUM CHLORIDE 0.9% 1,000 ML IV SCH (03:30)
[2022-12-17] MEDS ORDERED: ACETAMINOPHEN TAB 500 MG TAB PO STA (03:37)
[2022-12-17 03:40] VITALS: RESP 16
[2022-12-17] MEDS ORDERED: NALBUPHINE 10 MG/ML (10 ML MDV) IV PRN (04:54)
[2022-12-17] MEDS ORDERED: ACETAMINOPHEN TAB 325 MG TAB PO PRN ×2 (06:30→13:29)
[2022-12-17] MEDS: DIPHENOX-ATROP 2.5-0.025 MG 1 EACH TAB PO PRN ×2 (06:45→12:16)
[2022-12-17] MEDS ORDERED: LACTATED RINGERS 1,000 ML IV SCH (06:45)
[2022-12-17] MEDS: ONDANSETRON 4 MG/2 ML VIAL IVP PRN ×2 (06:46→12:15)
[2022-12-17] MEDS: CARBOPROST TROMETHAMINE 250 MCG/ML 1 ML AMP IM SCH ×3 (06:48→11:00)
--- NOTE | 2022-12-17 07:28 | P.HPOB ---
History of Present Illness H&P Date: 12/17/22 Chief Complaint: Vaginal bleeding, demise This patient is a pleasant 27-year-old 4 para 3 female estimated date of confinement 05/19/2023 estimated gestational age 18 and one sevenths weeks who presented to the emergency department last evening with complaints of persistent vaginal bleeding. Patient's is been complicated by a large subchorionic bleed that was noted at approximately 13 weeks. This was 5 cm in dimensions. Patient's had brown spotting on and off but states that she began having bright red bleeding last night when she came to the emergency department. Evaluation there demonstrated a demise by ultrasound that measured 16 weeks and 4 days. care otherwise has been uncomplicated. 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, pre eclampsia History of Any Multi-Drug Resistant Organisms: None Reported Past Surgical History: Orthopedic Surgery Additional Past Surgical History / Comment(s): right wrist Past Anesthesia/Blood Transfusion Reactions: No Reported Reaction Past Psychological History: ADD/ADHD, Anxiety, Depression Smoking Status: Never smoker Past Alcohol Use History: None Reported Past Drug Use History: None Reported - Past Family History Mother Family Medical History: Cancer, Hypertension Additional Family Medical History / Comment(s): breast and ovarian cancer Father Family Medical History: No Reported History Sister(s) Additional Family Medical History / Comment(s): DVT and bilateral PEs following delivery Medications and Allergies Home Medications Medication Instructions Recorded Confirmed Type Pnv No.95/Ferrous Fum/Folic AC 1 each PO DAILY 12/17/18 03/06/22 History [ Multivitamin Tablet] Sertraline [Zoloft] 25 mg PO DAILY 07/10/19 03/06/22 History Dextroamphetamine/Amphetamine 50 mg PO 03/06/22 History [Mydayis ER 50 mg Capsule] Metoclopramide [Reglan] 10 mg PO HS 03/06/22 03/06/22 History buPROPion HCL [buPROPion HCL XL] 300 mg PO 03/06/22 History Cephalexin [Keflex] 250 mg PO Q6HR #20 cap 11/09/22 Rx Ondansetron [Zofran] 4 mg PO Q12HR PRN 12/17/22 12/17/22 History Allergies Allergy/AdvReac Type Severity Reaction Status Date / Time Iodinated Contrast Media Allergy Anaphylaxis Verified 12/16/22 22:51 [Iodinated Contrast Media - Oral and] Exam Vital Signs Temp Pulse Pulse Resp BP BP Pulse Ox 12/17/22 04:05 98.3 F 103 H 16 112/75 100 12/17/22 03:38 98.0 F 103 H 16 120/81 100 12/16/22 22:51 98.5 F 121 H 18 134/81 100 Intake and Output 12/16/22 12/17/22 12/17/22 22:59 06:59 14:59 Other: # Voids 1 Weight 75.296 kg 75.296 kg - OBG Physical Exam Abdomen: no diffuse tenderness, no bruit present, no guarding noted, no hepatomegaly, no splenomegaly, no mass Results Result Diagrams: 12/16/22 23:13 12/16/22 23:13 Abnormal Lab Results - Last 24 Hours (Table) 12/16/22 12/16/22 12/16/22 Range/Units 23:13 23:13 23:13 WBC 11.4 H (3.8-10.6) k/uL Sodium 134 L (137-145) mmol/L Carbon Dioxide 20 L (22-30) mmol/L Glucose 102 H (74-99) mg/dL Urine Appearance Cloudy H (Clear) Urine Protein 1+ H (Negative) Urine Blood Large H (Negative) Ur Leukocyte Esterase Large H (Negative) Urine RBC >182 H (0-5) /hpf Urine WBC 36 H (0-5) /hpf Urine Mucus Rare H (None) /hpf Assessment and Plan Assessment: This is a pleasant 27-year-old 4 para 3 female 18 and one sevenths weeks gestation by dates with persistent subchorionic hemorrhaging and now with demise. I discussed options with the patient including going home with expectant management versus proceeding with induction of labor. I also did discuss the option of D and E although we do not do that at this facility. She has elected to proceed with Hemabate induction of labor. Had a long discussion with her and her about this procedure, side effects, risks. All the patient's questions are answered. (1) 18 weeks gestation of Current Visit: Yes Status: Acute Code(s): Z3A.18 - 18 WEEKS GESTATION OF SNOMED Code(s): 01818059 (2) demise Current Visit: Yes Status: Acute Code(s): SDL5039 - SNOMED Code(s): 534260799
[2022-12-17] MEDS ORDERED: METOCLOPRAMIDE 5 MG/ML 2 ML VIAL IVP PRN (07:33)
[2022-12-17] MEDS ORDERED: diphenhydrAMINE 50 MG/ML 1 ML VIAL IVP PRN (13:29)
[2022-12-17] MEDS ORDERED: LANOLIN CREAM 5 GM TUBE TOPICAL PRN (13:29)
[2022-12-17] MEDS ORDERED: diphenhydrAMINE 25 MG CAP PO PRN (13:29)
[2022-12-17] MEDS ORDERED: IBUPROFEN 600 MG TAB PO PRN (13:29)
[2022-12-17] MEDS ORDERED: BENZOCAINE/MENTHOL SPRAY 1 GM/SPRAY AEROSOL TOPICAL PRN (13:29)
[2022-12-17] MEDS ORDERED: SIMETHICONE 80 MG CHEWABLE PO PRN (13:29)
[2022-12-17] MEDS ORDERED: HYDROCORTISONE 2.5% RECTAL CREAM 30 GM TUBE RECTAL PRN (13:29)
--- NOTE | 2022-12-17 13:39 | P.PROBDLV ---
Vaginal Delivery Note - . Vaginal Delivery Note: Please see dictated H&P on this patient's admission. Patient is admitted early this morning with vaginal bleeding and diagnosed with demise at 18 weeks. I discussed options with the patient and she elected to proceed with Hemabate induction of labor. Patient was given 3 doses of Hemabate and after the third dose began cramping and bleeding. Patient then spontaneously delivered a nonviable 18 week size fetus in the presence of the nurse. Delivery time was 1256 hrs. The placenta delivered very soon thereafter and inspection of the placenta shows it to be completely delivered with attached membranes. The fetus showed evidence of degeneration but otherwise grossly appeared normal. This did appear to be a male fetus without any gross defects. The placenta had evidence of the previous mentioned subchorionic hemorrhage. This most likely was the cause of the demise. Inspection of the vagina shows no lacerations and no repairs required patient has minimal bleeding. She'll be watched for a few hours after the medications have worn off and the be allowed to be discharged home if she desires.
--- NOTE | 2022-12-17 13:48 | P.DS ---
Providers Date of admission: 12/17/22 03:25 Expected date of discharge: 12/17/22 Attending physician: Mike Cannon Primary care physician: Teja Engle - Discharge Diagnosis(es) (1) 18 weeks gestation of Current Visit: Yes Status: Acute (2) demise Current Visit: Yes Status: Acute Hospital Course: Please see dictated H&P and delivery note on this patient's admission. Brief summary this is a pleasant 27-year-old 4 para 3 female admitted to the emergency department last evening with vaginal bleeding, known subchorionic hemorrhage, and now with demise. Patient is admitted she is given 3 doses of Hemabate and subsequent was on the delivery of nonviable male fetus. patient did well was felt be stable for discharge home follow up with Dr. Carvajal in 1 week. Procedures: Induction of labor and vaginal delivery. Patient Condition at Discharge: Fair Plan - Discharge Summary New Discharge Prescriptions: New Ibuprofen [Motrin] 600 mg PO Q6HR PRN #40 tab PRN Reason: Mild Pain (Scale 1 To 3) No Action Pnv No.95/Ferrous Fum/Folic AC [ Multivitamin Tablet] 1 each PO DAILY Sertraline [Zoloft] 25 mg PO DAILY Metoclopramide [Reglan] 10 mg PO HS buPROPion HCL [buPROPion HCL XL] 300 mg PO Ondansetron [Zofran] 4 mg PO Q12HR PRN PRN Reason: Nausea Dextroamphetamine/Amphetamine [Mydayis ER 50 mg Capsule] 50 mg PO Cephalexin [Keflex] 250 mg PO Q6HR #20 cap Discharge Medication List Pnv No.95/Ferrous Fum/Folic AC [ Multivitamin Tablet] 1 each PO DAILY 12/17/18 [History] Sertraline [Zoloft] 25 mg PO DAILY 07/10/19 [History] Dextroamphetamine/Amphetamine [Mydayis ER 50 mg Capsule] 50 mg PO 03/06/22 [History] Metoclopramide [Reglan] 10 mg PO HS 03/06/22 [History] buPROPion HCL [buPROPion HCL XL] 300 mg PO 03/06/22 [History] Cephalexin [Keflex] 250 mg PO Q6HR #20 cap 11/09/22 [Rx] Ibuprofen [Motrin] 600 mg PO Q6HR PRN #40 tab 12/17/22 [Rx] Ondansetron [Zofran] 4 mg PO Q12HR PRN 12/17/22 [History] Follow up Appointment(s)/Referral(s): Ashlyn Carvajal DO [Doctor of Osteopathic Medicine] - 1 Week Patient Instructions/Handouts: Miscarriage (DC) Activity/Diet/Wound Care/Special Instructions: No intercourse or anything per vagina for 6 weeks. Please call if any fever, chills, excessive vaginal bleeding, and/or abdominal pain Discharge Disposition: HOME SELF-CARE
[2022-12-17 14:23] VITALS: TEMP 97
[2022-12-17 15:24] VITALS: BP 119/64; PULSE 100
[2022-12-17] MEDS ORDERED: SENNOSIDES-DOCUSATE SODIUM 1 EACH TAB PO SCH (20:00)
== END 2022-12-17 16:00 | disposition home or self-care (01) | DRG 805 ==
LOC: EC 22:49 → 4FBP 12-17 03:25
PROVIDERS: ADMIT Obstetrics & Gynecology; ATTEND Obstetrics & Gynecology
PROC: 10E0XZZ Delivery of Products of Conception, External Approach (ICD-10-PCS; principal; 2022-12-17)
PROC: 3E033VJ Introduction of Other Hormone into Peripheral Vein, Percutaneous Approach (ICD-10-PCS; 2022-12-17)
DX: O20.8 Other hemorrhage in early pregnancy (principal); O67.0 Intrapartum hemorrhage with coagulation defect; Z37.1 Single stillbirth; D68.52 Prothrombin gene mutation; O99.342 Other mental disorders complicating pregnancy, second trimester; F32.A Depression, unspecified; F41.9 Anxiety disorder, unspecified; F90.9 Attention-deficit hyperactivity disorder, unspecified type; Z3A.19 19 weeks gestation of pregnancy; Z91.041 Radiographic dye allergy status; Z87.59 Personal history of other complications of pregnancy, childbirth and the puerperium; Z79.899 Other long term (current) drug therapy; Z80.41 Family history of malignant neoplasm of ovary
CPT/HCPCS: 36415; 76805; 80048; 81001; 85025; 86850; 86900; 86901; 99285

== ENCOUNTER → 2023-04-25 | Outpatient (CLI) | payer MEDICAID ==
--- NOTE | 2023-04-25 14:53 | US ---
EXAMINATION TYPE: US kidneys/renal and bladder DATE OF EXAM: 04/25/2023 COMPARISON: US & CT CLINICAL INDICATION: Female, 27 years old with history of N20.0 CALCULUS OF KIDNEY; Pt states ABD bell n, both sides but more on left side EXAM MEASUREMENTS: Right Kidney: 10.3 x 4.5 x 5.1 cm Left Kidney: 11.1 x 5.6 x 4.9 cm Right Kidney: No hydronephrosis or masses seen Left Kidney: Possible 5mm calculus mid, no evidence of hydro Bladder: wnl Bilateral Jets seen: Only right jet visualized Incidental finding gallstones There is no evidence for hydronephrosis at this point in time. No nephrolithiasis is seen. No radha s are identified. The urinary bladder is anechoic. Bilateral ureteral jets are seen. IMPRESSION: 1. No evidence for acute process. 2. No obstructing right renal calculus versus prominent sinus fat. 3. Cholelithiasis.
== END | disposition home or self-care (01) ==
LOC: RADUSWWP 14:01
PROVIDERS: ATTEND Family Medicine
DX: K80.20 Calculus of gallbladder without cholecystitis without obstruction (principal); N20.0 Calculus of kidney
CPT/HCPCS: 76770

== ENCOUNTER → 2023-05-04 | Outpatient (CLI) | payer MEDICAID ==
[2023-05-05 02:45] LABS: ALT 92 U/L (8-44); AST 57 U/L (13-35); Albumin 4.2 g/dL (3.8-4.9); Albumin/Globulin Ratio 1.62 Ratio (1.60-3.17); Alkaline Phosphatase 118 U/L (41-126); BUN/Creat Ratio 12.86 Ratio (12.00-20.00); Carbon Dioxide 20.6 mmol/L (21.6-31.8); Chloride 101 mmol/L (96-109); Globulin 2.6 g/dL (1.6-3.3); Glucose 105 mg/dL (70-110); Potassium 3.8 mmol/L (3.5-5.5); Sodium 135 mmol/L (135-145); Total Bilirubin 0.3 mg/dL (0.3-1.2); Total Protein 6.8 g/dL (6.2-8.2)
[2023-05-05 03:04] LABS: Basophils # (A) 0.04 X 10*3/uL (0.00-0.10); Basophils % (A) 0.3 %; Eosinophils # (A) 0.01 X 10*3/uL (0.04-0.35); Eosinophils % (A) 0.1 %; HCT 38.6 % (37.2-46.3); HGB 12.3 g/dL (12.0-15.0); Lymphocytes # (A) 1.06 X 10*3/uL (0.90-5.00); Lymphocytes % (A) 7.1 %; MCHC 31.9 g/dL (32.0-37.0); MCV 87.7 FL (80.0-97.0); Mean Platelet Volume 9.4 FL (9.5-12.2); Monocytes # (A) 1.04 X 10*3/uL (0.20-1.00); Monocytes % (A) 6.9 %; NRBC Per 100 WBC 0 X 10*3/uL (0.00-0.01); Neutrophils # (A) 12.76 X 10*3/uL (1.80-7.70); Neutrophils % (A) 85.2 %; Platelet Count 373 X 10*3/uL (140-440); RDW 14.9 % (11.5-14.5); WBC 14.97 X 10*3/uL (4.50-10.00)
== END | disposition home or self-care (01) ==
LOC: LABWHC1 15:37
PROVIDERS: ATTEND Family Medicine
DX: M79.10 Myalgia, unspecified site (principal); R10.9 Unspecified abdominal pain; R68.83 Chills (without fever)
CPT/HCPCS: 36415; 80053; 85025; 87502; 87635

== ENCOUNTER 2023-05-05 13:41 | Inpatient (IN) | payer MEDICAID ==
[2023-05-05] MEDS: SODIUM CHLORIDE 0.9% 1,000 ML IV STA ×2 (14:14→17:17)
[2023-05-05] MEDS: ACETAMINOPHEN TAB 325 MG TAB PO STA (14:15)
[2023-05-05] MEDS: KETOROLAC 15 MG/ML 1 ML VIAL IVP STA (14:15)
--- NOTE | 2023-05-05 14:21 | ED ---
Fever HPI - General Chief Complaint: Fever Stated Complaint: Fever, abd pain,nausea Time Seen by Provider: 05/05/23 13:55 Source: patient, RN notes reviewed Mode of arrival: ambulatory Limitations: no limitations - History of Present Illness Initial Comments: This is a 27 year old female who presents to the emergency department for a fever. States that this started 3 days ago. States that she has generalized bodyaches as well as pain in the back and abdomen. The back and abdominal pain are diffuse and she cannot localize it anywhere in particular. She has mild nausea but no vomiting. Denies any coughing, congestion, chest pain, or shortness of breath. She did have an outpatient ultrasound about 10 days ago due to abdominal pain, and was told that she had kidney stones and gallstones. She did also recently have lab work done, and tested negative for COVID. However, influenza testing was not done. MD Complaint: fever - Related Data Home Medications Medication Instructions Recorded Confirmed Pnv No.95/Ferrous Fum/Folic AC 1 tab PO DAILY 12/17/18 05/05/23 [ Multivitamin Tablet] Sertraline [Zoloft] 50 mg PO HS 07/10/19 05/05/23 buPROPion HCL [buPROPion HCL XL] 300 mg PO DAILY 03/06/22 05/05/23 ALPRAZolam [Xanax] 0.5 mg PO HS 05/05/23 05/05/23 Dextroamphetamine/Amphetamine 30 mg PO BID 05/05/23 05/05/23 [Adderall] Allergies Allergy/AdvReac Type Severity Reaction Status Date / Time Iodinated Contrast Media Allergy Anaphylaxis Verified 05/05/23 17:27 [Iodinated Contrast Media - Oral and] Review of Systems ROS Statement: Those systems with pertinent positive or pertinent negative responses have been documented in the HPI. ROS Other: All systems not noted in ROS Statement are negative. Past Medical History Past Medical History: Asthma Additional Past Medical History / Comment(s): postural orthostatic tachycaria syndrome, kidney stone, heterozygous for prothrombin [id number] Gene mutation, pre eclampsia History of Any Multi-Drug Resistant Organisms: None Reported Past Surgical History: Orthopedic Surgery Additional Past Surgical History / Comment(s): right wrist Past Anesthesia/Blood Transfusion Reactions: No Reported Reaction Past Psychological History: ADD/ADHD, Anxiety, Depression Smoking Status: Never smoker Past Alcohol Use History: None Reported Past Drug Use History: None Reported - Past Family History Mother Family Medical History: Cancer, Hypertension Additional Family Medical History / Comment(s): breast and ovarian cancer Father Family Medical History: No Reported History Sister(s) Additional Family Medical History / Comment(s): DVT and bilateral PEs following delivery General Exam Limitations: no limitations General appearance: alert, in no apparent distress Head exam: Present: atraumatic, normocephalic, normal inspection Respiratory exam: Present: normal lung sounds bilaterally. Absent: respiratory distress, wheezes, rales, rhonchi, stridor Cardiovascular Exam: Present: regular rate, normal rhythm, normal heart sounds. Absent: systolic murmur, diastolic murmur, rubs, gallop, clicks GI/Abdominal exam: Present: soft, normal bowel sounds. Absent: distended, tenderness, guarding, rebound, rigid Back exam: Absent: CVA tenderness (R), CVA tenderness (L) Neurological exam: Present: alert, oriented X3, CN II-XII intact Psychiatric exam: Present: normal affect, normal mood Skin exam: Present: warm, dry, intact, normal color. Absent: rash Course Vital Signs 05/05/23 05/05/23 05/05/23 13:48 16:10 17:17 Temperature 102.9 F H 97.8 F Pulse Rate 103 H 115 H 115 H Respiratory 20 20 22 Rate Blood Pressure 151/80 120/66 109/78 O2 Sat by Pulse 98 98 98 Oximetry 05/05/23 18:34 Temperature Pulse Rate 103 H Respiratory 18 Rate Blood Pressure 109/84 O2 Sat by Pulse 97 Oximetry Medical Decision Making - Medical Decision Making This is a 27 year old female who presents to the emergency department for a fever. Was pt. sent in by a medical professional or institution? @ -No Did you speak to anyone other than the patient for history? @ -No Did you review nursing and triage notes? @ -Yes, and I agree, it is accurate with regards to the patient's symptoms. Were old charts reviewed? @ -US of the abdomen and bladder from 04/25/23 demonstrating cholelithiasis and a calculus in the left kidney without hydronephrosis. No acute process was identified. Differential Diagnosis? @ -Differential Fever: Pneumonia, viral URI, endocarditis, myocarditis, pericarditis, otitis, sinusitis, peritonsillar Abscess, retropharyngeal Abscess, epiglottitis, peritonitis, appendicitis, Deborah cystitis, diverticulitis, hepatitis, colitis, UTI, PID, TOA, pyelonephritis, prostatitis, epididymitis, meningitis, encephalitis, pulmonary embolism, CVA, thyroid storm, pancreatitis, adrenal crisis, cavernous sinus thrombosis, this is not meant to be an all-inclusive list. EKG interpreted by me (3pts min.)? @ -EKG interpreted by me demonstrating the following: Sinus tachycardia. Ventricular rate 122 BPM, ME interval 112 ms, QRS duration 98 ms, QTc 373 ms. X-rays interpreted by me (1pt min.)? @ -Not obtained CT interpreted by me (1pt min.)? @ -CT scan of the abdomen and pelvis obtained. My interpretation identifies no evidence of bowel wall thickening or free air. U/S interpreted by me (1pt. min.)? @ -Gallbladder US obtained. My interpretation identifies cholelithiasis. US of the kidneys/renal and bladder obtained. My interpretation identifies a right renal stone. What testing was considered but not performed? (CT, X-rays, U/S, labs)? Why? @ -None What meds were considered but not given? Why? @ -None Did you discuss the management of the patient with other professionals? @ -Yes, Nelly Stein, with [facility], who accepts the patient for admission. Did you reconcile home meds? @ -No Was smoking cessation discussed for >3mins.? @ -No Was critical care preformed (if so, how long)? @ -No Were there social determinants of health that impacted care today? How? (Homelessness, low income, unemployed, alcoholism, drug addiction, transportation, low edu. Level, literacy, decrease access to med. care, prison, rehab)? @ -No Was there de-escalation of care discussed even if they declined? (Discuss DNR or withdrawal of care, Hospice)? @ -No What co-morbidities impacted this encounter? (DM, HTN, Smoking, COPD, CAD, Cancer, CVA, Hep., AIDS, mental health diagnosis, sleep apnea, morbid obesity)? @ -None Was patient admitted / discharged? @ -Admitted. Patient had a temperature of 102.9 F on arrival. She was treated with IV fluids, Toradol, and Tylenol. Lab work demonstrates leukocytosis and mild transaminitis. COVID, influenza, and RSV testing negative. Urinalysis consistent with infection. Patient met septic criteria at 1520 when the urine returned positive as being the source of infection. Patient meets SIRS criteria based on leukocytosis, tachycardia, and fever. Blood and urine cultures obtained and she was given 2g of Ceftriaxone. Additional 2L bolus of IV fluids administered to meet 30-40 mL/kg fluid requirement and maintenance fluids were initiated. Gallbladder ultrasound demonstrates cholelithiasis without acute process. Ultrasound of the kidneys, ureter, and bladder obtained. She was found to have very mild hydronephrosis, however the calculus was said to be in t he kidney, not the ureter. CT scan of the abdomen and pelvis was subsequently obtained. This identified bilateral nonobstructing calculi without hydronephrosis. Patient admitted to medicine for UTI with sepsis. Consult placed for ID. Undiagnosed new problem with uncertain prognosis? @ -None Drug Therapy requiring intensive monitoring for toxicity (Heparin, Nitro, Insulin, Cardizem)? @ -None Were any procedures done? @ -None Diagnosis/symptom? @ -UTI, Sepsis Acute, or Chronic, or Acute on Chronic? @ -Acute Uncomplicated (without systemic symptoms) or Complicated (systemic symptoms)? @ -Complicated Side effects of treatment? @ -None Exacerbation, Progression, or Severe Exacerbation] @ -Not applicable Poses a threat to life or bodily function? @ -Yes This case was discussed in detail with the attending ED physician, Dr. Sandoval. Presentation, findings, and treatment plan discussed in detail as well. - Lab Data Result diagrams: 05/05/23 14:16 05/05/23 14:16 Lab Results 05/05/23 05/05/23 05/05/23 Range/Units 14:16 14:16 14:16 WBC 19.8 H (3.8-10.6) k/uL RBC 4.34 (3.80-5.40) m/uL Hgb 12.4 (11.4-16.0) gm/dL Hct 37.9 (34.0-46.0) % MCV 87.2 (80.0-100.0) fL MCH 28.5 (25.0-35.0) pg MCHC 32.7 (31.0-37.0) g/dL RDW 14.5 (11.5-15.5) % Plt Count 357 (150-450) k/uL MPV 8.0 Neutrophils % 88 % Lymphocytes % 4 % Monocytes % 6 % Eosinophils % 1 % Basophils % 0 % Neutrophils # 17.5 H (1.3-7.7) k/uL Lymphocytes # 0.8 L (1.0-4.8) k/uL Monocytes # 1.1 H (0-1.0) k/uL Eosinophils # 0.1 (0-0.7) k/uL Basophils # 0.0 (0-0.2) k/uL Sodium 138 (137-145) mmol/L Potassium 4.3 (3.5-5.1) mmol/L Chloride 109 H (98-107) mmol/L Carbon Dioxide 18 L (22-30) mmol/L Anion Gap 11 mmol/L BUN 8 (7-17) mg/dL Creatinine 0.54 (0.52-1.04) mg/dL Est GFR (CKD-EPI)AfAm >90 (>60 ml/min/1.73 sqM) Est GFR (CKD-EPI)NonAf >90 (>60 ml/min/1.73 sqM) Glucose 113 H (74-99) mg/dL Plasma Lactic Acid James (0.7-2.0) mmol/L Calcium 9.3 (8.4-10.2) mg/dL Total Bilirubin 0.6 (0.2-1.3) mg/dL AST 53 H (14-36) U/L ALT 88 H (4-34) U/L Alkaline Phosphatase 158 H (38-126) U/L Total Protein 6.4 (6.3-8.2) g/dL Albumin 3.6 (3.5-5.0) g/dL Amylase 44 (30-110) U/L Lipase 20 L (23-300) U/L Urine Color Yellow Urine Appearance Cloudy H (Clear) Urine pH 6.0 (5.0-8.0) Ur Specific [place] 1.021 (1.001-1.035) Urine Protein 1+ H (Negative) Urine Glucose (UA) Negative (Negative) Urine Ketones Negative (Negative) Urine Blood Large H (Negative) Urine Nitrite Positive H (Negative) Urine Bilirubin Negative (Negative) Urine Urobilinogen <2.0 (<2.0) mg/dL Ur Leukocyte Esterase Large H (Negative) Urine RBC 67 H (0-5) /hpf Urine WBC >182 H (0-5) /hpf Urine WBC Clumps Occasional H (None) /hpf Ur Squamous Epith Cells 2 (0-4) /hpf Urine Bacteria Moderate H (None) /hpf Urine HCG, Qual (Not Detectd) Influenza Type A (PCR) (Not Detectd) Influenza Type B (PCR) (Not Detectd) RSV (PCR) (Not Detectd) SARS-CoV-2 (PCR) (Not Detectd) 05/05/23 05/05/23 05/05/23 Range/Units 14:16 14:16 14:16 WBC (3.8-10.6) k/uL RBC (3.80-5.40) m/uL Hgb (11.4-16.0) gm/dL Hct (34.0-46.0) % MCV (80.0-100.0) fL MCH (25.0-35.0) pg MCHC (31.0-37.0) g/dL RDW (11.5-15.5) % Plt Count (150-450) k/uL MPV Neutrophils % % Lymphocytes % % Monocytes % % Eosinophils % % Basophils % % Neutrophils # (1.3-7.7) k/uL Lymphocytes # (1.0-4.8) k/uL Monocytes # (0-1.0) k/uL Eosinophils # (0-0.7) k/uL Basophils # (0-0.2) k/uL Sodium (137-145) mmol/L Potassium (3.5-5.1) mmol/L Chloride (98-107) mmol/L Carbon Dioxide (22-30) mmol/L Anion Gap mmol/L BUN (7-17) mg/dL Creatinine (0.52-1.04) mg/dL Est GFR (CKD-EPI)AfAm (>60 ml/min/1.73 sqM) Est GFR (CKD-EPI)NonAf (>60 ml/min/1.73 sqM) Glucose (74-99) mg/dL Plasma Lactic Acid James 1.0 (0.7-2.0) mmol/L Calcium (8.4-10.2) mg/dL Total Bilirubin (0.2-1.3) mg/dL AST (14-36) U/L ALT (4-34) U/L Alkaline Phosphatase (38-126) U/L Total Protein (6.3-8.2) g/dL Albumin (3.5-5.0) g/dL Amylase (30-110) U/L Lipase (23-300) U/L Urine Color Urine Appearance (Clear) Urine pH (5.0-8.0) Ur Specific [place] (1.001-1.035) Urine Protein (Negative) Urine Glucose (UA) (Negative) Urine Ketones (Negative) Urine Blood (Negative) Urine Nitrite (Negative) Urine Bilirubin (Negative) Urine Urobilinogen (<2.0) mg/dL Ur Leukocyte Esterase (Negative) Urine RBC (0-5) /hpf Urine WBC (0-5) /hpf Urine WBC Clumps (None) /hpf Ur Squamous Epith Cells (0-4) /hpf Urine Bacteria (None) /hpf Urine HCG, Qual Not Detected (Not Detectd) Influenza Type A (PCR) Not Detected (Not Detectd) Influenza Type B (PCR) Not Detected (Not Detectd) RSV (PCR) Not Detected (Not Detectd) SARS-CoV-2 (PCR) Not Detected (Not Detectd) - Radiology Data Radiology results: report reviewed, image reviewed Disposition Clinical Impression: UTI (urinary tract infection), Sepsis Disposition: ADMITTED IP TO THIS [facility] Time of Disposition: 16:37
[2023-05-05 14:52] LABS: ALT 88 U/L (4-34); AST 53 U/L (14-36); African American GFR (CKD) >90 (>60 ml/min/1.73 sqM); Albumin 3.6 g/dL (3.5-5.0); Alkaline Phosphatase 158 U/L (38-126); Amylase 44 U/L (30-110); Anion Gap 11 mmol/L; Blood Urea Nitrogen 8 mg/dL (7-17); Calcium 9.3 mg/dL (8.4-10.2); Carbon Dioxide 18 mmol/L (22-30); Chloride 109 mmol/L (98-107); Glucose 113 mg/dL (74-99); Lipase 20 U/L (23-300); Non-African American GFR(CKD) >90 (>60 ml/min/1.73 sqM); Potassium 4.3 mmol/L (3.5-5.1); Sodium 138 mmol/L (137-145); Total Bilirubin 0.6 mg/dL (0.2-1.3); Total Protein 6.4 g/dL (6.3-8.2)
[2023-05-05 15:06] LABS: Basophils % (A) 0 %; Eosinophils # (A) 0.1 k/uL (0-0.7); Eosinophils % (A) 1 %; HCT 37.9 % (34.0-46.0); HGB 12.4 gm/dL (11.4-16.0); Lymphocytes # (A) 0.8 k/uL (1.0-4.8); Lymphocytes % (A) 4 %; MCH 28.5 pg (25.0-35.0); MCHC 32.7 g/dL (31.0-37.0); MCV 87.2 fL (80.0-100.0); Monocytes # (A) 1.1 k/uL (0-1.0); Monocytes % (A) 6 %; Neutrophils # (A) 17.5 k/uL (1.3-7.7); Neutrophils % (A) 88 %; Platelet Count 357 k/uL (150-450); RBC 4.34 m/uL (3.80-5.40); RDW 14.5 % (11.5-15.5); WBC 19.8 k/uL (3.8-10.6)
[2023-05-05 15:11] LABS: Appearance,Urine Cloudy (Clear); Bacteria,Urine Moderate /hpf; Bilirubin,Urine Negative (Negative); Blood,Urine Large (Negative); Color,Urine Yellow; Glucose,Urine (UA) Negative (Negative); Ketones,Urine Negative (Negative); Leukocyte Esterase,Urine Large (Negative); Nitrite,Urine Positive (Negative); Protein,Urine 1+ (Negative); RBC,Urine 67 /hpf (0-5); Specific Gravity,Urine 1.021 (1.001-1.035); Squamous Epithelial Cell,Urine 2 /hpf (0-4); Urobilinogen,Urine <2.0 mg/dL (<2.0); WBC,Urine >182 /hpf (0-5)
[2023-05-05] MEDS: SODIUM CHLORIDE 0.9% 2,000 ML IV STA (16:09)
--- NOTE | 2023-05-05 16:24 | US ---
EXAMINATION TYPE: US gallbladder DATE OF EXAM: 05/05/2023 COMPARISON: US 2023 CLINICAL INDICATION: Female, 27 years old with history of RUQ pain; TECHNIQUE: Multiple sonographic images of the right upper quadrant are obtained. FINDINGS: EXAM MEASUREMENTS: Liver Length: 19.4 cm Gallbladder Wall: 0.2 cm CBD: 0.4 cm Pancreas: visualized portions wnl, limited by overlying midline bowel gas Liver: enlarged Gallbladder: cholelithiasis Evidence for sonographic Navas's sign: no CBD: visualized portions wnl, limited by overlying bowel gas Right Kidney: imaged with renal ultrasound same day IMPRESSION: 1. Cholelithiasis. 2. Hepatomegaly
--- NOTE | 2023-05-05 16:30 | US ---
EXAMINATION TYPE: US kidneys/renal and bladder DATE OF EXAM: 05/05/2023 COMPARISON: US 2023 CLINICAL INDICATION: Female, 27 years old with history of Right flank pain; EXAM MEASUREMENTS: Right Kidney: 12.4 x 5.9 x 5.3 cm Left Kidney: 12.6 x 6.3 x 5.9 cm Right Kidney: 0.4cm echogenic focus superior pole mild central pelvocaliectasis. Left Kidney: wnl Bladder: wnl Bilateral Jets seen: yes IMPRESSION: 1. There is a 4 mm right renal calculus with very mild hydronephrosis..
[2023-05-05] MEDS ORDERED: ONDANSETRON 4 MG/2 ML VIAL IVP PRN (16:39)
[2023-05-05] MEDS ORDERED: NALOXONE 0.4 MG/ML 1 ML VIAL IV PRN (16:39)
--- NOTE | 2023-05-05 16:55 | CT ---
EXAMINATION TYPE: CT abdomen pelvis wo con DATE OF EXAM: 05/05/2023 COMPARISON: 09/21/2017 HISTORY: bilateral flank pain CT DLP: 539.6 mGycm Automated exposure control for dose reduction was used. TECHNIQUE: Helical acquisition of images was performed from the lung bases through the pelvis. FINDINGS: The lungs are clear. Gallbladder is normal and there is no gallstone, wall thickening, pericholecystic fluid or distention . There is no biliary ductal dilatation. There is no organomegaly of the liver, pancreas, spleen or adrenal glands. Since the prior study there is been interval development of a 5 mm nonobstructing right renal calculu s and a 5.8 mm nonobstructing left renal calculus. There is an additional additional adjacent gabino-l trav calcification within the left kidney. The caliber of the abdominal aorta is normal and there is no retroperitoneal adenopathy or hemorrhage . The bowel loops are normal in caliber is no evidence of obstruction. No inflammatory changes are iden tified in the mesentery and there is no free intraperitoneal air or fluid. There is no pelvic mass, free fluid, abscess or adenopathy. There is mild diverticulosis of the colon without CT evidence of diverticulitis. The osseous structures and soft tissues are unremarkable. IMPRESSION: Bilateral single nonobstructing renal calcifications with no other significant amount is seen.
[2023-05-05] MEDS: cefTRIAXone IN SWFI 1,000 MG/10 ML SYRINGE IVP STA (17:16)
[2023-05-05] MEDS: MORPHINE SULFATE 4 MG/ML SYRINGE IV PRN (18:58)
[2023-05-05] MEDS: ACETAMINOPHEN TAB 325 MG TAB PO PRN (19:42)
[2023-05-05] MEDS: NON FORMULARY DRUG (Dextroamphetamine/Amphetamine [Adderall] 30 MG Tablet) PO SCH (19:50)
[2023-05-05] MEDS: SERTRALINE 50 MG TAB PO SCH (20:04)
[2023-05-05] MEDS: ALPRAZolam 0.5 MG TAB PO SCH (20:04)
[2023-05-05] MEDS: KETOROLAC 15 MG/ML 1 ML VIAL IVP PRN (23:53)
[2023-05-06] MEDS: HYDROmorphone 0.5 MG/0.5 ML SYRINGE IVP PRN (04:50)
[2023-05-06] MEDS: buPROPion XL 300 MG TAB.ER.24H PO SCH (08:25)
[2023-05-06] MEDS ORDERED: [UNRECOGNIZED DRUG - REMARK] PO SCH (09:00)
[2023-05-06 09:40] LABS: HCT 30.7 % (37.2-46.3); MCH 27.8 pg (27.0-32.0); MCHC 32.6 g/dL (32.0-37.0); MCV 85.3 FL (80.0-97.0); Mean Platelet Volume 9.6 FL (9.5-12.2); NRBC Per 100 WBC 0 X 10*3/uL (0.00-0.01); Platelet Count 356 X 10*3/uL (140-440); RDW 15.2 % (11.5-14.5); WBC 17.21 X 10*3/uL (4.50-10.00)
[2023-05-06 10:05] LABS: BUN/Creat Ratio <7.00 Ratio (12.00-20.00); Blood Urea Nitrogen <3.5 mg/dL (9.0-27.0); Calcium 8.6 mg/dL (8.7-10.3); Chloride 102 mmol/L (96-109); Glucose 115 mg/dL (70-110); Sodium 134 mmol/L (135-145)
[2023-05-06 11:37] LABS: Basophils # (A) 0.03 X 10*3/uL (0.00-0.10); Basophils % (A) 0.2 %; Eosinophils # (A) 0.04 X 10*3/uL (0.04-0.35); Eosinophils % (A) 0.2 %; Lymphocytes # (A) 1.97 X 10*3/uL (0.90-5.00); Lymphocytes % (A) 11.4 %; Monocytes # (A) 1.99 X 10*3/uL (0.20-1.00); Monocytes % (A) 11.6 %; Neutrophils # (A) 13.07 X 10*3/uL (1.80-7.70); RBC Morphology Normal (Normal)
--- NOTE | 2023-05-06 14:18 | PN ---
PROGRESS NOTE DATE OF SERVICE: 05/06/2023 CHIEF COMPLAINT: Abdominal pain, fever, and nausea. HISTORY OF PRESENT ILLNESS: This is a 27-year-old woman with a past medical history of multiple medical problems including history of asthma, also had history of renal stones. 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 The patient is complaining of flank pain, treated already in the outpatient setting, but last night, the patient had multiple symptoms including fever, weakness, and the patient came to [facility] for further evaluation and treatment. Recent COVID testing was negative. White count is 17.21, UTI suspected and the patient was evaluated for treatment. There is no history of fever, rigors, chills at this time. PAST MEDICAL HISTORY: Reviewed include asthma, orthostatic tachycardia, ADD, ADHD, anxiety. Rest of the history and rest of the chart is also reviewed. HOME MEDICATIONS: Bupropion, dose and rest of medications noted. ALLERGIES: Iodinated contrast. FAMILY HISTORY: Cancer, hypertension. SOCIAL HISTORY: No history of smoking or alcohol. REVIEW OF SYSTEMS: Fourteen-point review is negative as mentioned. PHYSICAL EXAMINATION: VITAL SIGNS: Pulse is 139, blood pressure 106/70, respirations 20. HEENT: Conjunctivae normal. NECK: No jugular venous distention. RESPIRATION: Base. No rhonchi, no crackles. ABDOMEN: Soft, mild diffuse tenderness present. No guarding. No rigidity. No mass palpable. Bowel sounds present. No ascites. LEGS: No edema, no swelling. NERVOUS SYSTEM: No focal deficit. SKIN: No ulcer, rash, bleeding. JOINTS: No active deforming arthropathy. LABORATORY DATA: WBC 17.2. Rest of the labs are noted. The patient also had a CT of the abdomen which showed bilateral single nonobstructing renal calcification with no significant amount. ASSESSMENT: 1. Possible urinary tract infection with sepsis. 2. Bilateral renal calculus with pain. 3. History of cholelithiasis. 4. History of asthma. 5. History of postural orthostatic tachycardia syndrome. 6. 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 7. History of preeclampsia. 8. History of attention deficit disorder, attention deficit hyperactive disorder, anxiety. 9. Depression. RECOMMENDATIONS AND DISCUSSION: This 27-year-old woman presented with multiple complex medical issues. We will monitor the patient closely. I would recommend continue the current medications. Continue the antibiotics. Otherwise, recommend Infectious Disease evaluation. Obtain cultures. Repeat labs. Prognosis guarded because of multiple complex medical issues and further recommendations. We will see order for details. MMODL / IJN: [id number] /
[2023-05-06] MEDS: SODIUM CHLORIDE 0.9% 1,000 ML IV SCH (14:25)
[2023-05-06] MEDS: ENOXAPARIN 40 MG/0.4 ML SYRINGE SQ SCH (14:26)
[2023-05-06] MEDS: HYDROcodone/APAP 5-325MG 1 EACH TAB PO PRN (17:53)
[2023-05-06] MEDS: IBUPROFEN 400 MG TAB PO PRN (20:27)
--- NOTE | 2023-05-06 23:04 | P.CONS ---
History of Present Illness - Reason for Consult Consult date: 05/06/23 - History of Present Illness Patient is a 27-year-old female with a past medical history significant for asthma presenting to the hospital for evaluation of fever along with generalized bodyaches as well as pain in the back and this patient symptom has been going on for about 3 days before presentation to the hospital patient did have mild nausea but no vomiting and denies having any URI symptoms no chest pain shortness of breath or cough patient thought she did have a flu with the symptoms the patient presented to the hospital on arrival to the ER the patient was febrile with a temperature of 102.9 F patient was tachycardic but not hypotensive or hypoxic and no need for supplemental oxygen did have a white count of 19.8 with a left shift creatinine was 0.54 liver enzymes mildly elevated urine has been positive influenza RSV COVID testing was negative patient did have a abdominal pelvis CT bilateral nonobstructing renal calcification abdominal bladder ultrasound 4 mm right renal calculus with mild hydronephrosis patient was started on Rocephin infectious disease was consulted for further management of antibiotic therapy Past Medical History Past Medical History: Asthma Additional Past Medical History / Comment(s): postural orthostatic tachycaria syndrome, kidney stone, heterozygous for prothrombin [id number] Gene mutation, pre eclampsia History of Any Multi-Drug Resistant Organisms: None Reported Past Surgical History: Orthopedic Surgery Additional Past Surgical History / Comment(s): right wrist Past Anesthesia/Blood Transfusion Reactions: No Reported Reaction Past Psychological History: ADD/ADHD, Anxiety, Depression Smoking Status: Never smoker Past Alcohol Use History: None Reported Past Drug Use History: None Reported - Past Family History Mother Family Medical History: Cancer, Hypertension Additional Family Medical History / Comment(s): breast and ovarian cancer Father Family Medical History: No Reported History Sister(s) Additional Family Medical History / Comment(s): DVT and bilateral PEs following delivery Medications and Allergies Home Medications Medication Instructions Recorded Confirmed Type Pnv No.95/Ferrous Fum/Folic AC 1 tab PO DAILY 12/17/18 05/05/23 History [ Multivitamin Tablet] Sertraline [Zoloft] 50 mg PO HS 07/10/19 05/05/23 History buPROPion HCL [buPROPion HCL XL] 300 mg PO DAILY 03/06/22 05/05/23 History ALPRAZolam [Xanax] 0.5 mg PO HS 05/05/23 05/05/23 History Dextroamphetamine/Amphetamine 30 mg PO BID 05/05/23 05/05/23 History [Adderall] Allergies Allergy/AdvReac Type Severity Reaction Status Date / Time Iodinated Contrast Media Allergy Anaphylaxis Verified 05/05/23 17:27 [Iodinated Contrast Media - Oral and] Physical Exam Vitals: Vital Signs Temp Pulse Pulse Resp BP BP Pulse Ox 05/06/23 07:50 98.9 F 58 L 18 119/70 99 05/06/23 01:05 99.0 F 139 H 20 106/71 99 05/05/23 19:09 97.7 F 113 H 20 124/84 99 05/05/23 18:34 103 H 18 109/84 97 05/05/23 17:17 115 H 22 109/78 98 05/05/23 16:10 97.8 F 115 H 20 120/66 98 05/05/23 13:48 102.9 F H 103 H 20 151/80 98 Intake and Output 05/05/23 05/06/23 05/06/23 22:59 06:59 14:59 Other: Voiding Method Toilet Toilet # Voids 2 Weight 83.5 kg Results CBC & Chem 7: 05/06/23 05:51 05/06/23 05:51 Labs: Abnormal Lab Results - Last 24 Hours (Table) 05/05/23 05/05/23 05/05/23 Range/Units 14:16 14:16 14:16 WBC 19.8 H (3.8-10.6) k/uL RBC (4.10-5.20) X 10*6/uL Hgb (12.0-15.0) g/dL Hct (37.2-46.3) % RDW (11.5-14.5) % Immature Gran # (0.00-0.04) X 10*3/uL Neutrophils # 17.5 H (1.3-7.7) k/uL Lymphocytes # 0.8 L (1.0-4.8) k/uL Monocytes # 1.1 H (0-1.0) k/uL Sodium (135-145) mmol/L Chloride 109 H (98-107) mmol/L Carbon Dioxide 18 L (22-30) mmol/L BUN (9.0-27.0) mg/dL Creatinine (0.6-1.5) mg/dL BUN/Creatinine Ratio (12.00-20.00) Ratio Glucose 113 H (74-99) mg/dL Calcium (8.7-10.3) mg/dL AST 53 H (14-36) U/L ALT 88 H (4-34) U/L Alkaline Phosphatase 158 H (38-126) U/L Lipase 20 L (23-300) U/L Urine Appearance Cloudy H (Clear) Urine Protein 1+ H (Negative) Urine Blood Large H (Negative) Urine Nitrite Positive H (Negative) Ur Leukocyte Esterase Large H (Negative) Urine RBC 67 H (0-5) /hpf Urine WBC >182 H (0-5) /hpf Urine WBC Clumps Occasional H (None) /hpf Urine Bacteria Moderate H (None) /hpf 05/06/23 05/06/23 Range/Units 05:51 05:51 WBC 17.21 H (3.8-10.6) k/uL RBC 3.60 L (4.10-5.20) X 10*6/uL Hgb 10.0 L (12.0-15.0) g/dL Hct 30.7 L (37.2-46.3) % RDW 15.2 H (11.5-14.5) % Immature Gran # 0.11 H (0.00-0.04) X 10*3/uL Neutrophils # 13.07 H (1.3-7.7) k/uL Lymphocytes # (1.0-4.8) k/uL Monocytes # 1.99 H (0-1.0) k/uL Sodium 134 L (135-145) mmol/L Chloride (98-107) mmol/L Carbon Dioxide 20.0 L (22-30) mmol/L BUN <3.5 L (9.0-27.0) mg/dL Creatinine 0.5 L (0.6-1.5) mg/dL BUN/Creatinine Ratio <7.00 L (12.00-20.00) Ratio Glucose 115 H (74-99) mg/dL Calcium 8.6 L (8.7-10.3) mg/dL AST (14-36) U/L ALT (4-34) U/L Alkaline Phosphatase (38-126) U/L Lipase (23-300) U/L Urine Appearance (Clear) Urine Protein (Negative) Urine Blood (Negative) Urine Nitrite (Negative) Ur Leukocyte Esterase (Negative) Urine RBC (0-5) /hpf Urine WBC (0-5) /hpf Urine WBC Clumps (None) /hpf Urine Bacteria (None) /hpf Assessment and Plan Plan: 1patient presented to hospital with sepsis in this patient who did have fever tachycardia elevated white count did have significantly positive UA source is likely complicated UTI and pyelonephritis as the patient did have a 4 mm renal stone on the right side with mild hydronephrosis patient also have elevated liver enzymes ultrasound abdomen did not show any features suggestive of cholecystitis 2-Rocephin 2 g daily while waiting for the culture to finalize 3-check hepatitis panel 4-gentle IV fluid We will follow on clinical condition and cultures to further adjust medication if needed Thank you for this consultation we will follow the patient along with you Dictation was produced using [email or web address] dictation software. please excuse any grammatical, word or spelling errors. Time with Patient: Greater than 30
[2023-05-07 08:10] LABS: African American GFR (CKD) >90 (>60 ml/min/1.73 sqM); Anion Gap 10 mmol/L; Basophils % (A) 0 %; Blood Urea Nitrogen 4 mg/dL (7-17); Calcium 8.8 mg/dL (8.4-10.2); Carbon Dioxide 20 mmol/L (22-30); Chloride 107 mmol/L (98-107); Eosinophils # (A) 0.1 k/uL (0-0.7); Eosinophils % (A) 1 %; Glucose 100 mg/dL (74-99); HCT 30.5 % (34.0-46.0); HGB 10.2 gm/dL (11.4-16.0); Lymphocytes # (A) 2.2 k/uL (1.0-4.8); Lymphocytes % (A) 16 %; MCH 29.4 pg (25.0-35.0); MCHC 33.4 g/dL (31.0-37.0); MCV 88.2 fL (80.0-100.0); Mean Platelet Volume 8.1; Monocytes # (A) 1.1 k/uL (0-1.0); Monocytes % (A) 8 %; Neutrophils # (A) 9.7 k/uL (1.3-7.7); Neutrophils % (A) 71 %; Non-African American GFR(CKD) >90 (>60 ml/min/1.73 sqM); Platelet Count 370 k/uL (150-450); Potassium 4.1 mmol/L (3.5-5.1); RBC 3.46 m/uL (3.80-5.40); RDW 14.7 % (11.5-15.5); Sodium 137 mmol/L (137-145); WBC 13.5 k/uL (3.8-10.6)
[2023-05-07 13:32] LABS: Hepatitis A Antibody IgM Nonreactive (Nonreactive); Hepatitis B Core IgM Nonreactive (Nonreactive); Hepatitis B Surface Antigen Nonreactive (Nonreactive)
[2023-05-07 14:46] LABS: Hepatitis C IgG Antibody Nonreactive (Nonreactive)
[2023-05-07] MEDS: ALPRAZolam 0.5 MG TAB PO PRN (15:25)
[2023-05-07] MEDS ORDERED: ALPRAZolam 0.5 MG TAB PO SCH (16:00)
--- NOTE | 2023-05-07 16:18 | P.GSCN ---
History of Present Illness Consult date: 05/07/23 History of present illness: 27-year-old female presented to the hospital malaise fever. She was noticed to have a urinary tract infection on urinalysis. She had an elevated white count of 19,000. She is admitted to the hospital. A computed tomography scan showed bilateral tiny renal stones, 4 mm. There is no evidence of hydronephrosis or ureteral stones. She is still having some discomfort. She passed stones in the past when she was . SHe has seen Dr Almazan in the past. Review of Systems All systems: negative - Constitutional Denies fever, Denies weight loss - EENT Eyes: denies blurred vision Ears, nose, mouth and throat: Denies dysphagia - Cardiovascular Denies chest pain, Denies shortness of breath - Respiratory Denies cough, Denies 7 - Gastrointestinal Reports as per HPI - Genitourinary Genitourinary: Denies dysuria, Denies hematuria - Integumentary Denies rash, Denies unusual bruising - Neurological Denies headaches, Denies syncope - Hematologic/Lymphatic Denies easy bleeding, Denies easy bruising Past Medical History Past Medical History: Asthma Additional Past Medical History / Comment(s): postural orthostatic tachycaria syndrome, kidney stone, heterozygous for prothrombin [id number] Gene mutation, pre eclampsia History of Any Multi-Drug Resistant Organisms: None Reported Past Surgical History: Orthopedic Surgery Additional Past Surgical History / Comment(s): right wrist Past Anesthesia/Blood Transfusion Reactions: No Reported Reaction Past Psychological History: ADD/ADHD, Anxiety, Depression Smoking Status: Never smoker Past Alcohol Use History: None Reported Past Drug Use History: None Reported - Past Family History Mother Family Medical History: Cancer, Hypertension Additional Family Medical History / Comment(s): breast and ovarian cancer Father Family Medical History: No Reported History Sister(s) Additional Family Medical History / Comment(s): DVT and bilateral PEs following delivery Medications and Allergies Home Medications Medication Instructions Recorded Confirmed Type Pnv No.95/Ferrous Fum/Folic AC 1 tab PO DAILY 12/17/18 05/05/23 History [ Multivitamin Tablet] Sertraline [Zoloft] 50 mg PO HS 07/10/19 05/05/23 History buPROPion HCL [buPROPion HCL XL] 300 mg PO DAILY 03/06/22 05/05/23 History ALPRAZolam [Xanax] 0.5 mg PO HS 05/05/23 05/05/23 History Dextroamphetamine/Amphetamine 30 mg PO BID 05/05/23 05/05/23 History [Adderall] Allergies Allergy/AdvReac Type Severity Reaction Status Date / Time Iodinated Contrast Media Allergy Anaphylaxis Verified 05/05/23 17:27 [Iodinated Contrast Media - Oral and] Surgical - Exam Vital Signs Temp Pulse Resp BP Pulse Ox 102.9 F H 103 H 20 151/80 98 05/05/23 13:48 05/05/23 13:48 05/05/23 13:48 05/05/23 13:48 05/05/23 13:48 - General well developed, well nourished, no distress - Eyes normal ocular movement, no icteric - ENT no hearing loss, no congestion - Neck no masses, trachea midline - Respiratory normal respiratory effort, clear to auscultation - Abdomen Abdomen: soft, non tender, no guarding, no rigid, no rebound - Integumentary no rash, no abnormal pigmentation - Neurologic no disoriented, no combative - Psychiatric oriented to time, oriented to person, oriented to place, speech is normal, memory intact Results - Labs 05/07/23 06:40 05/07/23 06:40 Abnormal Lab Results - Last 24 Hours (Table) 05/07/23 05/07/23 Range/Units 06:40 06:40 WBC 13.5 H (3.8-10.6) k/uL RBC 3.46 L (3.80-5.40) m/uL Hgb 10.2 L (11.4-16.0) gm/dL Hct 30.5 L (34.0-46.0) % Neutrophils # 9.7 H (1.3-7.7) k/uL Monocytes # 1.1 H (0-1.0) k/uL Carbon Dioxide 20 L (22-30) mmol/L BUN 4 L (7-17) mg/dL Creatinine 0.46 L (0.52-1.04) mg/dL Glucose 100 H (74-99) mg/dL Microbiology - Last 24 Hours (Table) 05/05/23 17:10 Blood Culture - Preliminary Blood 05/05/23 17:00 Blood Culture - Preliminary Blood 05/05/23 14:16 Urine Culture - Preliminary Urine,Voided Gram Neg Bacilli Diabetes panel 05/07/23 Range/Units 06:40 Sodium 137 (137-145) mmol/L Potassium 4.1 (3.5-5.1) mmol/L Chloride 107 (98-107) mmol/L Carbon Dioxide 20 L (22-30) mmol/L BUN 4 L (7-17) mg/dL Creatinine 0.46 L (0.52-1.04) mg/dL Glucose 100 H (74-99) mg/dL Calcium 8.8 (8.4-10.2) mg/dL Calcium panel 05/07/23 Range/Units 06:40 Calcium 8.8 (8.4-10.2) mg/dL Pituitary panel 05/07/23 Range/Units 06:40 Sodium 137 (137-145) mmol/L Potassium 4.1 (3.5-5.1) mmol/L Chloride 107 (98-107) mmol/L Carbon Dioxide 20 L (22-30) mmol/L BUN 4 L (7-17) mg/dL Creatinine 0.46 L (0.52-1.04) mg/dL Glucose 100 H (74-99) mg/dL Calcium 8.8 (8.4-10.2) mg/dL Adrenal panel 05/07/23 Range/Units 06:40 Sodium 137 (137-145) mmol/L Potassium 4.1 (3.5-5.1) mmol/L Chloride 107 (98-107) mmol/L Carbon Dioxide 20 L (22-30) mmol/L BUN 4 L (7-17) mg/dL Creatinine 0.46 L (0.52-1.04) mg/dL Glucose 100 H (74-99) mg/dL Calcium 8.8 (8.4-10.2) mg/dL - Imaging CT scan - abdomen: report reviewed, image reviewed CT scan - pelvis: report reviewed, image reviewed Assessment and Plan Assessment: Impression: Urinary tract infection with sepsis. Bilateral renal stones nonobstructing. Recommendations: From a urologic standpoint no intervention will be required. She can fu with Dr seymour the office to discuss treatment to the small renal stones
--- NOTE | 2023-05-07 16:52 | P.PN ---
Subjective Progress Note Date: 05/07/23 Principal diagnosis: Reason for follow-up is sepsis and pyelonephritis Patient is a 27-year-old female with a past medical history significant for asthma presenting to the hospital for evaluation of fever along with generalized bodyaches, patient be diagnosed with a pyelonephritis. On today's evaluation that is 05/07/2023, patient did have resolution of the fever and has been afebrile this morning, patient is breathing comfortably and is currently on room air, patient has been complaining of some cough but not bring up any sputum, patient denies nausea vomiting or diarrhea still complaining of bilateral flank pain more on the left side. Patient white count is down to 13.5, creatinine is 0.46 urine is showing gram- negative blood culture for negative Objective - Vital Signs Vital signs: Vital Signs Temp 98.1 F 05/07/23 07:12 Pulse 115 H 05/07/23 07:12 Resp 16 05/07/23 07:12 BP 126/83 05/07/23 07:12 Pulse Ox 92 L 05/07/23 07:12 FiO2 Intake & Output 05/06/23 05/07/23 05/07/23 18:59 06:59 18:59 Intake Total 300 Balance 300 Intake: Intake, IV Titration 300 Amount Sodium Chloride 0.9% 1, 300 000 ml @ 100 mls/hr IV . Q10H [facility] Rx#:[id number] Other: Voiding Method Toilet Toilet Toilet # Voids 1 3 - Exam GENERAL DESCRIPTION: Young female lying in bed in no distress RESPIRATORY SYSTEM: Unlabored breathing , decreased breath sounds at bases HEART: S1 S2 regular rate and rhythm , ABDOMEN: Soft , no tenderness EXTREMITIES: No edema feet - Labs CBC & Chem 7: 05/07/23 06:40 05/07/23 06:40 Labs: Abnormal Lab Results - Last 24 Hours (Table) 05/07/23 05/07/23 Range/Units 06:40 06:40 WBC 13.5 H (3.8-10.6) k/uL RBC 3.46 L (3.80-5.40) m/uL Hgb 10.2 L (11.4-16.0) gm/dL Hct 30.5 L (34.0-46.0) % Neutrophils # 9.7 H (1.3-7.7) k/uL Monocytes # 1.1 H (0-1.0) k/uL Carbon Dioxide 20 L (22-30) mmol/L BUN 4 L (7-17) mg/dL Creatinine 0.46 L (0.52-1.04) mg/dL Glucose 100 H (74-99) mg/dL Microbiology - Last 24 Hours (Table) 05/05/23 17:10 Blood Culture - Preliminary Blood 05/05/23 17:00 Blood Culture - Preliminary Blood 05/05/23 14:16 Urine Culture - Preliminary Urine,Voided Gram Neg Bacilli Assessment and Plan (1) Pyelonephritis Current Visit: Yes Status: Acute Code(s): N12 - TUBULO-INTERSTITIAL NEPHRITIS, NOT SPCF ACUTE OR CHRONIC SNOMED Code(s): 75505655 (2) Sepsis Current Visit: Yes Status: Acute Code(s): A41.9 - SEPSIS, UNSPECIFIED ORGANISM SNOMED Code(s): 82901590 Plan: 1patient presented to hospital with sepsis in this patient who did have fever tachycardia elevated white count did have significantly positive UA source is likely complicated UTI and pyelonephritis as the patient did have a 4 mm renal stone on the right side with mild hydronephrosis patient also have elevated liver enzymes ultrasound abdomen did not show any features suggestive of cholecystitis 2-patient did have resolution of her fever white count is trending down, patient to continue with Rocephin 2 g daily while waiting for the culture to finalize we will order incentive spirometry for her respiratory symptoms Dictation was produced using [employer] dictation software. please excuse any grammatical, word or spelling errors. Time with Patient: Less than 30
--- NOTE | 2023-05-08 00:07 | PN ---
PROGRESS NOTE DATE OF SERVICE: 05/07/2023 SUBJECTIVE: This is a 27-year-old woman, who was admitted with multiple medical problems including abdominal pain and flank pain, has renal etiology also. The patient also had features of UTI. Culture is showing gram-negative bacilli. White count is 13.5, which is improving. PHYSICAL EXAMINATION: VITAL SIGNS: Pulse is 115, blood pressure 126/80, respirations 16. CHEST: Clear to auscultation. CARDIOVASCULAR: S1 and S2 muffled. ABDOMEN: Soft, minimal discomfort in the loin area. LABORATORY DATA: WBC 13.5, other labs are noted. ASSESSMENT: 1. Possible acute urinary tract infection with sepsis present on admission. 2. Bilateral renal calculus with pain. 3. History of cholelithiasis. 4. History of asthma. 5. History of postural tachycardia syndrome. 6. History of heterozygous for prothrombin [id number] gene mutation. 7. History of preeclampsia. 8. History of attention deficit disorder, attention deficit hyperactive disorder. 9. Depression. RECOMMENDATIONS: Recommend to continue current medications. Continue symptomatic treatment. Otherwise, at this time, I would recommend continue the antibiotics. Repeat labs in the morning. Symptomatic treatment. Urology consultation. Infectious Disease evaluation. Guarded prognosis. Further recommendations to follow. MMODL / IJN: [id number] /
[2023-05-08 07:51] VITALS: RESP 17
--- NOTE | 2023-05-08 09:11 | P.DS ---
Providers Date of admission: 05/05/23 16:32 Attending physician: Rolo Dos Santos Consults: 05/05/23 16:39 Consult Physician Urgent Consulting Provider: Wilfredo Lei Consult Reason/Comments: UTI, sepsis Do you want consulting provider notified?: Yes 05/07/23 12:05 Consult Physician Routine Consulting Provider: Slade Almazan Consult Reason/Comments: kidney stones Do you want consulting provider notified?: Yes Primary care physician: Teja Engle - Discharge Diagnosis(es) (1) Sepsis Current Visit: Yes Status: Acute (2) UTI (urinary tract infection) Current Visit: Yes Status: Acute (3) ADD (attention deficit disorder) Current Visit: Yes Status: Acute Hospital Course: This is a 27-year-old female who was admitted with complaints of abdominal pain and flank pain and was found to have a positive UTI with ecoli. Patient had an outpatient ultrasound around 10 days ago that showed nonobstructing kidney stones. She started to feel better after that but then developed continued ab dominal pain and fever and chills. She was seen and evaluated by infectious disease and urology. Ultrasound on this admission showed a 4 mm right kidney stone with very mild hydronephrosis. She has been maintained on Rocephin during this admission. White count has been trending down. Urology is recommending no intervention. Patient is very anxious to go home. She may be discharged today if cleared by infectious disease and with their recommendation for discharge antibiotics. Patient seen and evaluated by nurse practitioner, physician in agreement with plan Plan - Discharge Summary Discharge Rx Participant: No New Discharge Prescriptions: Continue Pnv No.95/Ferrous Fum/Folic AC [ Multivitamin Tablet] 1 tab PO DAILY Sertraline [Zoloft] 50 mg PO HS buPROPion HCL [buPROPion HCL XL] 300 mg PO DAILY Dextroamphetamine/Amphetamine [Adderall] 30 mg PO BID ALPRAZolam [Xanax] 0.5 mg PO HS Discharge Medication List Pnv No.95/Ferrous Fum/Folic AC [ Multivitamin Tablet] 1 tab PO DAILY 12/17/18 [History] Sertraline [Zoloft] 50 mg PO HS 07/10/19 [History] buPROPion HCL [buPROPion HCL XL] 300 mg PO DAILY 03/06/22 [History] ALPRAZolam [Xanax] 0.5 mg PO HS 05/05/23 [History] Dextroamphetamine/Amphetamine [Adderall] 30 mg PO BID 05/05/23 [History] Follow up Appointment(s)/Referral(s): Teja Engle MD [Primary Care Provider] - 3 Days Discharge Disposition: HOME SELF-CARE
[2023-05-08 11:26] LABS: Basophils # (A) 0.04 X 10*3/uL (0.00-0.10); Basophils % (A) 0.5 %; Eosinophils # (A) 0.54 X 10*3/uL (0.04-0.35); Eosinophils % (A) 7.2 %; HCT 30.4 % (37.2-46.3); HGB 9.8 g/dL (12.0-15.0); Lymphocytes # (A) 2.91 X 10*3/uL (0.90-5.00); Lymphocytes % (A) 38.6 %; MCH 27.9 pg (27.0-32.0); MCHC 32.2 g/dL (32.0-37.0); MCV 86.6 FL (80.0-97.0); NRBC Per 100 WBC 0 X 10*3/uL (0.00-0.01); Neutrophils # (A) 3.37 X 10*3/uL (1.80-7.70); Neutrophils % (A) 44.8 %; Platelet Count 465 X 10*3/uL (140-440); RBC 3.51 X 10*6/uL (4.10-5.20); RDW 15.5 % (11.5-14.5); WBC 7.53 X 10*3/uL (4.50-10.00)
[2023-05-08 11:54] LABS: Carbon Dioxide 22.2 mmol/L (21.6-31.8); Chloride 107 mmol/L (96-109); Glucose 141 mg/dL (70-110); Potassium 4.4 mmol/L (3.5-5.5); Sodium 139 mmol/L (135-145)
[2023-05-08 11:55] LABS: ALT 41 U/L (8-44); AST 15 U/L (13-35); Albumin 3.3 g/dL (3.8-4.9); Albumin/Globulin Ratio 1.32 Ratio (1.60-3.17); Alkaline Phosphatase 138 U/L (41-126); Calcium 8.8 mg/dL (8.7-10.3); Globulin 2.5 g/dL (1.6-3.3); Total Bilirubin 0.4 mg/dL (0.3-1.2); Total Protein 5.8 g/dL (6.2-8.2)
[2023-05-08 15:10] VITALS: BP 139/89; PULSE 101; TEMP 97.7
--- NOTE | 2023-05-08 23:19 | P.PN ---
Subjective Progress Note Date: 05/08/23 Principal diagnosis: Reason for follow-up is sepsis and pyelonephritis Patient is a 27-year-old female with a past medical history significant for asthma presenting to the hospital for evaluation of fever along with generalized bodyaches, patient be diagnosed with a pyelonephritis. On today's evaluation that is 05/08/2023,the patient denies any fever or any chills, patient is breathing comfortably on room air, the patient denies chest pain shortness of breath and no significant cough, patient did have improvement in her flank pain no nausea vomiting and no diarrhea. Patient white count normalized to 7.53, creatinine 0.6 urine with an E. coli sensitive pathogen blood culture has been negative Objective - Vital Signs Vital signs: Vital Signs Temp 97.9 F 05/08/23 07:45 Pulse 105 H 05/08/23 07:45 Resp 17 05/08/23 07:45 BP 147/102 05/08/23 07:45 Pulse Ox 95 05/08/23 07:45 FiO2 Intake & Output 05/07/23 05/08/23 05/08/23 18:59 06:59 18:59 Intake Total 1200 240 Balance 1200 240 Intake: Intake, IV Titration 1200 Amount Sodium Chloride 0.9% 1, 1200 000 ml @ 100 mls/hr IV . Q10H [facility] Rx#:[id number] Oral 240 Other: Voiding Method Toilet Toilet Toilet # Voids 3 - Exam GENERAL DESCRIPTION: Young female lying in bed in no distress RESPIRATORY SYSTEM: Unlabored breathing , decreased breath sounds at bases HEART: S1 S2 regular rate and rhythm , ABDOMEN: Soft , no tenderness EXTREMITIES: No edema feet - Labs CBC & Chem 7: 05/08/23 06:04 05/08/23 06:04 Labs: Abnormal Lab Results - Last 24 Hours (Table) 05/08/23 Range/Units 06:04 RBC 3.51 L (4.10-5.20) X 10*6/uL Hgb 9.8 L (12.0-15.0) g/dL Hct 30.4 L (37.2-46.3) % RDW 15.5 H (11.5-14.5) % Plt Count 465 H (140-440) X 10*3/uL MPV 9.0 L (9.5-12.2) FL Immature Gran # 0.07 H (0.00-0.04) X 10*3/uL Eosinophils # 0.54 H (0.04-0.35) X 10*3/uL Microbiology - Last 24 Hours (Table) 05/05/23 17:10 Blood Culture - Preliminary Blood 05/05/23 17:00 Blood Culture - Preliminary Blood 05/05/23 14:16 Urine Culture - Final Urine,Voided Escherichia coli Assessment and Plan (1) Pyelonephritis Status: Acute Code(s): N12 - TUBULO-INTERSTITIAL NEPHRITIS, NOT SPCF ACUTE OR CHRONIC SNOMED Code(s): 37084647 (2) Sepsis Status: Acute Code(s): A41.9 - SEPSIS, UNSPECIFIED ORGANISM SNOMED Code(s): 40464074 Plan: 1patient presented to hospital with sepsis in this patient who did have fever tachycardia elevated white count did have significantly positive UA source is likely complicated UTI and pyelonephritis as the patient did have a 4 mm renal stone on the right side with mild hydronephrosis patient also have elevated liver enzymes ultrasound abdomen did not show any features suggestive of cholecystitis 2-patient did have resolution of her fever white count has normalized urine has been finalized with an E. coli that is a sensitive pathogen blood culture has been negative, plan to finish therapy with oral Ceftin prescription sent to the pharmacy multiple question concern also Dictation was produced using [employer] dictation software. please excuse any grammatical, word or spelling errors. Time with Patient: Less than 30
== END 2023-05-08 15:12 | disposition home or self-care (01) | DRG 872 ==
LOC: EC 13:41 → 5NMEDONC 16:32
PROVIDERS: ADMIT Family Medicine; ATTEND Family Medicine
DX: A41.51 Sepsis due to Escherichia coli [E. coli] (principal); D68.52 Prothrombin gene mutation; N13.6 Pyonephrosis; J45.909 Unspecified asthma, uncomplicated; F32.A Depression, unspecified; G90.A Postural orthostatic tachycardia syndrome [POTS]; K80.20 Calculus of gallbladder without cholecystitis without obstruction; F41.9 Anxiety disorder, unspecified; F90.9 Attention-deficit hyperactivity disorder, unspecified type; Z79.899 Other long term (current) drug therapy; Z87.442 Personal history of urinary calculi; Z91.041 Radiographic dye allergy status
CPT/HCPCS: 36415; 74176; 76705; 76770; 80048; 80053; 80074; 81001; 81025; 82150; 83605; 83690; 85025; 87040; 87077; 87086; 87186; 87636; 93005; 96361; 96374; 96375; 99285

== ENCOUNTER → 2023-06-07 | Outpatient (CLI) | payer MEDICAID ==
[2023-06-07 15:03] LABS: Basophils # (A) 0.06 X 10*3/uL (0.00-0.10); Basophils % (A) 0.7 %; Eosinophils # (A) 0.37 X 10*3/uL (0.04-0.35); Eosinophils % (A) 4.4 %; HCT 41.2 % (37.2-46.3); HGB 13.2 g/dL (12.0-15.0); Lymphocytes # (A) 3.27 X 10*3/uL (0.90-5.00); Lymphocytes % (A) 38.5 %; MCH 28.3 pg (27.0-32.0); MCV 88.2 FL (80.0-97.0); Mean Platelet Volume 9.4 FL (9.5-12.2); Monocytes # (A) 0.65 X 10*3/uL (0.20-1.00); Monocytes % (A) 7.7 %; NRBC Per 100 WBC 0 X 10*3/uL (0.00-0.01); Neutrophils # (A) 4.12 X 10*3/uL (1.80-7.70); Neutrophils % (A) 48.5 %; Platelet Count 457 X 10*3/uL (140-440); RBC 4.67 X 10*6/uL (4.10-5.20); RDW 14.8 % (11.5-14.5); WBC 8.49 X 10*3/uL (4.50-10.00)
[2023-06-07 15:23] LABS: ALT 47 U/L (8-44); AST 26 U/L (13-35); Albumin 5.1 g/dL (3.8-4.9); Albumin/Globulin Ratio 1.82 Ratio (1.60-3.17); Alkaline Phosphatase 91 U/L (41-126); BUN/Creat Ratio 22.57 Ratio (12.00-20.00); Blood Urea Nitrogen 15.8 mg/dL (9.0-27.0); Calcium 10.2 mg/dL (8.7-10.3); Carbon Dioxide 24.8 mmol/L (21.6-31.8); Chloride 100 mmol/L (96-109); Globulin 2.8 g/dL (1.6-3.3); Glucose 91 mg/dL (70-110); Potassium 4.3 mmol/L (3.5-5.5); Sodium 138 mmol/L (135-145); Total Bilirubin 0.3 mg/dL (0.3-1.2); Total Protein 7.9 g/dL (6.2-8.2)
[2023-06-08 01:20] LABS: Alternaria alternata IgE <0.10 kU/L; Aspergillus fumagatus IgE <0.10 kU/L; Birch IgE <0.10 kU/L; Cat Epith & Dander IgE <0.10 kU/L; Cladosporian herbarum IgE <0.10 kU/L; Clam IgE <0.10 kU/L; Cockroach IgE <0.10 kU/L; Codfish IgE <0.10 kU/L; Dog Dander IgE 0.12 kU/L; Egg White IgE <0.10 kU/L; Elm IgE <0.10 kU/L; Maple (Box Elder) IgE <0.10 kU/L; Oak IgE <0.10 kU/L; Peanut IgE <0.10 kU/L; Ragweed,Common IgE <0.10 kU/L; Red Top (Bentgrass) IgE <0.10 kU/L; Scallop IgE <0.10 kU/L; Shrimp IgE <0.10 kU/L; Soybean IgE <0.10 kU/L; Walnut IgE (Food) <0.10 kU/L
== END | disposition home or self-care (01) ==
LOC: LABWHC1 10:47
PROVIDERS: ATTEND Family Medicine
DX: O03.9 Complete or unspecified spontaneous abortion without complication (principal); F90.9 Attention-deficit hyperactivity disorder, unspecified type; F43.21 Adjustment disorder with depressed mood
CPT/HCPCS: 36415; 80053; 82785; 84439; 84443; 85025; 86003; 86038

== ENCOUNTER → 2023-08-16 | Outpatient (CLI) | payer MEDICAID | END | disposition home or self-care (01) | LOC: LABWHC1 13:26 | PROVIDERS: ATTEND Obstetrics & Gynecology | DX: O20.0 Threatened abortion (principal); Z3A.00 Weeks of gestation of pregnancy not specified | CPT/HCPCS: 36415; 84702 ==

== ENCOUNTER → 2023-08-22 | Outpatient (CLI) | payer MEDICAID | END | disposition home or self-care (01) | LOC: LABWHC1 12:47 | PROVIDERS: ATTEND Obstetrics & Gynecology | DX: O02.1 Missed abortion (principal) | CPT/HCPCS: 36415; 84702 ==

== ENCOUNTER → 2023-08-30 | Outpatient (CLI) | payer MEDICAID | END | disposition home or self-care (01) | LOC: LABWHC1 08:37 | PROVIDERS: ATTEND Obstetrics & Gynecology | DX: O02.1 Missed abortion (principal); Z3A.00 Weeks of gestation of pregnancy not specified | CPT/HCPCS: 36415; 84702 ==

== ENCOUNTER → 2024-05-14 | Outpatient (CLI) | payer OTHER ==
--- NOTE | 2024-05-14 17:57 | CT ---
EXAMINATION TYPE: CT abdomen pelvis wo con DATE OF EXAM: 05/14/2024 5:17 PM COMPARISON: None CLINICAL INDICATION: Female, 28 years old with history of Z87.442 PERSONAL HISTORY OF URINARY CALCUL I; Left flank pain xfew days. Hx of kidney stones. TECHNIQUE: Axial CT abdomen pelvis wo con;Sagittal and coronal reformats were created on a separate workstation. Contrast used: mL of , (none if empty) Oral contrast used: without Oral Contrast (none if empty) CT DLP: 749 mGycm, Automated exposure control for dose reduction was used. FINDINGS: LOWER CHEST: Unremarkable ABDOMEN LIVER: Unremarkable GALLBLADDER AND BILE DUCTS: Unremarkable. PANCREAS: Unremarkable. SPLEEN: Unremarkable. ADRENAL GLANDS: Unremarkable. KIDNEYS AND URETERS: No evidence of hydronephrosis or obstructing renal calculus. Nonobstructing left 5 mm calculus no right renal calculi. The ureters are unremarkable. PELVIS BLADDER: No evidence for wall thickening or mass given limitations of exam. REPRODUCTIVE: Left ovarian dominant follicle about the 28 mm. ABDOMEN & PELVIS STOMACH AND BOWEL: No evidence of bowel obstruction. Appendix is normal. PERITONEUM/RETROPERITONEUM: No evidence of pneumoperitoneum or free fluid. VASCULATURE: No evidence of aortic aneurysm. MUSCULOSKELETAL: No acute osseous abnormalities LYMPH NODES: No gross evidence for lymphadenopathy. SOFT TISSUE/ABDOMINAL WALL: Unremarkable IMPRESSION: 1. No evidence for acute process. No obstructive uropathy or hydronephrosis. Nonobstructing obstruct ing left 5 mm calculus. 2. Left ovarian dominant 20 mm follicle. 3. The appendix normal. [facility], , 05/14/2024 5:54 PM
== END | disposition home or self-care (01) ==
LOC: RADCTMAIN 16:53
PROVIDERS: ATTEND Family Medicine
DX: N20.0 Calculus of kidney (principal); Z87.442 Personal history of urinary calculi
CPT/HCPCS: 74176